=== PATIENT | male | born 1970 | race Caucasian/White ===

== ENCOUNTER 2023-03-14 09:25 | Outpatient (OUT) | payer OTHER, SELFPAY ==
[2023-03-14 10:14] LABS: Basophils Absolute Auto 0.1 10^3/uL (0.0-0.1); Basophils Percent Auto 1.5 % (0.2-2.0); Eosinophils Absolute Auto 0.3 10^3/uL (0.0-0.7); Eosinophils Percent Auto 4.4 % (0.9-7.0); Hematocrit 47.3 % (42.0-54.0); Hemoglobin 15.3 g/dL (14.0-18.0); Immature Granulocytes Abs Auto 0.04 10^3/uL (0.00-0.03); Immature Granulocytes Pct Auto 0.6 % (0.0-0.5); Lymphocytes Absolute Auto 1.8 10^3/uL (1.2-3.8); Lymphocytes Percent Auto 24.1 % (20.5-60.0); Mean Corpuscular HGB Conc 32.3 g/dL (29.9-35.2); Mean Corpuscular Hemoglobin 28.2 pg (25.9-34.0); Mean Corpuscular Volume 87.3 fL (80.0-94.0); Mean Platelet Volume 9.6 fL (9.5-13.5); Monocytes Absolute Auto 0.6 10^3/uL (0.3-0.8); Monocytes Percent Auto 8.3 % (1.7-12.0); Neutrophils Absolute Auto 4.4 10^3/uL (1.4-6.5); Neutrophils Percent Auto 61.1 % (43.0-75.0); Platelet Count 215 10^3/uL (150-450); Red Blood Count 5.42 10^6/uL (4.70-6.10); Red Cell Distribution Width 13.1 % (11.0-15.0); White Blood Count 7.3 10^3/uL (4.0-11.0)
[2023-03-14 10:50] LABS: Alanine Aminotransferase 71 U/L (16-63); Alkaline Phosphatase 69 U/L (46-116); Anion Gap 12.3; Aspartate Amino Transferase 32 U/L (15-37); Bilirubin Total 0.4 mg/dL (0.2-1.0); Calcium 9.2 mg/dL (8.5-10.1); Chloride 103 mmol/L (98-107); Chol HDL Ratio 5.6; Cholesterol 212 mg/dL (<=200); Estimated GFR (African America >60 (>=60); Estimated GFR (Non-African Ame >60 (>=60); Free T3 2.83 pg/mL (2.18-3.98); Globulin 4.1 g/dL; Glucose 103 mg/dL (74-106); HDL Cholesterol 38 mg/dL (40-60); Potassium 4.3 mmol/L (3.5-5.1); Sodium 140 mmol/L (136-145); Thyroid Stimulating Hormone 1.813 uIU/mL (0.358-3.740); Total Protein 8.1 g/dL (6.4-8.2); Triglycerides 122 mg/dL (<=150); Uric Acid 9.2 mg/dL (3.5-7.2); VLDL CHOLESTEROL 24.4 mg/dL
[2023-03-14 10:52] LABS: Prostate Specific Antigen Scrn 1.09 ng/mL (<=4.00)
[2023-03-14 11:19] LABS: Estimated Average Glucose 120 mg/dL; Glycohemoglobin A1C 5.8 % (4.5-6.2)
[2023-03-15 11:09] LABS: Insulin 39.3 uIU/mL (2.6-24.9)
== END 2023-03-14 09:26 | disposition home or self-care (01) ==
LOC: LAB 09:28
PROVIDERS: PCP Family Medicine; Visit Provider Family Medicine
DX: Z00.00 Encounter for general adult medical examination without abnormal findings (principal); Z12.5 Encounter for screening for malignant neoplasm of prostate
CPT/HCPCS: 36415; 80053; 80061; 83036; 83525; 84436; 84443; 84481; 84550; 85025; G0103

== ENCOUNTER 2023-03-17 06:58 | Outpatient (RCR) | payer OTHER, SELFPAY | END 2023-04-01 16:52 | disposition home or self-care (01) | LOC: PT 06:58 | PROVIDERS: PCP Family Medicine; Visit Provider Family Medicine | DX: M54.2 Cervicalgia (principal); M25.512 Pain in left shoulder; M25.561 Pain in right knee; M25.571 Pain in right ankle and joints of right foot; M25.521 Pain in right elbow; R29.3 Abnormal posture | CPT/HCPCS: 97163 ==

== ENCOUNTER 2023-05-23 09:34 | Outpatient (OUT) | payer OTHER, SELFPAY ==
[2023-05-23 09:51] LABS: Basophils Absolute Auto 0.1 10^3/uL (0.0-0.1); Basophils Percent Auto 0.9 % (0.2-2.0); Eosinophils Absolute Auto 0.5 10^3/uL (0.0-0.7); Eosinophils Percent Auto 5.3 % (0.9-7.0); Hematocrit 44.2 % (42.0-54.0); Hemoglobin 14.3 g/dL (14.0-18.0); Immature Granulocytes Abs Auto 0.04 10^3/uL (0.00-0.03); Immature Granulocytes Pct Auto 0.4 % (0.0-0.5); Lymphocytes Absolute Auto 2.2 10^3/uL (1.2-3.8); Lymphocytes Percent Auto 24.3 % (20.5-60.0); Mean Corpuscular HGB Conc 32.4 g/dL (29.9-35.2); Mean Corpuscular Volume 86.7 fL (80.0-94.0); Mean Platelet Volume 9.8 fL (9.5-13.5); Monocytes Absolute Auto 0.9 10^3/uL (0.3-0.8); Neutrophils Absolute Auto 5.4 10^3/uL (1.4-6.5); Neutrophils Percent Auto 59.1 % (43.0-75.0); Platelet Count 209 10^3/uL (150-450); Red Cell Distribution Width 13.5 % (11.0-15.0); White Blood Count 9.1 10^3/uL (4.0-11.0)
--- NOTE | 2023-05-23 09:55 | XR_ITS ---
The [address] [address] Patient Name: ROMERO SCOTT MRN: [id number] date: 1970 Sex: M Assigned Patient Location: LAB Current Patient Location: LAB Accession/Order Number: [id number] Exam Date: 05/23/2023 10:06 Report Date: 05/23/2023 11:53 At the request of: SHARATH IVORY Procedure: XR ankle RT min 3V EXAM: XR ankle RT min 3V HISTORY: Ankle Pain M25.579 COMPARISON: None TECHNIQUE: 3 views of the right ankle were obtained. FINDINGS: Ankle mortise appears grossly intact. No definite acute fracture or dislocation. Small spur at the medial aspect of the medial malleolus of the distal tibia. Small posterior calcaneal spur. [id number] soft tissue swelling laterally. Small ankle joint effusion suggested anteriorly on the lateral view. XR/XR ankle RT min 3V IMPRESSION: Right ankle study demonstrates degenerative change as described. Soft tissue swelling laterally as noted. Small ankle joint effusion suggested as described. Follow up as needed. Electronically authenticated by: EDUARDO GIRALDO Date: 05/23/2023 11:53
[2023-05-23 10:00] LABS: Erythrocyte Sedimentation Rate 23 mm/hr (<=20)
[2023-05-23 10:14] LABS: Uric Acid 7.2 mg/dL (3.5-7.2)
== END 2023-05-23 09:35 | disposition home or self-care (01) ==
LOC: LAB 09:35
PROVIDERS: PCP Family Medicine; Visit Provider Family Medicine
DX: M25.579 Pain in unspecified ankle and joints of unspecified foot (principal); M25.471 Effusion, right ankle
CPT/HCPCS: 36415; 73610; 84550; 85025; 85652

== ENCOUNTER 2023-06-09 09:25 | Outpatient (OUT) | payer OTHER, SELFPAY ==
--- NOTE | 2023-06-09 09:28 | MR_ITS ---
The [address] [address] Patient Name: ROMREO SCOTT MRN: [id number] date: 1970 Sex: M Assigned Patient Location: MRI Current Patient Location: Accession/Order Number: [id number] Exam Date: 06/09/2023 10:00 Report Date: 06/10/2023 08:47 At the request of: SHARATH IVORY Procedure: MR ankle RT wo con EXAM: MR ankle RT wo con REASON FOR EXAM: ankle pain M25.579. TECHNIQUE: Multiplanar, multisequence imaging of the right ankle was performed without contrast COMPARISON: Plain radiograph 05/23/2023. FINDINGS: There is fusiform thickening and intermediate signal involving the Achilles tendon with distal Achilles enthesophytes consistent with tendinosis. There is a small focal low-grade tear involving the lateral insertional fibers (series 11, image 11; series 8, image 12). Reactive edema within the posterior calcaneus. No evidence of complete tear. The plantar fascia is intact. Laterally, the peroneal tendons demonstrate mild thickening and intermediate signal proximally. The peroneus longus tendon at the level the peroneal tubercle extending to the peroneal tunnel appears thin and attenuated, potentially reflecting partial tearing. A complete rupture not identified. The superficial peroneal retinaculum is intact. Thickening and intermediate signal of the anterior talofibular and calcaneofibular ligaments is consistent with prior lateral ligamentous injury. There is also mild thickening and intermediate signal of the anterior syndesmotic ligament potentially reflect a remote high ankle sprain. Small amount of fluid is present within the anterior lateral gutter. Medially, the medial flexor tendons demonstrate normal thickness and signal without tendinosis or tear. The deep deltoid ligament is intact. The spring ligament is intact. Anteriorly, the anterior extensor tendons demonstrate normal thickness and signal without tendinosis or tear. The bone marrow signal is without acute fracture. Small moderate tibiotalar effusion is present. The talar dome is congruent. The subtalar joints intact. The sinus tarsi is mildly edematous. The midfoot is congruent with mild osteoarthritis. The plantar musculature demonstrates normal bulk and signal. Nonspecific subcutaneous edema about the ankle. MR/MR ankle RT wo con IMPRESSION: 1. 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 2. Peroneal tendinosis with suspicion of low to high-grade partial tearing of the peroneus longus tendon extending from the peroneal tubercle to the peroneal tunnel. Complete rupture not identified. 3. Sequela of prior lateral ligamentous injury including prior high ankle sprain. No evidence of acute ligamentous injury. 4. Small to moderate amount of fluid within the anterolateral gutter, can be seen with anterolateral impingement. 5. Mild mid and hindfoot osteoarthritis. Electronically authenticated by: RAI STAFFORD Date: 06/10/2023 08:47
== END 2023-06-09 09:26 | disposition home or self-care (01) ==
LOC: MRI 09:25
PROVIDERS: PCP Family Medicine; Visit Provider Family Medicine
DX: M25.579 Pain in unspecified ankle and joints of unspecified foot (principal); M76.61 Achilles tendinitis, right leg
CPT/HCPCS: 73721

== ENCOUNTER 2023-06-29 14:54 | Outpatient (OUT) | payer OTHER, SELFPAY ==
--- NOTE | 2023-06-29 | XR_ITS ---
The [address] [address] Patient Name: ROMERO SCOTT MRN: [id number] date: 1970 Sex: M Assigned Patient Location: RAD Current Patient Location: RAD Accession/Order Number: [id number] Exam Date: 06/29/2023 15:54 Report Date: 06/29/2023 19:52 At the request of: SETH BARNES Procedure: XR ankle RT min 3V EXAM: XR ankle RT min 3V HISTORY: RIGHT ANKLE PAIN laterally for the past 6 months. COMPARISON: 05/23/2023 TECHNIQUE: 3 views of the right ankle were obtained. FINDINGS: There is no evidence of an acute fracture or dislocation. The mortise is intact. No osteochondral injury is identified. The subtalar joints are intact. Mild soft tissue swelling laterally is noted. XR/XR ankle RT min 3V IMPRESSION: No acute fracture or dislocation. The joint spaces are intact. Soft tissue swelling laterally is noted. The overall appearance is unchanged. Electronically authenticated by: SETH JEFFREY Date: 06/29/2023 19:52
--- OUTSIDE RECORDS SUMMARY | 2023-06-29 15:11 | XMS_ITS | CCD ---
Author Name Unknown Address [address] [place] [address] Organization [facility] Care Team Providers Care Records Specialist Name Role Phone DR SHARATH IVORY Attending Unavailable DR SHARATH IVORY Consulting Unavailable DR SHARATH IVORY Primary Care Unavailable DR SHARATH IVORY Admitting Unavailable Allergies Allergy Classification Reported Allergen(s) Allergy Type Date of Onset Reaction(s) Facility (1 source) Sulfonamides (Antibiotic) Drug allergy (disorder) [facility] Repository Problems Problem Classification Problem Date Documented Da te Episodic/Chronic Other screening for suspected conditions (not mental disorders or infectious disease) (1 source) Encounter for screening for malignant neoplasm of prostate; Translations: [ENC SCREEN MALIG NEOPLASM PROSTATE] Onset: 02-04-2022 Episodic Results Test Name Value Interpretation Reference Range Facil ity INSULINon 02-04-2022 Insulin 9.2 uIU/mL Normal 2.6-24.9 [facility] Comment on above: Performed By: #### I NSULIN #### [facility] [address] [place] [address] Dr. Benjamin Clement CBC AUTO DIFFon 02-03-2022 BASO # 0.1 103/ul Normal 0.0-0.1 [facility] Comment on above: Performed By: #### C BC #### [facility] [address] [address] [address] Benjamin Clement Basophils/100 WBC (Bld) 0.8 % Normal 0.2-2.0 [facility] Comment on above: Performed By: #### C BC #### [facility] [address] [place] [address] Dr. Benjamin Clement EO # 0.2 103/ul Normal 0.0-0.7 [facility] Comment on above: Performed By: #### C BC #### [facility] [address] [place] [address] Dr. Benjamin Clement Eosinophils/100 WBC (Bld) 3.1 % Normal 0.9-7.0 [facility] Comment on above: Performed By: #### C BC #### [facility] [address] [place] [address] Dr. Benjamin Clement Erythrocyte distribution width (RBC) [Ratio] 13.1 % Normal 11.0-15.0 [facility] Comment on above: Performed By: #### C BC #### [facility] [address] [place] [address] Dr. Benjamin Clement Hematocrit (Bld) [Volume fraction] 44.0 % Normal 42.0-54.0 [facility] Comment on above: Performed By: #### C BC #### [facility] [address] [place] [address] Dr. Benjamin Clement Hemoglobin (Bld) [Mass/Vol] 14.6 g/dL Normal 14.0-18.0 [facility] Comment on above: Performed By: #### C BC #### [facility] [address] [place] [address] Dr. Benjamin Clement IG # 0.03 10e3/ul Normal 0.00-0.03 [facility] Comment on above: Performed By: #### C BC #### [facility] [address] [place] [address] Dr. Benjamin Clement IG % 0.5 % Normal 0.0-0.5 [facility] Comment on above: Performed By: #### C BC #### [facility] [address] [place] [address] Dr. Benjamin Clement LYMPH # 1.8 103/ul Normal 1.2-3.8 [facility] Comment on above: Performed By: #### C BC #### [facility] [address] [place] [address] Dr. Benjamin Clement Lymphocytes/100 WBC (Bld) 27.1 % Normal 20.5-60.0 [facility] Comment on above: Performed By: #### C BC #### [facility] [address] [place] [address] Dr. Benjamin Clement MANUAL DIFF REQ NO Normal [facility] Comment on above: Performed By: #### C BC #### [facility] [address] [place] [address] Dr. Benjamin Clement MCH (RBC) [Entitic mass] 28.3 pg Normal 25.9-34.0 [facility] Comment on above: Performed By: #### C BC #### [facility] [address] [place] [address] Dr. Benjamin Clement MCHC (RBC) [Mass/Vol] 33.2 g/dL Normal 29.9-35.2 [facility] Comment on above: Performed By: #### C BC #### [facility] [address] [place] [address] Dr. Benjamin Clement MCV (RBC) [Entitic vol] 85.4 fL Normal 80.0-94.0 [facility] Comment on above: Performed By: #### C BC #### [facility] [address] [place] [address] Dr. Benjamin Clement MONO # 0.6 103/ul Normal 0.3-0.8 [facility] Comment on above: Performed By: #### C BC #### [facility] [address] [place] [address] Dr. Benjamin Clement Monocytes/100 WBC (Bld) 8.6 % Normal 1.7-12.0 [facility] Comment on above: Performed By: #### C BC #### [facility] [address] [place] [address] Dr. Benjamin Clement NEUT # 3.9 103/ul Normal 1.4-6.5 [facility] Comment on above: Performed By: #### C BC #### [facility] [address] [place] [address] Dr. Benjamin Clement Neutrophils/100 WBC (Bld) 59.9 % Normal 43.0-75.0 [facility] Comment on above: Performed By: #### C BC #### [facility] [address] [place] [address] Dr. Benjamin Clement Platelet mean volume (Bld) [Entitic vol] 10.2 fL Normal 9.5-13.5 [facility] Comment on above: Performed By: #### C BC #### [facility] [address] [place] [address] Dr. Benjamin Clement PLT 205 103/ul Normal 150-450 [facility] Comment on above: Performed By: #### C BC #### [facility] [address] [address] [address] Benjamin Clement RBC 5.15 106/ul Normal 4.70-6.10 [facility] Comment on above: Performed By: #### C BC #### [facility] [address] [place] [address] Dr. Benjamin Clement WBC 6.5 103/ul Normal 4.0-11.0 [facility] Comment on above: Performed By: #### C BC #### [facility] [address] [place] [address] Dr. Benjamin Clement GLYCOHEMOGLOBIN A1Con 2021 ADA RECOMMENDATION SEE BELOW Normal [facility] Comment on above: Result Comment: ADA RECOMMENDED LIMIT 4.0 - 6.0 ADA THERAPEUTIC TARGET < 7.0 ACTION SUGGESTED > 7.0 Performed By: #### A 1C #### [facility] [address] [place] [address] Dr. Benjamin Clement Glucose [Mass/Vol] 123 mg/dL Normal [facility] Comment on above: Performed By: #### A 1C #### [facility] [address] [place] [address] Dr. Benjamin Clement HbA1c (Bld) [Mass fraction] 5.9 % Normal 4.5-6.2 [facility] Comment on above: Performed By: #### A 1C #### [facility] [address] [place] [address] Dr. Benjamin Clement LIPID PROFILEon 02-03-2022 CHOL-HDL RATIO NORM SEE BELOW Normal [facility] Comment on above: Result Comment: 3.3 - 4.4 LOW RISK 4.4 - 7.1 AVERAGE RISK 7.1 - 11.0 MODERATE RISK >11.0 HIGH RISK Performed By: #### C MP, LIPID, URIC #### [facility] [address] [address] [address] Benjamin Clement Cholesterol [Mass/Vol] 203 mg/dL Critically high <=200 [facility] Comment on above: Performed By: #### C MP, LIPID, URIC #### [facility] [address] [address] [address] Benjamin Clement Cholesterol in HDL [Mass/Vol] 41 mg/dL Normal 40-60 [facility] Comment on above: Performed By: #### C MP, LIPID, URIC #### [facility] [address] [address] [address] Benjamin Clement Cholesterol in LDL [Mass/Vol] 145.6 mg/dL Normal [facility] Comment on above: Performed By: #### C MP, LIPID, URIC #### [facility] [address] [place] [address] Dr. Benjamin Clement Cholesterol.total/Cho lesterol in HDL [Mass ratio] 5.0 {ratio} Normal [facility] Comment on above: Performed By: #### C MP, LIPID, URIC #### [facility] [address] [address] [address] Benjamin Clement HDL NORMAL > or = 60 mg/dl - LOW CARDIOVASCULAR RISK <40 mg/dl - HIGH CARDIOVASCULAR RISK Normal [facility] Comment on above: Performed By: #### C MP, LIPID, URIC #### [facility] [address] [address] [address] Benjamin Clement LDL CALC NORMAL SEE BELOW Normal [facility] Comment on above: Result Comment: <100 mg/dl OPTIMAL 100 - 129 mg/dl NEAR OR ABOVE OPTIMAL 130 - 159 mg/dl BORDERLINE HIGH 160 - 189 mg/dl HIGH >190 mg/dl VERY HIGH Performed By: #### C MP, LIPID, URIC #### [facility] [address] [address] [address] Benjamin Clement Triglyceride [Mass/Vol] 82 mg/dL Normal <=150 [facility] Comment on above: Performed By: #### C MP, LIPID, URIC #### [facility] [address] [address] [address] Benjamin Clement VLDL CALC 16.4 mg/dL Normal [facility] Comment on above: Performed By: #### C MP, LIPID, URIC #### [facility] [address] [address] [address] Benjamin Clement PROF 14(COMP METB)on 022 Albumin [Mass/Vol] 4.2 g/dL Normal 3.4-5.0 [facility] Comment on above: Performed By: #### C MP, LIPID, URIC #### [facility] [address] [address] [address] Benjamin Clement Albumin/Globulin [Mass ratio] 1.2 {ratio} Normal [facility] Comment on above: Performed By: #### C MP, LIPID, URIC #### [facility] [address] [address] [address] Benjamin Clement ALP [Catalytic activity/Vol] 61 U/L Normal 46-116 [facility] Comment on above: Performed By: #### C MP, LIPID, URIC #### [facility] [address] [address] [address] Benjamin Clement ALT [Catalytic activity/Vol] 49 U/L Normal 16-63 [facility] Comment on above: Performed By: #### C MP, LIPID, URIC #### [facility] [address] [address] [address] Benjamin Clement Anion gap [Moles/Vol] 12.2 mmol/L Normal [facility] Comment on above: Performed By: #### C MP, LIPID, URIC #### [facility] [address] [address] [address] Benjamin Clement AST [Catalytic activity/Vol] 26 U/L Normal 15-37 [facility] Comment on above: Performed By: #### C MP, LIPID, URIC #### [facility] [address] [address] [address] Benjamin Clement Bilirubin [Mass/Vol] 0.5 mg/dL Normal 0.2-1.0 [facility] Comment on above: Performed By: #### C MP, LIPID, URIC #### [facility] [address] [address] [address] Benjamin Clement Calcium [Mass/Vol] 8.9 mg/dL Normal 8.5-10.1 [facility] Comment on above: Performed By: #### C MP, LIPID, URIC #### [facility] [address] [address] [address] Benjamin Clement Chloride [Moles/Vol] 103 mmol/L Normal 98-107 [facility] Comment on above: Performed By: #### C MP, LIPID, URIC #### [facility] [address] [place] [address] Dr. Benjamin Clement CO2 [Moles/Vol] 26.9 mmol/L Normal 21.0-32.0 [facility] Comment on above: Performed By: #### C MP, LIPID, URIC #### [facility] [address] [place] [address] Dr. Benjamin Clement Creatinine [Mass/Vol] 0.94 mg/dL Normal 0.70-1.30 [facility] Comment on above: Performed By: #### C MP, LIPID, URIC #### [facility] [address] [place] [address] Dr. Benjamin Clement EGFR-AF COLOMBIAN >60 Normal >=60 [facility] Comment on above: Performed By: #### C MP, LIPID, URIC #### [facility] [address] [place] [address] Dr. Benjamin Clement EGFR-NON AF COLOMBIAN >60 Normal >=60 [facility] Comment on above: Performed By: #### C MP, LIPID, URIC #### [facility] [address] [address] [address] Benjamin Clement Globulin (S) [Mass/Vol] 3.5 g/dL Normal [facility] Comment on above: Performed By: #### C MP, LIPID, URIC #### [facility] [address] [address] [address] Benjamin Clement Glucose [Mass/Vol] 88 mg/dL Normal 74-106 [facility] Comment on above: Performed By: #### C MP, LIPID, URIC #### [facility] [address] [address] [address] Benjamin Clement Potassium [Moles/Vol] 4.1 mmol/L Normal 3.5-5.1 [facility] Comment on above: Performed By: #### C MP, LIPID, URIC #### [facility] [address] [place] [address] Dr. Benjamin Clement Protein [Mass/Vol] 7.7 g/dL Normal 6.4-8.2 [facility] Comment on above: Performed By: #### C MP, LIPID, URIC #### [facility] [address] [place] [address] Dr. Benjamin Clement Sodium [Moles/Vol] 138 mmol/L Normal 136-145 [facility] Comment on above: Performed By: #### C MP, LIPID, URIC #### [facility] [address] [address] [address] Benjamin Clement Urea nitrogen [Mass/Vol] 17.0 mg/dL Normal 7.0-18.0 [facility] Comment on above: Performed By: #### C MP, LIPID, URIC #### [facility] [address] [place] [address] Dr. Benjamin Clement Urea nitrogen/Creatinine [Mass ratio] 18.1 mg/mg Normal [facility] Comment on above: Performed By: #### C MP, LIPID, URIC #### [facility] [address] [place] [address] Dr. Benjamin Clement URIC ACID SERUMon 02-03-2022 Urate [Mass/Vol] 8.6 mg/dL Critically high 3.5-7.2 [facility] Comment on above: Performed By: #### C MP, LIPID, URIC #### [facility] [address] [place] [address] Dr. Benjamin Clement Encounters Encounter Date Encounter Type Care Provider Facility Start: 02-04-2022 Encounter for genera l adult medical examination without abnormal findings DR SHARATH IVORY [facility] Start: 02-03-2022 End: 02-04-[address] SHARATH IVORY Facility:[facility] Start: 02-03-2022 End: 02-04-2022 Encounter for general adult medical examination without abnormal findings DR SHARATH IVORY Facility:[facility] Procedures Date Procedure Procedure Detail Performing Clinician Start: 02-03-[address] NIKIA IVORY Comment on above: Performed By: #### [facility] #### [facility] [address] [address] [address] Benjamin Clement Payers Date Payer Category Payer Unknown [id number] 1960 Unknown [id number] Summary Purpose Family History No Family History Records Found Advance Directives No Advanced Directives Records Found Additional Source Comments (unrecognized sect ion and content) No Status Records Found INFORMATION SOURCE (unrecogn ized section and content) DATE CREATED AUTHOR 02/10/2022 [facility] FOR RECORDS PERTAINING TO PATIENTS WHO ARE OR HAVE BEEN ENROLLED IN A CHEMICAL DEPENDENCY/SUBSTANCEABUSE PROGRAM, SOME INFORMATION MAY BE OMITTED. This clinical summary was aggregated from multiple sources. Caution should be exercised in using it in the provision of clinical care. This summary normalizes information from multiple sources, and as a consequence, information in this document may materially change the coding, format and clinical context of patient data. In addition, data may be omitted in some cases. CLINICAL DECISIONS SHOULD BE BASED ON THE PRIMARY CLINICAL RECORDS. [facility] [employer] [facility]. provides no warranty or guarantee of the accuracy or completeness of information in this document.
== END 2023-06-29 14:55 | disposition home or self-care (01) ==
LOC: RAD 14:55
PROVIDERS: PCP Family Medicine; Visit Provider Podiatrist Foot & Ankle Surgery
DX: M19.071 Primary osteoarthritis, right ankle and foot (principal)
CPT/HCPCS: 73610

== ENCOUNTER 2024-02-13 09:28 | Outpatient (OUT) | payer OTHER, SELFPAY ==
--- OUTSIDE RECORDS SUMMARY | 2024-02-13 09:44 | XMS_ITS | CCD ---
Author Organization [employer] [facility] Care Team Providers Care [employer] Name Role Phone DR SHARATH IVORY Attending Unavailable DR SHARATH IVORY Consulting Unavailable DR SHARATH IVORY Primary Care Unavailable DR SHARATH IVORY Admitting Unavailable Allergies Allergy Classification Reported Allergen(s) Allergy Type Date of Onset Reaction(s) Facility (1 source) Sulfonamides (Antibiotic) Drug allergy (disorder) [facility] Repository Problems Problem Classification Problem Date Documented Da te Episodic/Chronic Other screening for suspected conditions (not mental disorders or infectious disease) (1 source) Encounter for screening for malignant neoplasm of prostate; Translations: [ENC SCREEN MALIG NEOPLASM PROSTATE] Onset: 02-04-2022 Episodic Results Test Name Value Interpretation Reference Range Facil ity INSULINon 02-04-2022 Insulin 9.2 uIU/mL Normal 2.6-24.9 [facility] Comment on above: Performed By: #### I NSULIN #### [facility] [address] [place] [address] Dr. Benjamin Clement CBC AUTO DIFFon 02-03-2022 BASO # 0.1 103/ul Normal 0.0-0.1 [facility] Comment on above: Performed By: #### C BC #### [facility] [address] [place] [address] Dr. Benjamin Clement Basophils/100 WBC (Bld) 0.8 % Normal 0.2-2.0 [facility] Comment on above: Performed By: #### C BC #### [facility] [address] [place] [address] Dr. Benjamin Clement EO # 0.2 103/ul Normal 0.0-0.7 [facility] Comment on above: Performed By: #### C BC #### [facility] [address] [place] [address] Dr. Benjamin Clement Eosinophils/100 WBC (Bld) 3.1 % Normal 0.9-7.0 [facility] Comment on above: Performed By: #### C BC #### [facility] [address] [place] [address] Dr. Benjamin Clement Erythrocyte distribution width (RBC) [Ratio] 13.1 % Normal 11.0-15.0 [facility] Comment on above: Performed By: #### C BC #### [facility] [address] [place] [address] Dr. Benjamin Clement Hematocrit (Bld) [Volume fraction] 44.0 % Normal 42.0-54.0 [facility] Comment on above: Performed By: #### C BC #### [facility] [address] [place] [address] Dr. Benjamin Clement Hemoglobin (Bld) [Mass/Vol] 14.6 g/dL Normal 14.0-18.0 [facility] Comment on above: Performed By: #### C BC #### [facility] [address] [place] [address] Dr. Benjamin Clement IG # 0.03 10e3/ul Normal 0.00-0.03 [facility] Comment on above: Performed By: #### C BC #### [facility] [address] [place] [address] Dr. Benjamin Cleemnt IG % 0.5 % Normal 0.0-0.5 [facility] Comment on above: Performed By: #### C BC #### [facility] [address] [place] [address] Dr. Benjamin Clement LYMPH # 1.8 103/ul Normal 1.2-3.8 [facility] Comment on above: Performed By: #### C BC #### [facility] [address] [place] [address] Dr. Benjamin Clement Lymphocytes/100 WBC (Bld) 27.1 % Normal 20.5-60.0 [facility] Comment on above: Performed By: #### C BC #### [facility] [address] [place] [address] Dr. Benjamin Clement MANUAL DIFF REQ NO Normal [facility] Comment on above: Performed By: #### C BC #### [facility] [address] [place] [address] Dr. Benjamin Clement MCH (RBC) [Entitic mass] 28.3 pg Normal 25.9-34.0 [facility] Comment on above: Performed By: #### C BC #### [facility] [address] [place] [address] Dr. Benjamin Clement MCHC (RBC) [Mass/Vol] 33.2 g/dL Normal 29.9-35.2 [facility] Comment on above: Performed By: #### C BC #### [facility] [address] [place] [address] Dr. Benjamin Clement MCV (RBC) [Entitic vol] 85.4 fL Normal 80.0-94.0 [facility] Comment on above: Performed By: #### C BC #### [facility] [address] [place] [address] Dr. Benjamin Clement MONO # 0.6 103/ul Normal 0.3-0.8 [facility] Comment on above: Performed By: #### C BC #### [facility] [address] [place] [address] Dr. Benjamin Clement Monocytes/100 WBC (Bld) 8.6 % Normal 1.7-12.0 [facility] Comment on above: Performed By: #### C BC #### [facility] [address] [place] [address] Dr. Benjamin Clement NEUT # 3.9 103/ul Normal 1.4-6.5 [facility] Comment on above: Performed By: #### C BC #### [facility] [address] [place] [address] Dr. Benjamin Clement Neutrophils/100 WBC (Bld) 59.9 % Normal 43.0-75.0 [facility] Comment on above: Performed By: #### C BC #### [facility] [address] [place] [address] Dr. Benjamin Clement Platelet mean volume (Bld) [Entitic vol] 10.2 fL Normal 9.5-13.5 [facility] Comment on above: Performed By: #### C BC #### [facility] [address] [place] [address] Dr. Benjamin Clement PLT 205 103/ul Normal 150-450 [facility] Comment on above: Performed By: #### C BC #### [facility] [address] [place] [address] Dr. Benjamin Clement RBC 5.15 106/ul Normal 4.70-6.10 [facility] Comment on above: Performed By: #### C BC #### [facility] [address] [place] [address] Dr. Benjamin Clement WBC 6.5 103/ul Normal 4.0-11.0 [facility] Comment on above: Performed By: #### C BC #### [facility] [address] [place] [address] Dr. Benjamin Clement GLYCOHEMOGLOBIN A1Con 2021 ADA RECOMMENDATION SEE BELOW Normal [facility] Comment on above: Result Comment: ADA RECOMMENDED LIMIT 4.0 - 6.0 ADA THERAPEUTIC TARGET < 7.0 ACTION SUGGESTED > 7.0 Performed By: #### A 1C #### [facility] [address] [place] [address] Dr. Benjamin Clement Glucose [Mass/Vol] 123 mg/dL Normal [facility] Comment on above: Performed By: #### A 1C #### [facility] [address] [place] [address] Dr. Benjamin Clement HbA1c (Bld) [Mass fraction] 5.9 % Normal 4.5-6.2 [facility] Comment on above: Performed By: #### A 1C #### [facility] [address] [place] [address] Dr. Benjamin Clement LIPID PROFILEon 02-03-2022 CHOL-HDL RATIO NORM SEE BELOW Normal [place] Comment on above: Result Comment: 3.3 - 4.4 LOW RISK 4.4 - 7.1 AVERAGE RISK 7.1 - 11.0 MODERATE RISK >11.0 HIGH RISK Performed By: #### C MP, LIPID, URIC #### [facility] [address] [address] [address] Benjamin Clement Cholesterol [Mass/Vol] 203 mg/dL Critically high <=200 [facility] Comment on above: Performed By: #### C MP, LIPID, URIC #### [facility] [address] [address] [address] Benjamin Clement Cholesterol in HDL [Mass/Vol] 41 mg/dL Normal 40-60 [facility] Comment on above: Performed By: #### C MP, LIPID, URIC #### [facility] [address] [address] [address] Benjamin Clement Cholesterol in LDL [Mass/Vol] 145.6 mg/dL Normal [facility] Comment on above: Performed By: #### C MP, LIPID, URIC #### [facility] [address] [address] [address] Benjamin Clement Cholesterol.total/Cho lesterol in HDL [Mass ratio] 5.0 {ratio} Normal [facility] Comment on above: Performed By: #### C MP, LIPID, URIC #### [facility] [address] [address] [address] Benjamin Clement HDL NORMAL > or = 60 mg/dl - LOW CARDIOVASCULAR RISK <40 mg/dl - HIGH CARDIOVASCULAR RISK Normal [facility] Comment on above: Performed By: #### C MP, LIPID, URIC #### [facility] [address] [address] [address] Benjamin Clement LDL CALC NORMAL SEE BELOW Normal [facility] Comment on above: Result Comment: <100 mg/dl OPTIMAL 100 - 129 mg/dl NEAR OR ABOVE OPTIMAL 130 - 159 mg/dl BORDERLINE HIGH 160 - 189 mg/dl HIGH >190 mg/dl VERY HIGH Performed By: #### C MP, LIPID, URIC #### [facility] [address] [address] [address] Benjamin Clement Triglyceride [Mass/Vol] 82 mg/dL Normal <=150 [facility] Comment on above: Performed By: #### C MP, LIPID, URIC #### [facility] [address] [address] [address] Benjamin Clement VLDL CALC 16.4 mg/dL Normal [facility] Comment on above: Performed By: #### C MP, LIPID, URIC #### [facility] [address] [place] [address] Dr. Benjamin Clmeent PROF 14(COMP METB)on 022 Albumin [Mass/Vol] 4.2 g/dL Normal 3.4-5.0 [facility] Comment on above: Performed By: #### C MP, LIPID, URIC #### [facility] [address] [place] [address] Dr. Benjamin Clement Albumin/Globulin [Mass ratio] 1.2 {ratio} Normal [facility] Comment on above: Performed By: #### C MP, LIPID, URIC #### [facility] [address] [place] [address] Dr. Benjamin Clement ALP [Catalytic activity/Vol] 61 U/L Normal 46-116 [facility] Comment on above: Performed By: #### C MP, LIPID, URIC #### [facility] [address] [place] [address] Dr. Benjamin Clement ALT [Catalytic activity/Vol] 49 U/L Normal 16-63 [facility] Comment on above: Performed By: #### C MP, LIPID, URIC #### [facility] [address] [place] [address] Dr. Benjamin Clement Anion gap [Moles/Vol] 12.2 mmol/L Normal [facility] Comment on above: Performed By: #### C MP, LIPID, URIC #### [facility] [address] [place] [address] Dr. Benjamin Clement AST [Catalytic activity/Vol] 26 U/L Normal 15-37 [facility] Comment on above: Performed By: #### C MP, LIPID, URIC #### [facility] [address] [place] [address] Dr. Benjamin Clement Bilirubin [Mass/Vol] 0.5 mg/dL Normal 0.2-1.0 [facility] Comment on above: Performed By: #### C MP, LIPID, URIC #### [facility] [address] [address] [address] Benjamin Clement Calcium [Mass/Vol] 8.9 mg/dL Normal 8.5-10.1 [facility] Comment on above: Performed By: #### C MP, LIPID, URIC #### [facility] [address] [address] [address] Benjamin Clement Chloride [Moles/Vol] 103 mmol/L Normal 98-107 [facility] Comment on above: Performed By: #### C MP, LIPID, URIC #### [facility] [address] [address] [address] Benjamin Clement CO2 [Moles/Vol] 26.9 mmol/L Normal 21.0-32.0 [facility] Comment on above: Performed By: #### C MP, LIPID, URIC #### [facility] [address] [place] [address] Dr. Benjamin Clement Creatinine [Mass/Vol] 0.94 mg/dL Normal 0.70-1.30 [facility] Comment on above: Performed By: #### C MP, LIPID, URIC #### [facility] [address] [place] [address] Dr. Benjamin Clement EGFR-AF FINNISH >60 Normal >=60 [facility] Comment on above: Performed By: #### C MP, LIPID, URIC #### [facility] [address] [place] [address] Dr. Benjamin Clement EGFR-NON AF FINNISH >60 Normal >=60 [facility] Comment on above: Performed By: #### C MP, LIPID, URIC #### [facility] [address] [place] [address] Dr. Benjamin Clement Globulin (S) [Mass/Vol] 3.5 g/dL Normal [facility] Comment on above: Performed By: #### C MP, LIPID, URIC #### [facility] [address] [place] [address] Dr. Benjamin Clement Glucose [Mass/Vol] 88 mg/dL Normal 74-106 [facility] Comment on above: Performed By: #### C MP, LIPID, URIC #### [facility] [address] [address] [address] Benjamin Clement Potassium [Moles/Vol] 4.1 mmol/L Normal 3.5-5.1 [facility] Comment on above: Performed By: #### C MP, LIPID, URIC #### [facility] [address] [place] [address] Dr. Benjamin Clement Protein [Mass/Vol] 7.7 g/dL Normal 6.4-8.2 [facility] Comment on above: Performed By: #### C MP, LIPID, URIC #### [facility] [address] [address] [address] Benjamin Clement Sodium [Moles/Vol] 138 mmol/L Normal 136-145 [facility] Comment on above: Performed By: #### C MP, LIPID, URIC #### [facility] [address] [address] [address] Benjamin Clement Urea nitrogen [Mass/Vol] 17.0 mg/dL Normal 7.0-18.0 [facility] Comment on above: Performed By: #### C MP, LIPID, URIC #### [facility] [address] [place] [address] Dr. Benjamin Clement Urea nitrogen/Creatinine [Mass ratio] 18.1 mg/mg Normal [facility] Comment on above: Performed By: #### C MP, LIPID, URIC #### [facility] [address] [place] [address] Dr. Benjamin Clement URIC ACID SERUMon 02-03-2022 Urate [Mass/Vol] 8.6 mg/dL Critically high 3.5-7.2 [facility] Comment on above: Performed By: #### C MP, LIPID, URIC #### [facility] [address] [place] [address] Dr. Benjamin Clement Encounters Encounter Date Encounter Type Care Provider Facility Start: 02-04-2022 Encounter for genera l adult medical examination without abnormal findings DR SHARATH IVORY [facility] Start: 02-03-2022 End: 02-04-[address] SHARATH IVORY Facility:[facility] Start: 02-03-2022 End: 02-04-2022 Encounter for general adult medical examination without abnormal findings DR SHARATH IVORY Facility:[facility] Procedures Date Procedure Procedure Detail Performing Clinician Start: 02-03-[address] NIKIA IVORY Comment on above: Performed By: #### P [facility] #### [facility] [address] [address] [address] Benjamin Clement Payers Date Payer Category Payer Unknown [id number] 1960 Unknown [id number] Summary Purpose Family History No Family History Records Found Advance Directives No Advanced Directives Records Found Additional Source Comments (unrecognized sect ion and content) No Status Records Found INFORMATION SOURCE (unrecogn ized section and content) DATE CREATED AUTHOR 02/10/2022 [facility] FOR RECORDS PERTAINING TO PATIENTS WHO ARE [...] BE BASED ON THE PRIMARY CLINICAL RECORDS. [facility]. provides no warranty or guarantee of the accuracy or completeness of information in this document.
[2024-02-13 10:17] LABS: Basophils Absolute Auto 0.1 10^3/uL (0.0-0.1); Basophils Percent Auto 1.3 % (0.2-2.0); Eosinophils Absolute Auto 0.4 10^3/uL (0.0-0.7); Eosinophils Percent Auto 5.9 % (0.9-7.0); Hemoglobin 14.8 g/dL (14.0-18.0); Immature Granulocytes Abs Auto 0.02 10^3/uL (0.00-0.03); Immature Granulocytes Pct Auto 0.3 % (0.0-0.5); Lymphocytes Absolute Auto 1.8 10^3/uL (1.2-3.8); Mean Corpuscular HGB Conc 32.9 g/dL (29.9-35.2); Mean Corpuscular Hemoglobin 28.4 pg (25.9-34.0); Mean Corpuscular Volume 86.4 fL (80.0-94.0); Mean Platelet Volume 10.4 fL (9.5-13.5); Monocytes Absolute Auto 0.6 10^3/uL (0.3-0.8); Monocytes Percent Auto 9.3 % (1.7-12.0); Neutrophils Absolute Auto 3.8 10^3/uL (1.4-6.5); Neutrophils Percent Auto 56.2 % (43.0-75.0); Platelet Count 198 10^3/uL (150-450); Red Blood Count 5.21 10^6/uL (4.70-6.10); Red Cell Distribution Width 13.4 % (11.0-15.0); White Blood Count 6.8 10^3/uL (4.0-11.0)
[2024-02-13 10:29] LABS: Estimated Average Glucose 114 mg/dL; Glycohemoglobin A1C 5.6 % (4.5-6.2)
[2024-02-13 10:47] LABS: Alanine Aminotransferase 52 U/L (16-63); Albumin Globulin Ratio 1.1; Albumin Level 3.8 g/dL (3.4-5.0); Alkaline Phosphatase 61 U/L (46-116); Anion Gap 14.6; Aspartate Amino Transferase 28 U/L (15-37); BUN Creatinine Ratio 12.2; Bilirubin Total 0.7 mg/dL (0.2-1.0); Calcium 9.2 mg/dL (8.5-10.1); Carbon Dioxide 26.5 mmol/L (21.0-32.0); Chloride 104 mmol/L (98-107); Chol HDL Ratio 4.5; Cholesterol 199 mg/dL (<=200); Estimated GFR (African America >60 (>=60); Estimated GFR (Non-African Ame >60 (>=60); Free T3 2.62 pg/mL (2.18-3.98); Globulin 3.4 g/dL; Glucose 94 mg/dL (74-106); HDL Cholesterol 44 mg/dL (40-60); LDL Cholesterol Calculated 136.4 mg/dL; Potassium 4.1 mmol/L (3.5-5.1); Sodium 141 mmol/L (136-145); Thyroid Stimulating Hormone 1.381 uIU/mL (0.358-3.740); Total Protein 7.2 g/dL (6.4-8.2); Triglycerides 93 mg/dL (<=150); Uric Acid 8.3 mg/dL (3.5-7.2); VLDL CHOLESTEROL 18.6 mg/dL
[2024-02-14 10:10] LABS: Insulin 24.2 uIU/mL (2.6-24.9)
== END 2024-02-13 09:29 | disposition home or self-care (01) ==
LOC: LAB 09:29
PROVIDERS: PCP Family Medicine; Visit Provider Family Medicine
DX: Z00.00 Encounter for general adult medical examination without abnormal findings (principal); E03.9 Hypothyroidism, unspecified
CPT/HCPCS: 36415; 80053; 80061; 83036; 83525; 84436; 84443; 84481; 84550; 85025; G0103

== ENCOUNTER 2024-04-16 09:50 | Outpatient (OUT) | payer OTHER, SELFPAY ==
--- NOTE | 2024-04-16 09:57 | US_ITS ---
The [address] [address] Patient Name: ROMERO SCOTT MRN: [id number] date: 1970 Sex: M Assigned Patient Location: US Current Patient Location: US Accession/Order Number: [id number] Exam Date: 04/16/2024 09:58 Report Date: 04/16/2024 15:15 At the request of: SHARATH IVORY Procedure: US extremity nonvascular LT EXAM: US extremity nonvascular LT HISTORY: Axillary Mass Left R22.32 COMPARISON: None. TECHNIQUE: Guzman scale and color Doppler imaging was used to evaluate the area of interest. FINDINGS: No focal abnormality is seen at the area of interest within the left axillary region. No focal mass. No lipoma. No lymphadenopathy. US/US extremity nonvascular LT IMPRESSION: No abnormality noted at the area of interest. Electronically authenticated by: Finn SAPP Date: 04/16/2024 15:15
--- OUTSIDE RECORDS SUMMARY | 2024-04-16 10:09 | XMS_ITS | CCD ---
Author Organization [place] [employer] [facility] Care Team Providers Care Screw Cutter Name Role Phone DR SHARATH IVORY Attending Unavailable DR SHARATH IVORY Consulting Unavailable DR SHARATH IVORY Primary Care Unavailable DR SHARATH IVORY Admitting Unavailable Allergies Allergy Classification Reported Allergen(s) Allergy Type Date of Onset Reaction(s) Facility (1 source) Sulfonamides (Antibiotic) Drug allergy (disorder) [facility] Rep[facility] Problems Problem Classification Problem Date Documented Da te Episodic/Chronic Other screening for suspected conditions (not mental disorders or infectious disease) (1 source) Encounter for screening for malignant neoplasm of prostate; Translations: [ENC SCREEN MALIG NEOPLASM PROSTATE] Onset: 02-04-2022 Episodic Results Test Name Value Interpretation Reference Range Facil ity INSULINon 02-04-2022 Insulin 9.2 uIU/mL Normal 2.6-24.9 [facility] Comment on above: Performed By: #### I NSULIN #### [facility] [address] [place] [address] Dr. Benjamin Clement CBC AUTO DIFFon 02-03-2022 BASO # 0.1 103/ul Normal 0.0-0.1 [facility] Comment on above: Performed By: #### C BC #### [facility] [address] [place] [address] Dr. Benjamin Clement Basophils/100 WBC (Bld) 0.8 % Normal 0.2-2.0 [facility] Comment on above: Performed By: #### C BC #### [facility] [address] [place] [address] Dr. Benjamin Clement EO # 0.2 103/ul Normal 0.0-0.7 [facility] Comment on above: Performed By: #### C BC #### [facility] [address] [place] [address] Dr. Benjamin Clement Eosinophils/100 WBC (Bld) 3.1 % Normal 0.9-7.0 [facility] Comment on above: Performed By: #### C BC #### [facility] [address] [place] [address] Dr. Benjamin Clement Erythrocyte distribution width (RBC) [Ratio] 13.1 % Normal 11.0-15.0 [facility] Comment on above: Performed By: #### C BC #### [facility] [address] [place] [address] Dr. Benjamin Clement Hematocrit (Bld) [Volume fraction] 44.0 % Normal 42.0-54.0 [facility] Comment on above: Performed By: #### C BC #### [facility] [address] [place] [address] Dr. Benjamin Clement Hemoglobin (Bld) [Mass/Vol] 14.6 g/dL Normal 14.0-18.0 [facility] Comment on above: Performed By: #### C BC #### [facility] [address] [place] [address] Dr. Benjamin Clement IG # 0.03 10e3/ul Normal 0.00-0.03 [facility] Comment on above: Performed By: #### C BC #### [facility] [address] [place] [address] Dr. Benjamin Clement IG % 0.5 % Normal 0.0-0.5 [facility] Comment on above: Performed By: #### C BC #### [facility] [address] [place] [address] Dr. Benjamin Clement LYMPH # 1.8 103/ul Normal 1.2-3.8 [facility] Comment on above: Performed By: #### C BC #### [facility] [address] [place] [address] Dr. Benjamin Clement Lymphocytes/100 WBC (Bld) 27.1 % Normal 20.5-60.0 [facility] Comment on above: Performed By: #### C BC #### [facility] [address] [place] [address] Dr. Benjamin Clement MANUAL DIFF REQ NO Normal [facility] Comment on above: Performed By: #### C BC #### [facility] [address] [place] [address] Dr. Benjamin Clement MCH (RBC) [Entitic mass] 28.3 pg Normal 25.9-34.0 [facility] Comment on above: Performed By: #### C BC #### [facility] [address] [place] [address] Dr. Benjamin Clement MCHC (RBC) [Mass/Vol] 33.2 g/dL Normal 29.9-35.2 [facility] Comment on above: Performed By: #### C BC #### [facility] [address] [place] [address] Dr. Benjamin Clement MCV (RBC) [Entitic vol] 85.4 fL Normal 80.0-94.0 [facility] Comment on above: Performed By: #### C BC #### [facility] [address] [place] [address] Dr. Benjamin Clement MONO # 0.6 103/ul Normal 0.3-0.8 [facility] Comment on above: Performed By: #### C BC #### [facility] [address] [place] [address] Dr. Benjamin Clement Monocytes/100 WBC (Bld) 8.6 % Normal 1.7-12.0 [facility] Comment on above: Performed By: #### C BC #### [facility] [address] [place] [address] Dr. Benjamin Clement NEUT # 3.9 103/ul Normal 1.4-6.5 [facility] Comment on above: Performed By: #### C BC #### [facility] [address] [place] [address] Dr. Benjamin Clement Neutrophils/100 WBC (Bld) 59.9 % Normal 43.0-75.0 [facility] Comment on above: Performed By: #### C BC #### [facility] [address] [place] [address] Dr. Benjamin Clement Platelet mean volume (Bld) [Entitic vol] 10.2 fL Normal 9.5-13.5 [facility] Comment on above: Performed By: #### C BC #### [facility] [address] [place] [address] Dr. Benjamin Clement PLT 205 103/ul Normal 150-450 [facility] Comment on above: Performed By: #### C BC #### [facility] [address] [place] [address] Dr. Benjamin Clement RBC 5.15 106/ul Normal 4.70-6.10 [facility] Comment on above: Performed By: #### C BC #### [facility] [address] [place] [address] Dr. Benjamin Clement WBC 6.5 103/ul Normal 4.0-11.0 [facility] Comment on above: Performed By: #### C BC #### [facility] [address] [place] [address] Dr. Benjamin Clement GLYCOHEMOGLOBIN A1Con 2021 ADA RECOMMENDATION SEE BELOW Normal [facility] Comment on above: Result Comment: ADA RECOMMENDED LIMIT 4.0 - 6.0 ADA THERAPEUTIC TARGET < 7.0 ACTION SUGGESTED > 7.0 Performed By: #### A 1C #### [facility] [address] [place] [address] Dr. Benjamin Clement Glucose [Mass/Vol] 123 mg/dL Normal [facility] Comment on above: Performed By: #### A 1C #### [facility] [address] [place] [address] Dr. Benjamin Clement HbA1c (Bld) [Mass fraction] 5.9 % Normal 4.5-6.2 [facility] Comment on above: Performed By: #### A 1C #### [facility] [address] [place] [address] Dr. Benjamin Clement LIPID PROFILEon 02-03-2022 CHOL-HDL RATIO NORM SEE BELOW Normal [facility] Comment on above: Result Comment: 3.3 - 4.4 LOW RISK 4.4 - 7.1 AVERAGE RISK 7.1 - 11.0 MODERATE RISK >11.0 HIGH RISK Performed By: #### C MP, LIPID, URIC #### [facility] [address] [address] [address] Benjamin Clement Cholesterol [Mass/Vol] 203 mg/dL Critically high <=200 [facility] Comment on above: Performed By: #### C MP, LIPID, URIC #### [facility] [address] [address] [address] Benjamin Clement Cholesterol in HDL [Mass/Vol] 41 mg/dL Normal 40-60 [facility] Comment on above: Performed By: #### C MP, LIPID, URIC #### [facility] [address] [address] [address] Benjamin Clement Cholesterol in LDL [Mass/Vol] 145.6 mg/dL Normal [facility] Comment on above: Performed By: #### C MP, LIPID, URIC #### [facility] [address] [address] [address] Benjamin Clement Cholesterol.total/Cho lesterol in HDL [Mass ratio] 5.0 {ratio} Normal [facility] Comment on above: Performed By: #### C MP, LIPID, URIC #### [facility] [address] [address] [address] Benjamin Clement HDL NORMAL > or = 60 mg/dl - LOW CARDIOVASCULAR RISK <40 mg/dl - HIGH CARDIOVASCULAR RISK Normal [facility] Comment on above: Performed By: #### C MP, LIPID, URIC #### [facility] [address] [address] [address] Benjamin Clement LDL CALC NORMAL SEE BELOW Normal [facility] Comment on above: Result Comment: <100 mg/dl OPTIMAL 100 - 129 mg/dl NEAR OR ABOVE OPTIMAL 130 - 159 mg/dl BORDERLINE HIGH 160 - 189 mg/dl HIGH >190 mg/dl VERY HIGH Performed By: #### C MP, LIPID, URIC #### [facility] [address] [address] [address] Benjamin Clement Triglyceride [Mass/Vol] 82 mg/dL Normal <=150 [facility] Comment on above: Performed By: #### C MP, LIPID, URIC #### [facility] [address] [address] [address] Benjamin Clement VLDL CALC 16.4 mg/dL Normal [facility] Comment on above: Performed By: #### C MP, LIPID, URIC #### [facility] [address] [place] [address] Dr. Benjamin Clement PROF 14(COMP METB)on 022 Albumin [Mass/Vol] 4.2 g/dL Normal 3.4-5.0 [facility] Comment on above: Performed By: #### C MP, LIPID, URIC #### [facility] [address] [place] [address] Dr. Benjamin Clement Albumin/Globulin [Mass ratio] 1.2 {ratio} Normal [facility] Comment on above: Performed By: #### C MP, LIPID, URIC #### [facility] [address] [place] [address] Dr. Benjamin Clement ALP [Catalytic activity/Vol] 61 U/L Normal 46-116 [facility] Comment on above: Performed By: #### C MP, LIPID, URIC #### [facility] [address] [place] [address] Dr. Benjamin Clement ALT [Catalytic activity/Vol] 49 U/L Normal 16-63 [facility] Comment on above: Performed By: #### C MP, LIPID, URIC #### [facility] [address] [place] [address] Dr. Benjamin Clement Anion gap [Moles/Vol] 12.2 mmol/L Normal [facility] Comment on above: Performed By: #### C MP, LIPID, URIC #### [facility] [address] [place] [address] Dr. Benjamin Clement AST [Catalytic activity/Vol] 26 U/L Normal 15-37 [facility] Comment on above: Performed By: #### C MP, LIPID, URIC #### [facility] [address] [place] [address] Dr. Benjamin Clement Bilirubin [Mass/Vol] 0.5 mg/dL Normal 0.2-1.0 [facility] Comment on above: Performed By: #### C MP, LIPID, URIC #### [facility] [address] [address] [address] Benjamin Clement Calcium [Mass/Vol] 8.9 mg/dL Normal 8.5-10.1 [facility] Comment on above: Performed By: #### C MP, LIPID, URIC #### [facility] [address] [address] [address] Benjamin Clement Chloride [Moles/Vol] 103 mmol/L Normal 98-107 [facility] Comment on above: Performed By: #### C MP, LIPID, URIC #### [facility] [address] [address] [address] Benjamin Clement CO2 [Moles/Vol] 26.9 mmol/L Normal 21.0-32.0 [facility] Comment on above: Performed By: #### C MP, LIPID, URIC #### [facility] [address] [place] [address] Dr. Benjamin Clement Creatinine [Mass/Vol] 0.94 mg/dL Normal 0.70-1.30 [facility] Comment on above: Performed By: #### C MP, LIPID, URIC #### [facility] [address] [place] [address] Dr. Benjamin Clement EGFR-AF IVORIAN >60 Normal >=60 [facility] Comment on above: Performed By: #### C MP, LIPID, URIC #### [facility] [address] [place] [address] Dr. Benjamin Clement EGFR-NON AF IVORIAN >60 Normal >=60 [facility] Comment on above: Performed By: #### C MP, LIPID, URIC #### [facility] [address] [place] [address] Dr. Benjamin Clement Globulin (S) [Mass/Vol] 3.5 g/dL Normal [facility] Comment on above: Performed By: #### C MP, LIPID, URIC #### [facility] [address] [place] [address] Dr. Benjamin Clement Glucose [Mass/Vol] 88 mg/dL Normal 74-106 [facility] Comment on above: Performed By: #### C MP, LIPID, URIC #### [facility] [address] [address] [address] Benjamin Clement Potassium [Moles/Vol] 4.1 mmol/L Normal 3.5-5.1 [facility] Comment on above: Performed By: #### C MP, LIPID, URIC #### [facility] [address] [place] [address] Dr. Benjamin Clement Protein [Mass/Vol] 7.7 g/dL Normal 6.4-8.2 [facility] Comment on above: Performed By: #### C MP, LIPID, URIC #### [facility] [address] [address] [address] Benjamin Clement Sodium [Moles/Vol] 138 mmol/L Normal 136-145 [facility] Comment on above: Performed By: #### C MP, LIPID, URIC #### [facility] [address] [address] [address] Benjamin Clement Urea nitrogen [Mass/Vol] 17.0 mg/dL Normal 7.0-18.0 [facility] Comment on above: Performed By: #### C MP, LIPID, URIC #### [facility] [address] [place] [address] Dr. Benjamin Celment Urea nitrogen/Creatinine [Mass ratio] 18.1 mg/mg Normal [facility] Comment on above: Performed By: #### C MP, LIPID, URIC #### [facility] [address] [place] [address] Dr. Benjamin Clement URIC ACID SERUMon 02-03-2022 Urate [Mass/Vol] 8.6 mg/dL Critically high 3.5-7.2 [facility] Comment on above: Performed By: #### C MP, LIPID, URIC #### [facility] [address] [place] [address] Dr. Benjamin Clement Encounters Encounter Date Encounter Type Care Provider Facility Start: 02-04-2022 Encounter for genera l adult medical examination without abnormal findings DR SHARATH IVORY [facility] Start: 02-03-2022 End: 02-04-[address] SHARATH IVORY Facility:[facility] Start: 02-03-2022 End: 02-04-2022 Encounter for general adult medical examination without abnormal findings DR SAHRATH IVORY Facility:[facility] Procedures Date Procedure Procedure Detail Performing Clinician Start: 02-03-[address] NIKIA IVORY Comment on above: Performed By: #### P [facility] #### [facility] [address] [address] [address] Benjamin Clement Payers Date Payer Category Payer Unknown [id number] 1960 Unknown [id number] Summary Purpose Family History No Family History Records Found Advance Directives No Advanced Directives Records Found Additional Source Comments (unrecognized sect ion and content) No Status Records Found INFORMATION SOURCE (unrecogn ized section and content) DATE CREATED AUTHOR 02/10/2022 [facility] FOR RECORDS PERTAINING TO PATIENTS WHO [...] BE BASED ON THE PRIMARY CLINICAL RECORDS. [facility]. provides no warranty or guarantee of the accuracy or completeness of information in this document.
== END 2024-04-16 09:51 | disposition home or self-care (01) ==
LOC: US 09:50
PROVIDERS: PCP Family Medicine; Visit Provider Family Medicine
DX: R22.32 Localized swelling, mass and lump, left upper limb (principal)
CPT/HCPCS: 76882

== ENCOUNTER 2024-05-02 07:59 | Outpatient (OUT) | payer OTHER, SELFPAY ==
--- NOTE | 2024-05-02 08:04 | CT_ITS ---
[address] [address] Patient Name: ROMERO SCOTT MRN: [id number] date: 1970 Sex: M Assigned Patient Location: CT Current Patient Location: Accession/Order Number: [id number] Exam Date: 05/02/2024 08:10 Report Date: 05/03/2024 05:59 At the request of: CESILIA ROSA Procedure: CT chest wo con EXAMINATION: CT chest wo con HISTORY: Axillary Mass Left R22.32 COMPARISON: Ultrasound left axilla 04/08/2024 TECHNIQUE: Axial, Coronal, and Sagittal images were created without the administration of IV contrast material. Dose reduction techniques were achieved by using automated exposure control and/or adjustment of mA and/or kV according to patient size and/or use of iterative reconstruction technique. FINDINGS: LUNGS: 7 mm thin opacity adjacent the right major fissure and minor fissure junction. No suspicious nodules or acute infiltrates. PLEURA: No mass, effusion, or pneumothorax. VASCULATURE: No abnormality. KRISTINA: No mass or pathologic adenopathy. MEDIASTINUM: No mass or pathologic adenopathy. CARDIAC: No enlargement, pericardial thickening, or pericardial effusion. Coronary Artery calcifications: AORTA: No aneurysm or dissection. CHEST WALL: No mass or axillary adenopathy BONES: No bone lesion or fracture. LIMITED ABDOMEN: Multiple 5 mm stones within gallbladder. Limited images of the upper abdomen. OTHER: Negative. CT/CT chest wo con IMPRESSION: 1. No mass or lymphadenopathy within the left axilla. No suspicious findings. 2. Nonspecific thin 7 mm pulmonary opacity adjacent the right major and minor fissure. If patient is at increased risk for lung cancer consider follow-up CT chest in 1 year. 3. Cholelithiasis. Electronically authenticated by: TAMARA CHIU Date: 05/03/2024 05:59
--- OUTSIDE RECORDS SUMMARY | 2024-05-02 08:11 | XMS_ITS | CCD ---
Author Organization [email or web address] [facility] Care Team Providers Care Return To Factory Clerk Name Role Phone DR SHARATH IVORY Attending Unavailable DR SHARATH IVORY Consulting Unavailable DR SHARATH IVORY Primary Care Unavailable DR SHARATH IVORY Admitting Unavailable Allergies Allergy Classification Reported Allergen(s) Allergy Type Date of Onset Reaction(s) Facility (1 source) Sulfonamides (Antibiotic) Drug allergy (disorder) [facility] Repository Problems Problem Classification Problem Date Documented Da te Episodic/Chronic Other screening for suspected conditions (not mental disorders or infectious disease) (1 source) Encounter for screening for malignant neoplasm of prostate; Translations: [ENC SCREEN MALIG NEOPLASM PROSTATE] Onset: 02-04-2022 Episodic Results Test Name Value Interpretation Reference Range Facil ity INSULINon 02-04-2022 Insulin 9.2 uIU/mL Normal 2.6-24.9 [facility] Comment on above: Performed By: #### I NSULIN #### [facility] [address] [place] [address] Dr. Benjamin Clement CBC AUTO DIFFon 02-03-2022 BASO # 0.1 103/ul Normal 0.0-0.1 [facility] Comment on above: Performed By: #### C BC #### [facility] [address] [place] [address] Dr. Benjamin Clement Basophils/100 WBC (Bld) 0.8 % Normal 0.2-2.0 [facility] Comment on above: Performed By: #### C BC #### [facility] [address] [place] [address] Dr. Benjamin Clement EO # 0.2 103/ul Normal 0.0-0.7 [facility] Comment on above: Performed By: #### C BC #### [facility] [address] [place] [address] Dr. Benjamin Clement Eosinophils/100 WBC (Bld) 3.1 % Normal 0.9-7.0 [facility] Comment on above: Performed By: #### C BC #### [facility] [address] [place] [address] Dr. Benjamin Clement Erythrocyte distribution width (RBC) [Ratio] 13.1 % Normal 11.0-15.0 [facility] Comment on above: Performed By: #### C BC #### [facility] [address] [place] [address] Dr. Benjamin Clement Hematocrit (Bld) [Volume fraction] 44.0 % Normal 42.0-54.0 [facility] Comment on above: Performed By: #### C BC #### [facility] [address] [place] [address] Dr. Benjamin Clement Hemoglobin (Bld) [Mass/Vol] 14.6 g/dL Normal 14.0-18.0 [facility] Comment on above: Performed By: #### C BC #### [facility] [address] [place] [address] Dr. Benjamin Clement IG # 0.03 10e3/ul Normal 0.00-0.03 [facility] Comment on above: Performed By: #### C BC #### [facility] [address] [place] [address] Dr. Benjamin Clement IG % 0.5 % Normal 0.0-0.5 [facility] Comment on above: Performed By: #### C BC #### [facility] [address] [place] [address] Dr. Benjamin Clement LYMPH # 1.8 103/ul Normal 1.2-3.8 [facility] Comment on above: Performed By: #### C BC #### [facility] [address] [place] [address] Dr. Benjamin Clement Lymphocytes/100 WBC (Bld) 27.1 % Normal 20.5-60.0 [facility] Comment on above: Performed By: #### C BC #### [facility] [address] [place] [address] Dr. Benjamin Clement MANUAL DIFF REQ NO Normal [facility] Comment on above: Performed By: #### C BC #### [facility] [address] [place] [address] Dr. Benjamin Clement MCH (RBC) [Entitic mass] 28.3 pg Normal 25.9-34.0 [facility] Comment on above: Performed By: #### C BC #### [facility] [address] [place] [address] Dr. Benjamin Clement MCHC (RBC) [Mass/Vol] 33.2 g/dL Normal 29.9-35.2 [facility] Comment on above: Performed By: #### C BC #### [facility] [address] [place] [address] Dr. Benjamin Clement MCV (RBC) [Entitic vol] 85.4 fL Normal 80.0-94.0 [facility] Comment on above: Performed By: #### C BC #### [facility] [address] [place] [address] Dr. Benjamin Clement MONO # 0.6 103/ul Normal 0.3-0.8 [facility] Comment on above: Performed By: #### C BC #### [facility] [address] [place] [address] Dr. Benjamin Clement Monocytes/100 WBC (Bld) 8.6 % Normal 1.7-12.0 [facility] Comment on above: Performed By: #### C BC #### [facility] [address] [place] [address] Dr. Benjamin Clement NEUT # 3.9 103/ul Normal 1.4-6.5 [facility] Comment on above: Performed By: #### C BC #### [facility] [address] [place] [address] Dr. Benjamin Clement Neutrophils/100 WBC (Bld) 59.9 % Normal 43.0-75.0 [facility] Comment on above: Performed By: #### C BC #### [facility] [address] [place] [address] Dr. Benjamin Clement Platelet mean volume (Bld) [Entitic vol] 10.2 fL Normal 9.5-13.5 [facility] Comment on above: Performed By: #### C BC #### [facility] [address] [place] [address] Dr. Benjamin Clement PLT 205 103/ul Normal 150-450 [facility] Comment on above: Performed By: #### C BC #### [facility] [address] [place] [address] Dr. Benjamin Clement RBC 5.15 106/ul Normal 4.70-6.10 [facility] Comment on above: Performed By: #### C BC #### [facility] [address] [place] [address] Dr. Benjamin Clement WBC 6.5 103/ul Normal 4.0-11.0 [facility] Comment on above: Performed By: #### C BC #### [facility] [address] [place] [address] Dr. Benjamin Clement GLYCOHEMOGLOBIN A1Con 2021 ADA RECOMMENDATION SEE BELOW Normal [facility] Comment on above: Result Comment: ADA RECOMMENDED LIMIT 4.0 - 6.0 ADA THERAPEUTIC TARGET < 7.0 ACTION SUGGESTED > 7.0 Performed By: #### A 1C #### [facility] [address] [place] [address] Dr. Benjamin Clement Glucose [Mass/Vol] 123 mg/dL Normal [facility] Comment on above: Performed By: #### A 1C #### [facility] [address] [place] [address] Dr. Benjamin Clement HbA1c (Bld) [Mass fraction] 5.9 % Normal 4.5-6.2 [facility] Comment on above: Performed By: #### A 1C #### [facility] [address] [place] [address] Dr. Benjamin Clement LIPID PROFILEon 02-03-2022 CHOL-HDL RATIO NORM SEE BELOW Normal [facility] Comment on above: Result Comment: 3.3 - 4.4 LOW RISK 4.4 - 7.1 AVERAGE RISK 7.1 - 11.0 MODERATE RISK >11.0 HIGH RISK Performed By: #### C MP, LIPID, URIC #### [facility] [address] [address] [address] Benjamin Clement Cholesterol [Mass/Vol] 203 mg/dL Critically high <=200 [facility] Comment on above: Performed By: #### C MP, LIPID, URIC #### [facility] [address] [address] [address] Benjamin Clement Cholesterol in HDL [Mass/Vol] 41 mg/dL Normal 40-60 [facility] Comment on above: Performed By: #### C MP, LIPID, URIC #### [facility] [address] [address] [address] Benjamin Clement Cholesterol in LDL [Mass/Vol] 145.6 mg/dL Normal [facility] Comment on above: Performed By: #### C MP, LIPID, URIC #### [facility] [address] [address] [address] Benjamin Clement Cholesterol.total/Cho lesterol in HDL [Mass ratio] 5.0 {ratio} Normal [facility] Comment on above: Performed By: #### C MP, LIPID, URIC #### [facility] [address] [address] [address] Benjamin Clement HDL NORMAL > or = 60 mg/dl - LOW CARDIOVASCULAR RISK <40 mg/dl - HIGH CARDIOVASCULAR RISK Normal [facility] Comment on above: Performed By: #### C MP, LIPID, URIC #### [facility] [address] [address] [address] Benjamin Clement LDL CALC NORMAL SEE BELOW Normal [facility] Comment on above: Result Comment: <100 mg/dl OPTIMAL 100 - 129 mg/dl NEAR OR ABOVE OPTIMAL 130 - 159 mg/dl BORDERLINE HIGH 160 - 189 mg/dl HIGH >190 mg/dl VERY HIGH Performed By: #### C MP, LIPID, URIC #### [facility] [address] [address] [address] Benjamin Clement Triglyceride [Mass/Vol] 82 mg/dL Normal <=150 [facility] Comment on above: Performed By: #### C MP, LIPID, URIC #### [facility] [address] [address] [address] Benjamin Clement VLDL CALC 16.4 mg/dL Normal [facility] Comment on above: Performed By: #### C MP, LIPID, URIC #### [facility] [address] [place] [address] Dr. Benjamin Clement PROF 14(COMP METB)on 022 Albumin [Mass/Vol] 4.2 g/dL Normal 3.4-5.0 [facility] Comment on above: Performed By: #### C MP, LIPID, URIC #### [facility] [address] [place] [address] Dr. Benjamin Clement Albumin/Globulin [Mass ratio] 1.2 {ratio} Normal [facility] Comment on above: Performed By: #### C MP, LIPID, URIC #### [facility] [address] [place] [address] Dr. Benjamin Clement ALP [Catalytic activity/Vol] 61 U/L Normal 46-116 [facility] Comment on above: Performed By: #### C MP, LIPID, URIC #### [facility] [address] [place] [address] Dr. Benjamin Clement ALT [Catalytic activity/Vol] 49 U/L Normal 16-63 [facility] Comment on above: Performed By: #### C MP, LIPID, URIC #### [facility] [address] [place] [address] Dr. Benjamin Clement Anion gap [Moles/Vol] 12.2 mmol/L Normal [facility] Comment on above: Performed By: #### C MP, LIPID, URIC #### [facility] [address] [place] [address] Dr. Benjamin Clement AST [Catalytic activity/Vol] 26 U/L Normal 15-37 [facility] Comment on above: Performed By: #### C MP, LIPID, URIC #### [facility] [address] [place] [address] Dr. Benjamin Clement Bilirubin [Mass/Vol] 0.5 mg/dL Normal 0.2-1.0 [facility] Comment on above: Performed By: #### C MP, LIPID, URIC #### [facility] [address] [address] [address] Benjamin Clement Calcium [Mass/Vol] 8.9 mg/dL Normal 8.5-10.1 [facility] Comment on above: Performed By: #### C MP, LIPID, URIC #### [facility] [address] [address] [address] Benjamin Clement Chloride [Moles/Vol] 103 mmol/L Normal 98-107 [facility] Comment on above: Performed By: #### C MP, LIPID, URIC #### [facility] [address] [address] [address] Benjamin Clement CO2 [Moles/Vol] 26.9 mmol/L Normal 21.0-32.0 [facility] Comment on above: Performed By: #### C MP, LIPID, URIC #### [facility] [address] [place] [address] Dr. Benjamin Clement Creatinine [Mass/Vol] 0.94 mg/dL Normal 0.70-1.30 [facility] Comment on above: Performed By: #### C MP, LIPID, URIC #### [facility] [address] [place] [address] Dr. Benjamin Clement EGFR-AF PUERTO RICAN >60 Normal >=60 [facility] Comment on above: Performed By: #### C MP, LIPID, URIC #### [facility] [address] [place] [address] Dr. Benjamin Clement EGFR-NON AF PUERTO RICAN >60 Normal >=60 [facility] Comment on above: Performed By: #### C MP, LIPID, URIC #### [facility] [address] [place] [address] Dr. Benjamin Clement Globulin (S) [Mass/Vol] 3.5 g/dL Normal [facility] Comment on above: Performed By: #### C MP, LIPID, URIC #### [facility] [address] [place] [address] Dr. Benjamin Clement Glucose [Mass/Vol] 88 mg/dL Normal 74-106 [facility] Comment on above: Performed By: #### C MP, LIPID, URIC #### [facility] [address] [address] [address] Benjamin Clement Potassium [Moles/Vol] 4.1 mmol/L Normal 3.5-5.1 [facility] Comment on above: Performed By: #### C MP, LIPID, URIC #### [facility] [address] [place] [address] Dr. Benjamin Clement Protein [Mass/Vol] 7.7 g/dL Normal 6.4-8.2 [facility] Comment on above: Performed By: #### C MP, LIPID, URIC #### [facility] [address] [address] [address] Benjamin Clement Sodium [Moles/Vol] 138 mmol/L Normal 136-145 [facility] Comment on above: Performed By: #### C MP, LIPID, URIC #### [facility] [address] [address] [address] Benjamin Clement Urea nitrogen [Mass/Vol] 17.0 mg/dL Normal 7.0-18.0 [facility] Comment on above: Performed By: #### C MP, LIPID, URIC #### [facility] [address] [place] [address] Dr. Benjamin Clement Urea nitrogen/Creatinine [Mass ratio] 18.1 mg/mg Normal [facility] Comment on above: Performed By: #### C MP, LIPID, URIC #### [facility] [address] [place] [address] Dr. Benjamin Clement URIC ACID SERUMon 02-03-2022 Urate [Mass/Vol] 8.6 mg/dL Critically high 3.5-7.2 [facility] Comment on above: Performed By: #### C MP, LIPID, URIC #### [facility] [address] [place] [address] Dr. Benjamin Clement Encounters Encounter Date Encounter Type Care Provider Facility Start: 02-04-2022 Encounter for genera l adult medical examination without abnormal findings DR SHARATH IVORY [facility] Start: 02-03-2022 End: 02-04-[address] SHARATH IVORY Facility:[facility] Start: 02-03-2022 End: 02-04-2022 Encounter for general adult medical examination without abnormal findings DR SHARATH IVORY Facility:[facility] Procedures Date Procedure Procedure Detail Performing Clinician Start: 02-03-[address] NIKIA IVORY Comment on above: Performed By: #### P [facility] #### [facility] [address] [address] [address] Benjamin Clement Payers Date Payer Category Payer Unknown [id number] 1960 Unknown [id number] Summary Purpose Family History No Family History Records Found Advance Directives No Advanced Directives Records Found Additional Source Comments (unrecognized sect ion and content) No Status Records Found INFORMATION SOURCE (unrecogn ized section and content) DATE CREATED AUTHOR 02/10/2022 [facility] FOR RECORDS PERTAINING TO PATIENTS WHO [...] BE BASED ON THE PRIMARY CLINICAL RECORDS. [facility] [employer] [facility]. provides no warranty or guarantee of the accuracy or completeness of information in this document.
== END 2024-05-02 08:00 | disposition home or self-care (01) ==
LOC: CT 07:59
PROVIDERS: PCP Family Medicine; Visit Provider Nurse Practitioner Family
DX: R22.32 Localized swelling, mass and lump, left upper limb (principal)
CPT/HCPCS: 71250

== ENCOUNTER 2024-11-22 07:49 | Outpatient (OUT) | payer OTHER, SELFPAY ==
--- OUTSIDE RECORDS SUMMARY | 2024-04-16 18:06 | XMS_ITS ---
Author Organization [facility] in [place] Address [address] [place] [address] Care Team Providers [employer] Person Name Role Phone Eron Mujica Primary Care Provider [phone] Chana Garcia Unavailable [phone] REASON FOR VISIT us left Encounters Encounter Location Date Provider Diagnosis [address] [place] [address] 04/16/2024 Chana Bui Axillary mass, left R22.32 Assessments Encounter Date Diagnosis (ICD Code) Assessment Notes Treatment Notes Treatment Clinical Notes Section Notes 04/16/2024 Axillary mass, left (ICD-10 - R22.32) Plan Of Treatment Pending Test Test Name Order Date CT CHEST WO CON 04/16/2024 Progress Notes * Molina SCOTT EDOB:1970 (54 yo M)Acc No.[id number]:04/16/2024 Patient: Viky ROMANMolina MATOS :1970 A ge:54 Y S ex:Male Address:[facility] [place] [address] Subjective: * Chief Complaints: * U s left * Medical History: * Surgical History: * Hospitalization/Major Diagno stic Procedure: * Medications: Objective: * Vitals: * Physical Examination: Assessment: * Assessment: 1. A xillary mass, left - R22.32 (Primary) Plan: * Treatment: * Procedure Codes: * true * Date: Generated for Printi ng/Faxing/eTransmitting on: 0 11/22/2024 07:53 AM EDT
--- OUTSIDE RECORDS SUMMARY | 2024-05-06 10:25 | XMS_ITS ---
Author Organization [facility] [place] Address [address] [place] [address] Care Team Providers Care Transportation Job Titles Name Role Phone Eron Mujica Primary Care Provider REASON FOR VISIT Results Encounters Encounter Location Date Provider Diagnosis [facility] [address] [facility] [place] [address] 05/06/2024 Eron Mujica Plan Of Treatment No Information Progress Notes * Molina SCOTT EDOB:1970 (54 yo M)Acc No.[id number]:05/06/2024 Patient: Viky MAURERMolina :1970 A ge:54 Y S ex:Male [address] [place] [address] * true * Date: Generated for [place]/Dre/eTransmitting on: 0 11/22/2024 07:53 AM EDT
--- OUTSIDE RECORDS SUMMARY | 2024-10-30 06:00 | XMS_ITS ---
Author Organization [facility] in [place] Address [address] [place] [address] Care Team Providers Care Personal Care Attendant Name Role Phone Eron Mujica Primary Care Provider Allergies Allergen (clinical drug ingredient) Drug/Non Drug Allergy documented on EMR Reaction Allergy Type Onset Date Status sulfamethoxazole / trimethoprim Bactrim rash Drug Allergy Active REASON FOR VISIT Tuesday right lower leg and ankle flared up- getting better- but has been on going- saw Dr Mary regarding it- now wants to investigate if circulation issue Medications Medication SIG (Take, Route, Fr equency, Duration) Notes Start Date End Date Status Allopurinol 100 MG 1 tablet Orally Once a day for 30 days 02/14/2024 Active Sarahi Allergy 180 MG 1 tablet Swallow whole with water; do not take with fruit juices. Orally Once a day Active Lisinopril 10 MG 1 tablet Orally Once a day for 30 days 02/13/2024 Active Meloxicam 15 MG 1 tablet Orally Once a day for 30 days Active Probiotic - as directed Orally Active Social History Tobacco Use: Social History Observation Description Date Details (start date - stop date) Never Smoker NA - NA Tobacco Use/Smoking Question Answer Notes Patient is a nonsmoker AUDIT-C (Standard) Question Answer Notes Did you have a drink contain ing alcohol in the past year? Yes How often did you have a dri nk containing alcohol in the past year? Never (0 point) How many drinks did you have on a typical day when you were drinking in the past year? 1 or 2 drinks (0 point) How often did you have six o r more drinks on one occasion in the past year? Less than monthly (1 point) Points 1 Interpretation Negative Problems Problem Type SNOMED Code ICD Code Onset Dates Problem Status W/U Status Risk Notes Problem Pain in limb (58608819) Leg pain, anterior, right (M79.604) Active confirmed Vital Signs Blood pressure systolic 132 mm Hg 10/31/19 25 Blood pressure diastolic 84 mm Hg 025 Height 70 in 10/30/2024 Weight 233.0 lbs 10/30/2024 BMI 33.43 kg/m2 10/30/2024 Procedures Procedure Date Ordered Date Performed Result Body Sit e MEAGHAN Segmental Pressure Study of Lower Extremity 10/30/2024 N/A Encounters Encounter Location Date Provider Diagnosis [facility] [address] [place] [address] 10/30/2024 Eron Homarjorie Leg pain, anterior, right M79.604 Assessments Encounter Date Diagnosis (ICD Code) Assessment Notes Treatment Notes Treatment Clinical Notes Section Notes 10/30/2024 Leg pain, anterior, right (ICD-10 - M79.604) Plan Of Treatment Medication Medication Name Sig Start Date Stop Date Notes Meloxicam 15 MG 1 tablet Orally Once a day for 30 days Pending Test Test Name Order Date VC VENOUS REFLUX CHIOMA LMT 10/30/2024 MEAGHAN Segmental Pressure Study of Lower Ex tremity 10/30/2024 Progress Notes * Molina SCOTT EDOB:1970 (54 yo M)Acc No.[id number]:10/30/2024 Progress Note Patient: Molina TAMEZ Provider: Dawna Mujica ([facility])MD :1970 A ge:54 Y S ex:Male Date:10/30/2024 Address:[facility] [place], [id number] Check In:09:56 AM ESTCheck O ut:10:53 AM EST Subjective: * Chief Complaints: * S unday right lower leg and ankle flared up- getting better- but has been on going- saw Dr Mary regarding it- now wants to investigate if circulation issue * HPI: D epression Screening: PHQ-2 (2015 Edition) L ittle interest or pleasure in doing things??Not at all F eeling down, depressed, or hopeless? N ot at all T otal Score 0 R leg and ankle - has seen Dr Mary for the ankle - did some more activity - much worse at the end of the day had soem edema then some pain with ambulation - some achilles pain. 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 M other: alive. B rother(s): alive. S on(s): alive. D groverer(s): alive. 2 brother(s) - healthy. 1 son(s) , 1 daughter(s) - healthy. . * Social History: T obacco Use: T obacco Use/Smoking P atient is a n onsmoker D rug/Alcohol: A NOEL-C (Standard) D id you have a drink containing alcohol in the past year? Y es H ow often did you have a drink containing alcohol in the past year? N ever (0 point) H ow many drinks did you have on a typical day when you were drinking in the past year? 1 or 2 drinks (0 point) H ow often did you have six or more drinks on one occasion in the past year? L ess than monthly (1 point) P oints 1 I nterpretation N egative * Medications: T akingAllegra Allergy(Fexofenadine HCl) 180 MG Tablet 1 tablet Swallow whole with water; do not take with fruit juices. Orally Once a day Allopurinol 100 MG Tablet 1 tablet Orally Once a day Lisinopril 10 MG Tablet 1 tablet Orally Once a day Meloxicam 15 MG Tablet 1 tablet Orally Once a day Probiotic - Tablet Delayed Release as directed Orally Medication List reviewed and reconciled with the patientTaking Sarahi Allergy(Fexofenadine HCl) 180 MG Tablet 1 tablet Swallow whole with water; do not take with fruit juices. Orally Once a day Taking Allopurinol 100 MG Tablet 1 tablet Orally Once a day Taking Lisinopril 10 MG Tablet 1 tablet Orally Once a day Taking Meloxicam 15 MG Tablet 1 tablet Orally Once a day Taking Probiotic - Tablet Delayed Release as directed Orally Medication List reviewed and reconciled with the patient * Allergies: B actrim: ueyn[Allergies Verified] Objective: * Vitals: W t:233.0lbs, Ht: 70 in, BP:132/84mm Hg, BMI:33.43Index, Ht-cm: 177.8 cm, Wt-k.69 kg. * Physical Examination: S ome edema in legs pitting - neg homans - dimins DP pulses. Assessment: * Assessment: 1. L eg pain, anterior, right - M79.604 (Primary) Plan: * Treatment: * Procedure Codes: * Preventive Medicine: Screenings/Counseling: B VT ACTION PLAN Above Normal BMI Follow-up D ietary management education, guidance, and counseling * * Sign off status: Completed Visit Status: C HK (Check Out) true * Provider: Dawna Mujica ([facility])MD Date: 0 10/30/2024 Generated for Anithai padmini/Dre/eTransmitting on: 0 11/22/2024 07:53 AM EDT History and Physical Notes * HPI (History of Present Illness) Category Sub-Category Detail Notes Category Not es Depression Screening PHQ-2 (2015 Edition) Little interest or pleasure in doing things?: Not at all R leg and ankle - has seen Dr Mary for the ankle - did some more activity - much worse at the end of the day had soem edema then some pain with ambulation - some achilles pain Feeling down, depressed, or hopeless?: N ot at all Total Score: 0 Physical Examination Category Sub-Category Detail Notes Section Note s Some edema in l egs pitting - neg homans - dimins DP pulses
--- OUTSIDE RECORDS SUMMARY | 2024-11-22 07:53 | XMS_ITS | Clinical Summary ---
Author Organization [facility] Address [address] [place] [address] Care Team Providers Care Care Assistant Name Role Phone Unavailable Primary Care Provider Unavailabl e Social History Tobacco Use Types Packs/Day Years Used Date Smoking Tobacco: Never Assessed Sex and Gender Information Value Date Recorded Sex Assigned at Not on file Legal Sex Male 6:44 PM EDT Gender Identity Not on file Sexual Orientation Not on file Last Filed Vital Signs Vital Sign Reading Time Taken Comments Blood Pressure 137/85 07/24/2019 12:00 PM EST Pulse - - Temperature - - Respiratory Rate - - Oxygen Saturation - - Inhaled Oxygen Concentration - - Weight - - Height - - Body Mass Index - - Plan of Treatment Not on file Insurance [employer]
--- OUTSIDE RECORDS SUMMARY | 2024-11-22 07:53 | XMS_ITS | Patient Health Record ---
Author Organization [facility] in [place] Address [address] [place] [address] Care Team Providers Care Stereo Plotter Operator Name Role Phone Guanako Eron Primary Care Provider Chana Bui [phone] Allergies Allergen (clinical drug ingredient) Drug/Non Drug Allergy documented on EMR Reaction Allergy Type Onset Date Status sulfamethoxazole / trimethoprim Bactrim rash Drug Allergy Active Results Component Value Reference Range Notes CBC AUTO DIFF Reviewed date:02/13/2024 06:43:21 PM Interpretation: Performing Lab: Notes/Report: [facility] , White Blood Count 6.8 4.0-11.0 10 3/uL Red Blood Count 5.21 4.70-6.10 10 6/uL Hemoglobin 14.8 14.0-18.0 g/dL Hematocrit 45.0 42.0-54.0 % Mean Corpuscular Volume 86.4 80.0-94.0 fL Mean Corpuscular Hemoglobin 28.4 25.9-34.0 pg Mean Corpuscular HGB Conc 32.9 29.9-35.2 g/dL Red Cell Distribution Width 13.4 11.0-15.0 % Platelet Count 198 150-450 10 3/uL Mean Platelet Volume 10.4 9.5-13.5 fL Neutrophils Percent Auto 56.2 43.0-75.0 % Lymphocytes Percent Auto 27.0 20.5-60.0 % Monocytes Percent Auto 9.3 1.7-12.0 % Eosinophils Percent Auto 5.9 0.9-7.0 % Basophils Percent Auto 1.3 0.2-2.0 % Immature Granulocytes Pct Auto 0.3 0.0-0.5 % Neutrophils Absolute Auto 3.8 1.4-6.5 10 3/uL Lymphocytes Absolute Auto 1.8 1.2-3.8 10 3/uL Monocytes Absolute Auto 0.6 0.3-0.8 10 3/uL Eosinophils Absolute Auto 0.4 0.0-0.7 10 3/uL Basophils Absolute Auto 0.1 0.0-0.1 10 3/uL Immature Granulocytes Abs Auto 0.02 0.00-0.03 10 3/uL Performing Lab: see note ML - [facility] FREE T3 Reviewed date:02/13/2024 06:43:21 PM Interpretation: Performing Lab: Notes/Report: [facility] , Free T3 2.62 2.18-3.98 pg/mL Performing Lab: see note ML - [facility] LB LIPID PROFILE Reviewed date:02/13/2024 06:43:21 PM Interpretation: Performing Lab: Notes/Report: [facility] , Triglycerides 93 <=150 mg/dL Cholesterol 199 <=200 mg/dL HDL Cholesterol 44 40-60 mg/dL <40 mg/dl - HIGH CARDIOVASCULAR RISK > or =60 mg/dl - LOW CARDIOVASCULAR RISK LDL Cholesterol Calculated 136.4 100-129 mg/dl NEAR OR ABOVE OPTIMAL >190 mg/dl VERY HIGH <100 mg/dl OPTIMAL 130-159 mg/dl BORDERLINE HIGH 160-189 mg/dl HIGH VLDL CHOLESTEROL 18.6 Chol HDL Ratio 4.5 4.4 - 7.1 AVERAGE RISK 3.3 - 4.4 LOW RISK 7.1 - 11.0 MODERATE RISK >11.0 HIGH RISK Performing Lab: see note ML - [facility] PROF 14(COMP METB) Reviewed date:02/13/2024 06:43:21 PM Interpretation: Performing Lab: Notes/Report: [facility] , Sodium 141 136-145 mmol/L Potassium 4.1 3.5-5.1 mmol/L Chloride 104 98-107 mmol/L Carbon Dioxide 26.5 21.0-32.0 mmol/L Anion Gap 14.6 Glucose 94 74-106 mg/dL Blood Urea Nitrogen 12.0 7.0-18.0 mg/dL Creatinine 0.98 0.70-1.30 mg/dL Estimated GFR ( Sheree >60 >=60 Estimated GFR (Non- Doris >60 >=60 BUN Creatinine Ratio 12.2 Calcium 9.2 8.5-10.1 mg/dL Bilirubin Total 0.7 0.2-1.0 mg/dL Aspartate Amino Transferase 28 15-37 U/L Alanine Aminotransferase 52 16-63 U/L Alkaline Phosphatase 61 46-116 U/L Total Protein 7.2 6.4-8.2 g/dL Albumin Level 3.8 3.4-5.0 g/dL Globulin 3.4 Albumin Globulin Ratio 1.1 Performing Lab: see note ML - [facility] LB T4 Reviewed date:02/13/2024 06:43:21 PM Interpretation: Performing Lab: Notes/Report: [facility] , T4 Thyroxine 6.90 4.50-12.10 ug/dL Performing Lab: see note ML - [facility] LB TSH Reviewed date:02/13/2024 06:43:21 PM Interpretation: Performing Lab: Notes/Report: [facility] , Thyroid Stimulating Hormone 1.381 0.358-3.740 uIU/mL Performing Lab: see note ML - [facility] LB URIC ACID SERUM Reviewed date:02/13/2024 06:43:21 PM Interpretation: Performing Lab: Notes/Report: [facility] , Uric Acid 8.3 3.5-7.2 mg/dL Performing Lab: see note ML - [facility] LB CT chest wo con Reviewed date:05/06/2024 02:27:21 PM Interpretation: Performing Lab: Notes/Report: Source Facility: [place] [address] CT Scan Report Signed Patient: ROMERO SCOTT MR#: [id number] : 1970 Acct:[id number] Age/Sex: 54 / M ADM Date: 05/02/24 Loc: CT Attending Dr: CHANA BUI Ordering Physician: CHANA BUI Date of Service: 05/02/24 Procedure(s): CT chest wo con Accession Number(s): [id number] cc: Sharath Ivory M.D. [place] [address] Patient Name: ROMERO SCOTT MRN: [id number] date: 1970 Sex: M Assigned Patient Location: CT Current Patient Location: Accession/Order Number: [id number] Exam Date: 05/02/2024 08:10 Report Date: 05/03/2024 05:59 At the request of: CHANA BUI Procedure: CT chest wo con EXAMINATION: CT chest wo con HISTORY: Axillary Mass Left R22.32 COMPARISON: Ultrasound left axilla 04/08/2024 TECHNIQUE: Axial, Coronal, and Sagittal images were created without the administration of IV contrast material. Dose reduction techniques were achieved by using automated exposure control and/or adjustment of mA and/or kV according to patient size and/or use of iterative reconstruction technique. FINDINGS: LUNGS: 7 mm thin opacity adjacent the right major fissure and minor fissure junction. No suspicious nodules or acute infiltrates. PLEURA: No mass, effusion, or pneumothorax. VASCULATURE: No abnormality. KRISTINA: No mass or pathologic adenopathy. MEDIASTINUM: No mass or pathologic adenopathy. CARDIAC: No enlargement, pericardial thickening, or pericardial effusion. Coronary Artery calcifications: AORTA: No aneurysm or dissection. CHEST WALL: No mass or axillary adenopathy BONES: No bone lesion or fracture. LIMITED ABDOMEN: Multiple 5 mm stones within gallbladder. Limited images of the upper abdomen. OTHER: Negative. CT/CT chest wo con IMPRESSION: 1. No mass or lymphadenopathy within the left axilla. No suspicious findings. 2. Nonspecific thin 7 mm pulmonary opacity adjacent the right major and minor fissure. If patient is at increased risk for lung cancer consider follow-up CT chest in 1 year. 3. Cholelithiasis. Electronically authenticated by: BORIS YUSUF Date: 05/03/2024 05:59 Dictated By: Boris Yusuf M.D. Signed By: 05/03/24 0601 DD/ 0559 TD/TT: [employer]: The [address] [address] [address] Scan Report Signed Patient: ROMERO SCOTT MR#: [id number] : 1970 Acct:[id number] Age/Sex: 54 / M ADM Date: 05/02/24 Loc: CT Attending Dr: CHANA BUI Ordering Physician: CHANA BUI Date of Service: 05/02/24 Procedure(s): CT [facility] [facility] wo con Accession Number(s): [id number] cc: Sharath Ivory M.D. [place] [address] Patient Name: ROMERO SCOTT MRN: [facility]:[id number] date: 1970 Sex: M Assigned Patient Location: CT Current Patient Location: Accession/Order Numb er: [id number] Exam Date: 08:10 Report Date: 05/03/2024 05:59 At the request of: CHANA BUI Procedure: CT chest wo con EXAMINATION: CT ches t wo con HISTORY: Axillary Ma ss Left R22.32 COMPARISON: Ultrasou nd left axilla 04/08/2024 TECHNIQUE: Axial, Coronal, and Sagittal images were created without the administration of IV contrast material. Dose reduction techniques were achieved by using automated exposure control and/or adjustment of mA and/or kV according to patient size and/ or use of iterative reconstruction technique. FINDINGS: LUNGS: 7 mm thin opacity adjacent the right major fissure and minor fissure junction. No suspici ous nodules or acute infiltrates. PLEURA: No mass, effusion, or pneumothorax. VASCULATURE: No abnormality. KRISTINA: No mass or pathologic adenopathy. MEDIASTINUM: No mass or pathologic adenopathy. CARDIAC: No enlargement, pericardial thickening, or pericardial effusion. Coronary Artery calcifications: AORTA: No aneurysm o r dissection. CHEST WALL: No mass or axillary adenopathy BONES: No bone lesio n or fracture. LIMITED ABDOMEN: Multiple 5 mm stones within gallbladder. Limited images of the upper abdomen. OTHER: Negative. CT/CT chest wo con IMPRESSION: 1. No mass or lymphadenopathy within the left axilla. No suspicious findings. 2. Nonspecific thin 7 mm pulmonary opacity adjacent the right major and minor fissure. If patient is at increased risk for lung cancer consider follow-up CT chest in 1 year. 3. Cholelithiasis. Electronically authenticated by: BORIS YUSUF Date: 05/03/2024 05:59 Dictated By: Boris Yusuf M.D. Signed By: 05/03/24 0601 DD/ 0559 TD/TT: [employer]: US extremity nonvascular LT Reviewed date:04/16/2024 10:07:44 PM Interpretation: Performing Lab: Notes/Report: Source Facility: [place] [address] [place] [address] Ultrasound Report Signed Patient: ROMERO SCOTT MR#: [id number] : 1970 Acct:[id number] Age/Sex: 54 / M ADM Date: 04/16/24 Loc: US Attending Dr: Sharath Ivory M.D. Ordering Physician: Sharath Ivory M.D. Date of Service: 04/16/24 Procedure(s): US extremity nonvascular LT Accession Number(s): [id number] cc: Sharath Ivory M.D. The [place] [address] Patient Name: ROMERO SCOTT MRN: [id number] date: 1970 Sex: M Assigned Patient Location: Current Patient Location: Accession/Order Number: [id number] Exam Date: 04/16/2024 09:58 Report Date: 04/16/2024 15:15 At the request of: SHARATH IVORY Procedure: US extremity nonvascular LT EXAM: US extremity nonvascular LT HISTORY: Axillary Mass Left R22.32 COMPARISON: None. TECHNIQUE: Guzman scale and color Doppler imaging was used to evaluate the area of interest. FINDINGS: No focal abnormality is seen at the area of interest within the left axillary region. No focal mass. No lipoma. No lymphadenopathy. US/US extremity nonvascular LT IMPRESSION: No abnormality noted at the area of interest. Electronically authenticated by: Finn GRIDER Date: 04/16/2024 15:15 Dictated By: Finn Grider M.D. Signed By: 04/16/24 1518 DD/ 1515 TD/TT: [employer]: The [address] [address] Ultrasound Report Signed Patient: ROMERO SCOTT MR#: [id number] : 1970 Acct:[id number] Age/Sex: 54 / M ADM Date: 04/16/24 Loc: US Attending Dr: Sherman Ivory M.D. Ordering Physician: Sharath Ivory M.D. Date of Service: 04/16/24 Procedure(s): US extremity nonvascular LT Accession Number(s): [id number] cc: Sharath Ivory M.D. [address] [address] Patient Name: ROMERO SCOTT MRN: [id number] date: 1970 Sex: M Assigned Patient Location: US Current Patient Location: US Accession/Order Numb er: [id number] Exam Date: 09:58 Report Date: 04/16/2024 15:15 At the request of: SHARATH IVORY Procedure: US extrem ity nonvascular LT EXAM: US extremity nonvascular LT HISTORY: Axillary Ma ss Left R22.32 COMPARISON: None. TECHNIQUE: Guzman scal e and color Doppler imaging was used to evaluate the area of interest. FINDINGS: No focal abnormality is seen at the area of interest within the left axillary region. No focal mass. No lipoma. No lymphadenopathy. US/US extremity nonvascular LT IMPRESSION: No abnormality noted at the area of interest. Electronically authenticated by: Finn GRIDER Date: 04/16/2024 15:15 Dictated By: Finn Grider M.D. Signed By: 04/16/24 1518 DD/ 1515 TD/TT: [employer] Teacher: PSA SCREENING Reviewed date:02/13/2024 06:43:21 PM Interpretation: Performing Lab: Notes/Report: [facility] , Prostate Specific Antigen Scrn 0.90 <=4.00 ng/mL Performing Lab: see note ML - [facility] LB INSULIN Reviewed date:02/14/2024 04:14:43 PM Interpretation: Performing Lab: Notes/Report: [facility] , Insulin 24.2 2.6-24.9 uIU/mL Performed at: - [facility] [address] [id number] Weave Defect Charting Clerk: Colten Herbert PhD, Phone: [phone] Performing Lab: see note - [facility] LB GLYCOHEMOGLOBIN A1C Reviewed date:02/13/2024 06:43:21 PM Interpretation: Performing Lab: Notes/Report: [facility] , Glycohemoglobin A1C 5.6 4.5-6.2 % > 7.0 ADA RECOMMENDED LIMIT 4.0 - 6.0 ADA THERAPEUTIC TARGET < 7.0 ACTION SUGGESTED Estimated Average Glucose 114 Performing Lab: see note ML - [facility] Reason For Referral No Information Medications Medication SIG (Take, Route, Fr equency, [...] Active Probiotic - as directed Orally Active Immunizations Vaccine Route Administration Date Status Comme nts Flu, Fluad (00464) 65 yrs and older, single-dose syringe IM Intramuscular 04/12/2024 Administered Flu, Flucelvax (6069-9731) (19125) 6 mos and older, multi-dose vial IM Intramuscular 03/14/2023 Administered Social History Tobacco Use: Social History Observation Description Date Details (start date - stop date) Never Smoker NA - NA Tobacco Use/Smoking Question Answer Notes Patient is a nonsmoker Alcohol Screen (Audit-C) Question Answer Notes Did you have a drink containing alcohol in the p ast year? 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) Active confirmed Problem 6094545853266339 Primary osteoarthriti s, right ankle and foot (M19.071) Active confirmed Problem 174821689269289 Contracture, right ankle (M24.571) Active confirmed Problem 042211931 Other specified disorders of synovium and tendon, other site (M67.88) Active confirmed Problem 11802266006151328 Strain of right Achilles tendon, initial encounter (S86.011A) Active confirmed Problem Gout (08060040) Gout (M10.9) Active confirmed Problem Ankle pain (545645419) Ankle pain (M25.579) Active confirmed Problem Well adult (574948435) Well adult (Z00.00) Active confirmed Problem Seasonal allergic rhinitis (778364582) Seasonal allergic rhinitis (J30.2) Active confirmed Problem Mass of left axillar y region (finding) (611332655964737087) Axillary mass, left (R22.32) Active confirmed Problem Pain in limb (86472379) Leg pain, anterior, right (M79.604) Active confirmed Vital Signs Blood pressure diastolic 84 mm Hg 10/30/2024 Height 70 in 10/30/2024 Blood pressure systolic 132 mm Hg 10/30/2024 Weight 233.0 lbs 10/30/2024 BMI 33.43 kg/m2 10/30/2024 Procedures Procedure Date Ordered Date Performed Result Body Sit e MEAGHAN Segmental Pressure Study of Lower Extremity 10/30/2024 N/A Encounters Encounter Location Date Provider Diagnosis [facility] [address] [place] [address] 02/13/2024 Eron Ivory [facility] [address] [place] [address] 02/23/2024 Eron Ivory Well adult Z00.00 [facility] [address] [place] [address] 04/16/2024 Chana Ramya Axillary mass, left R22.32 [facility] [address] [place] [address] 05/06/2024 Eron Hoy [facility] [address] [place] [address] 04/12/2024 Eorn Hoy Axillary mass, left R22.32 and Encounter for immunization Z23 [facility] [address] [place] [address] 02/13/2024 Eron Hoy Well adult Z00.00 [facility] [address] [place] [address] 10/30/2024 Eron Hoy Leg pain, anterior, right M79.604 Assessments Encounter Date Diagnosis (ICD Code) Assessment Notes Treatment Notes Treatment Clinical Notes Section Notes 02/13/2024 Well adult (ICD-10 - Z00.00) 04/12/2024 Axillary mass, left (ICD-10 - R22.32) needs u/s - likely ct if that is neg of the chest 10/30/2024 Leg pain, anterior, right (ICD-10 - M79.604) 02/23/2024 Well adult (ICD-10 - Z00.00) 04/16/2024 Axillary mass, left (ICD-10 - R22.32) 04/12/2024 Encounter for immunization (ICD-10 - Z23) Plan Of Treatment Pending Test Test Name Order Date CMP (COMPLETE METABOLIC PANEL) 3 CMP (COMPLETE METABOLIC PANEL) 4 HEMOGLOBIN A1C (GLYCO) 03/14/2023 HEMOGLOBIN A1C (GLYCO) 02/13/2024 INSULIN, TOTAL 02/13/2024 INSULIN, TOTAL 03/14/2023 LIPID PANEL (CHOL/TRIG/HDL/LDL) 03/14/20 23 LIPID PANEL (CHOL/TRIG/HDL/LDL) 02/13/20 24 CBC WITH DIFF 02/13/2024 CBC WITH DIFF 03/14/2023 PSA, PROSTATE-SPECIFIC ANTIGEN 3 URIC ACID 03/14/2023 URIC ACID 02/13/2024 MRI Ankle RT w/o contrast (H[facility] Foot) PSA, TOTAL 02/13/2024 SED RATE WESTERGREN 05/23/2023 CT CHEST WO CON 04/16/2024 VC VENOUS REFLUX CHIOMA LMT 10/30/2024 XR ANKLE RT MIN 3 VIEWS 05/23/2023 THYROID PANEL (T4/TSH/FREE T3) 3 THYROID PANEL (T4/TSH/FREE T3) 4 XR ANKLE RT 2V 05/23/2023 MEAGHAN Segmental Pressure Study of Lower Ex tremity 10/30/2024 US AXILLA LT 04/12/2024 Insurance Providers Payer Name Payer Address Payer Phone Subscriber Number Group Number Insured Name Patient Relationship to Insured Coverage Start Date Coverage End Date MMO [employer] [address] [place] [address] [id number] Romero Scott Self - patient is the insured Medications Administered Medication Instructions Date of Administration Dosage Notes Dexamethasone, 4mg/mL 05/23/2023 3 mL 12 Ketorolac Tromethamine 05/23/2023 60 mg 60 Medical (General) History Medical History History ICD Code Gout M10.9 Seasonal allergic rhinitis J30.2 Surgical History Surgery Date(Month/Year) Colonoscopy Hospitalization History Reason Date(Month/Year) see above
--- OUTSIDE RECORDS SUMMARY | 2024-11-22 07:57 | XMS_ITS | CCD ---
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 Name Role Phone DR SHARATH IVORY Attending Unavailable DR SHARATH IVORY Consulting Unavailable DR SHARATH IVORY Primary Care Unavailable DR SHARATH IVORY Admitting Unavailable Allergies Allergy Classification Reported Allergen(s) Allergy Type Date of Onset Reaction(s) Facility (1 source) Sulfonamides (Antibiotic) Drug allergy (disorder) [facility] Repository Problems Problem Classification Problem Date Documented Da te Episodic/Chronic Other screening for suspected conditions (not mental disorders or infectious disease) (1 source) Encounter for screening for malignant neoplasm of prostate; Translations: [ENC SCREEN MALIG NEOPLASM PROSTATE] Onset: 02-04-2022 Episodic Results Test Name Value Interpretation Reference Range Facil ity INSULINon 02-04-2022 Insulin 9.2 uIU/mL Normal 2.6-24.9 [facility] Comment on above: Performed By: #### I NSULIN #### [facility] Laboratory [address] [place] [address] Dr. Benjamin Clement CBC AUTO DIFFon 02-03-2022 BASO # 0.1 103/ul Normal 0.0-0.1 [facility] Comment on above: Performed By: #### C BC #### [facility] Laboratory [address] [place] [address] Dr. Benjamin Clement Basophils/100 WBC (Bld) 0.8 % Normal 0.2-2.0 [facility] Comment on above: Performed By: #### C BC #### [facility] Laboratory [address] [place] [address] Dr. Benjamin Clement EO # 0.2 103/ul Normal 0.0-0.7 [facility] Comment on above: Performed By: #### C BC #### [facility] Laboratory [address] [place] [address] Dr. Benjamin Clement Eosinophils/100 WBC (Bld) 3.1 % Normal 0.9-7.0 [facility] Comment on above: Performed By: #### C BC #### [facility] Laboratory [address] [place] [address] Dr. Benjamin Clement Erythrocyte distribution width (RBC) [Ratio] 13.1 % Normal 11.0-15.0 [facility] Comment on above: Performed By: #### C BC #### [facility] Laboratory [address] [place] [address] Dr. Benjamin Clement Hematocrit (Bld) [Volume fraction] 44.0 % Normal 42.0-54.0 [facility] Comment on above: Performed By: #### C BC #### [facility] Laboratory [address] [place] [address] Dr. Benjamin Clement Hemoglobin (Bld) [Mass/Vol] 14.6 g/dL Normal 14.0-18.0 [facility] Comment on above: Performed By: #### C BC #### [facility] Laboratory [address] [place] [address] Dr. Benjamin Clement IG # 0.03 10e3/ul Normal 0.00-0.03 [facility] Comment on above: Performed By: #### C BC #### [facility] Laboratory [address] [place] [address] Dr. Benjamin Clement IG % 0.5 % Normal 0.0-0.5 [facility] Comment on above: Performed By: #### C BC #### [facility] Laboratory [address] [place] [address] Dr. Benjamin Clement LYMPH # 1.8 103/ul Normal 1.2-3.8 [facility] Comment on above: Performed By: #### C BC #### [facility] Laboratory [address] [place] [address] Dr. Benjamin Clement Lymphocytes/100 WBC (Bld) 27.1 % Normal 20.5-60.0 [facility] Comment on above: Performed By: #### C BC #### [facility] Laboratory [address] [place] [address] Dr. Benjamin Clement MANUAL DIFF REQ NO Normal [facility] Comment on above: Performed By: #### C BC #### [facility] Laboratory [address] [place] [address] Dr. Benjamin Clement MCH (RBC) [Entitic mass] 28.3 pg Normal 25.9-34.0 [facility] Comment on above: Performed By: #### C BC #### [facility] Laboratory [address] [place] [address] Dr. Benjamin Clement MCHC (RBC) [Mass/Vol] 33.2 g/dL Normal 29.9-35.2 [facility] Comment on above: Performed By: #### C BC #### [facility] Laboratory [address] [place] [address] Dr. Benjamin Clement MCV (RBC) [Entitic vol] 85.4 fL Normal 80.0-94.0 [facility] Comment on above: Performed By: #### C BC #### [facility] Laboratory [address] [place] [address] Dr. Benjamin Clement MONO # 0.6 103/ul Normal 0.3-0.8 [facility] Comment on above: Performed By: #### C BC #### [facility] Laboratory [address] [place] [address] Dr. Benjamin Clement Monocytes/100 WBC (Bld) 8.6 % Normal 1.7-12.0 [facility] Comment on above: Performed By: #### C BC #### [facility] Laboratory [address] [place] [address] Dr. Benjamin Clement NEUT # 3.9 103/ul Normal 1.4-6.5 [facility] Comment on above: Performed By: #### C BC #### [facility] Laboratory [address] [place] [address] Dr. Benjamin Clement Neutrophils/100 WBC (Bld) 59.9 % Normal 43.0-75.0 [facility] Comment on above: Performed By: #### C BC #### [facility] Laboratory [address] [place] [address] Dr. Benjamin Clement Platelet mean volume (Bld) [Entitic vol] 10.2 fL Normal 9.5-13.5 [facility] Comment on above: Performed By: #### C BC #### [facility] [address] [place] [address] Dr. Benjamin Clement PLT 205 103/ul Normal 150-450 [facility] Comment on above: Performed By: #### C BC #### [facility] [address] [place] [address] Dr. Benjamin Clement RBC 5.15 106/ul Normal 4.70-6.10 [facility] Comment on above: Performed By: #### C BC #### [facility] [address] [place] [address] Dr. Benjamin Clement WBC 6.5 103/ul Normal 4.0-11.0 [facility] Comment on above: Performed By: #### C BC #### [facility] Laboratory [address] [place] [address] Dr. Benjamin Clement GLYCOHEMOGLOBIN A1Con 2021 ADA RECOMMENDATION SEE BELOW Normal [facility] Comment on above: Result Comment: ADA RECOMMENDED LIMIT 4.0 - 6.0 ADA THERAPEUTIC TARGET < 7.0 ACTION SUGGESTED > 7.0 Performed By: #### A 1C #### [facility] Laboratory [address] [place] [address] Dr. Benjamin Clement Glucose [Mass/Vol] 123 mg/dL Normal [facility] Comment on above: Performed By: #### A 1C #### [facility] Laboratory [address] [place] [address] Dr. Benjamin Clement HbA1c (Bld) [Mass fraction] 5.9 % Normal 4.5-6.2 [facility] Comment on above: Performed By: #### A 1C #### [facility] Laboratory [address] [place] [address] Dr. Benjamin Clement LIPID PROFILEon 02-03-2022 CHOL-HDL RATIO NORM SEE BELOW Normal [facility] Comment on above: Result Comment: 3.3 - 4.4 LOW RISK 4.4 - 7.1 AVERAGE RISK 7.1 - 11.0 MODERATE RISK >11.0 HIGH RISK Performed By: #### C MP, LIPID, URIC #### [facility] Laboratory [address] [address] [address] Benjamin Clement Cholesterol [Mass/Vol] 203 mg/dL Critically high <=200 [facility] Comment on above: Performed By: #### C MP, LIPID, URIC #### [facility] [address] [address] [address] Benjamin Clement Cholesterol in HDL [Mass/Vol] 41 mg/dL Normal 40-60 [facility] Comment on above: Performed By: #### C MP, LIPID, URIC #### [facility] [address] [address] [address] Benjamin Clement Cholesterol in LDL [Mass/Vol] 145.6 mg/dL Normal [facility] Comment on above: Performed By: #### C MP, LIPID, URIC #### [facility] [address] [address] [address] Benjamin Clement Cholesterol.total/Cho lesterol in HDL [Mass ratio] 5.0 {ratio} Normal [facility] Comment on above: Performed By: #### C MP, LIPID, URIC #### [facility] [address] [address] [address] Benjamin Clement HDL NORMAL > or = 60 mg/dl - LOW CARDIOVASCULAR RISK <40 mg/dl - HIGH CARDIOVASCULAR RISK Normal [facility] Comment on above: Performed By: #### C MP, LIPID, URIC #### [facility] [address] [address] [address] Benjamin Clement LDL CALC NORMAL SEE BELOW Normal [facility] Comment on above: Result Comment: <100 mg/dl OPTIMAL 100 - 129 mg/dl NEAR OR ABOVE OPTIMAL 130 - 159 mg/dl BORDERLINE HIGH 160 - 189 mg/dl HIGH >190 mg/dl VERY HIGH Performed By: #### C MP, LIPID, URIC #### [facility] [address] [address] [address] Benjamin Clement Triglyceride [Mass/Vol] 82 mg/dL Normal <=150 [facility] Comment on above: Performed By: #### C MP, LIPID, URIC #### [facility] [address] [address] [address] Benjamin Clement VLDL CALC 16.4 mg/dL Normal [facility] Comment on above: Performed By: #### C MP, LIPID, URIC #### [facility] Laboratory [address] [place] [address] Dr. Benjamin Clement PROF 14(COMP METB)on 022 Albumin [Mass/Vol] 4.2 g/dL Normal 3.4-5.0 [facility] Comment on above: Performed By: #### C MP, LIPID, URIC #### [facility] [address] [place] [address] Dr. Benjamin Clement Albumin/Globulin [Mass ratio] 1.2 {ratio} Normal [facility] Comment on above: Performed By: #### C MP, LIPID, URIC #### [facility] [address] [place] [address] Dr. Benjamin Clement ALP [Catalytic activity/Vol] 61 U/L Normal 46-116 [facility] Comment on above: Performed By: #### C MP, LIPID, URIC #### [facility] [address] [place] [address] Dr. Benjamin Clement ALT [Catalytic activity/Vol] 49 U/L Normal 16-63 [facility] Comment on above: Performed By: #### C MP, LIPID, URIC #### [facility] Laboratory [address] [place] [address] Dr. Benjamin Clement Anion gap [Moles/Vol] 12.2 mmol/L Normal [facility] Comment on above: Performed By: #### C MP, LIPID, URIC #### [facility] Laboratory [address] [place] [address] Dr. Benjamin Clement AST [Catalytic activity/Vol] 26 U/L Normal 15-37 [facility] Comment on above: Performed By: #### C MP, LIPID, URIC #### [facility] [address] [place] [address] Dr. Benjamin Clement Bilirubin [Mass/Vol] 0.5 mg/dL Normal 0.2-1.0 [facility] Comment on above: Performed By: #### C MP, LIPID, URIC #### [facility] [address] [address] [address] Benjamin Clement Calcium [Mass/Vol] 8.9 mg/dL Normal 8.5-10.1 [facility] Comment on above: Performed By: #### C MP, LIPID, URIC #### [facility] [address] [address] [address] Benjamin Clement Chloride [Moles/Vol] 103 mmol/L Normal 98-107 [facility] Comment on above: Performed By: #### C MP, LIPID, URIC #### [facility] [address] [address] [address] Benjamin Clement CO2 [Moles/Vol] 26.9 mmol/L Normal 21.0-32.0 [facility] Comment on above: Performed By: #### C MP, LIPID, URIC #### [facility] [address] [place] [address] Dr. Benjamin Clement Creatinine [Mass/Vol] 0.94 mg/dL Normal 0.70-1.30 [facility] Comment on above: Performed By: #### C MP, LIPID, URIC #### [facility] Laboratory [address] [place] [address] Dr. Benjamin Clement EGFR-AF YEMENI >60 Normal >=60 [facility] Comment on above: Performed By: #### C MP, LIPID, URIC #### [facility] [address] [place] [address] Dr. Benjamin Clement EGFR-NON AF YEMENI >60 Normal >=60 [facility] Comment on above: Performed By: #### C MP, LIPID, URIC #### [facility] Laboratory [address] [place] [address] Dr. Benjamin Clement Globulin (S) [Mass/Vol] 3.5 g/dL Normal [facility] Comment on above: Performed By: #### C MP, LIPID, URIC #### [facility] Laboratory [address] [place] [address] Dr. Benjamin Clement Glucose [Mass/Vol] 88 mg/dL Normal 74-106 [facility] Comment on above: Performed By: #### C MP, LIPID, URIC #### [facility] [address] [address] [address] Benjamin Clement Potassium [Moles/Vol] 4.1 mmol/L Normal 3.5-5.1 [facility] Comment on above: Performed By: #### C MP, LIPID, URIC #### [facility] Laboratory [address] [place] [address] Dr. Benjamin Clement Protein [Mass/Vol] 7.7 g/dL Normal 6.4-8.2 [facility] Comment on above: Performed By: #### C MP, LIPID, URIC #### [facility] [address] [address] [address] Benjamin Clement Sodium [Moles/Vol] 138 mmol/L Normal 136-145 [facility] Comment on above: Performed By: #### C MP, LIPID, URIC #### [facility] [address] [address] [address] Benjamin Clement Urea nitrogen [Mass/Vol] 17.0 mg/dL Normal 7.0-18.0 [facility] Comment on above: Performed By: #### C MP, LIPID, URIC #### [facility] [address] [place] [address] Dr. Benjamin Clement Urea nitrogen/Creatinine [Mass ratio] 18.1 mg/mg Normal [facility] Comment on above: Performed By: #### C MP, LIPID, URIC #### [facility] Laboratory [address] [place] [address] Dr. Benjamin Clement URIC ACID SERUMon 02-03-2022 Urate [Mass/Vol] 8.6 mg/dL Critically high 3.5-7.2 [facility] Comment on above: Performed By: #### C MP, LIPID, URIC #### [facility] [address] [place] [address] Dr. Benjamin Clement Encounters Encounter Date Encounter Type Care Provider Facility Start: 02-04-2022 Encounter for genera l adult medical examination without abnormal findings DR SHARATH IVORY [facility] Start: 02-03-2022 End: 02-04-[address] SHARATH IVORY Facility:[facility] Start: 02-03-2022 End: 02-04-2022 Encounter for general adult medical examination without abnormal findings DR SHARATH IVORY Facility:[facility] Procedures Date Procedure Procedure Detail Performing Clinician Start: 02-03-[address] NIKIA IVORY Comment on above: Performed By: #### P [facility] #### [facility] [address] [address] [address] Benjamin Clement Payers Date Payer Category Payer Unknown [id number] 1960 Unknown [id number] Summary Purpose Family History No Family History Records Found Advance Directives No Advanced Directives Records Found Additional Source Comments (unrecognized sect ion and content) No Status Records Found INFORMATION SOURCE (unrecogn ized section and content) DATE CREATED AUTHOR 02/10/2022 [facility] FOR RECORDS PERTAINING TO PATIENTS WHO ARE [...] ON THE PRIMARY CLINICAL RECORDS. [facility] provides no warranty or guarantee of the accuracy or completeness of information in this document.
--- NOTE | 2024-11-22 09:00 | CA_ITS ---
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 Interpretive Statements Summary of the findings: Right leg: MEAGHAN= 1.26; TBI= 0.79. Doppler waveforms demonstrate biphasic flow at the posterior tibial and dorsalis pedis arteries. Left leg: MEAGHAN= 1.29; TBI= 0.57. Doppler waveforms demonstrate multiphasic flow at the posterior tibial and dorsalis pedis arteries. Segmental pressures: Segmental pressures are normal bilaterally. Pulse volume recordings: PVRs at the high thigh, below knee, and ankle levels show normal waveforms. Conclusion: Right and left ankle-brachial indices are suggestive of normal overall arterial flow at rest. Toe-brachial indices are suggestive of left sided PAD. Segmental pressures show no segmental disease. Pulse volume recordings indicate good overall resting arterial flow. Overall grossly normal resting physiologic examination. Electronically Signed On 11-22-2024 20:26:43 EDT by CONNER HSU M.D.
== END 2024-11-22 07:50 | disposition home or self-care (01) ==
LOC: US 07:51
PROVIDERS: PCP Family Medicine; Visit Provider Family Medicine
DX: M79.604 Pain in right leg (principal); I73.9 Peripheral vascular disease, unspecified
CPT/HCPCS: 93923; 93970

== ENCOUNTER 2025-04-02 08:51 | Outpatient (OUT) | payer OTHER, SELFPAY ==
--- OUTSIDE RECORDS SUMMARY | 2025-04-02 09:02 | XMS_ITS | CCD ---
Author Organization [facility] Care Team Providers Care Junior Financial Analyst Name Role Phone DR SHARATH MUJICA Attending Unavailable CACHORRO, DR EARLY Consulting Unavailable DR SHARATH MUJICA Primary Care Unavailable DR SHARATH MUJICA Admitting Unavailable Sharath Mujica MD Primary Care Provider [phone] JASON CORTEZ Attending Unavailable JASON CORTEZ F Referring Unavailable SHARATH MUJICA Primary Care Unavailable JASON CORTEZ Attending Unavailable SHARATH MUJICA Referring Unavailable SHARATH MUJICA Primary Care Unavailable JASON CORTEZ Attending Unavailable SHARATH MUJICA Referring Unavailable SHARATH MUJICA Primary Care Unavailable Sharath Mujica MD Primary Care Provider [phone] Unavailable Primary Care Provider Unavailabl e RASHAD QUINTERO Attending Unavailable ROMERO SALES Referring Unavailable RASHAD QUINTERO Attending Unavailable RASHAD QUINTERO Attending Unavailable Allergies Allergy Classification Reported Allergen(s) Allergy Type Date of Onset Reaction(s) Facility (1 source) Sulfonamides (Antibiotic) Drug allergy (disorder) [facility] (10 sources) Sulfonamides (Antibiotic); Translations: [SULFA (SULFONAMIDE ANTIBIOTICS)] Propensity to adverse reactions to drug Rash, Flushing, Hives [facility] Medications Current Medications Medication Drug Class(es) Dates Sig (Normalized) Sig (Original) acyclovir 400 mg oral tablet (6 sources) Herpesvirus Nucleoside Analog DNA Polymerase Inhibitor, Herpes Simplex Virus Nucleoside Analog DNA Polymerase Inhibitor, Herpes Zoster Virus Nucleoside Analog DNA Polymerase Inhibitor Start: 03-22-2025 take 1 tablet by mouth five times daily acyclovir (Zovirax) 400 MG tablet Indications: Keratitis, herpetic Take 1 tablet (400 mg) by mouth 5 (five) times a day 60 tablet 1 03/22/2025 Active allopurinol 100 mg oral tablet (8 sources) Xanthine Oxidase Inhibitor Start: 01-22-2025 take 1 tablet by mouth in the morning allopurinoL (ZYLOPRIM) 100 mg tablet Take 1 tablet (100 mg total) by mouth in the morning. 01/22/2025 Active Start: 11-26-2024 End: 12-26-2024 take 1 tablet by mouth in the morning, then take 1 tablet by mouth once daily allopurinoL (ZYLOPRIM) 100 mg tablet Take 1 tablet (100 mg total) by mouth in the morning. TAKE 1 TABLET BY MOUTH EVERY DAY FOR 30 DAYS. 11/26/2024 12/26/2024 Active erythromycin 0.005 mg/mg ophthalmic ointment (3 sources) Macrolide, Macrolide Antimicrobial Start: 03-23-2025 erythromycin (Romycin) 5 MG/GM ophthalmic ointment 03/23/2025 Active fexofenadine hydrochloride 180 mg oral tablet (6 sources) Histamine-1 Receptor Antagonist fexofenadine (Sarahi Allergy) 180 MG tablet 1 (one) time each day at the same time Active indomethacin 50 mg oral capsule (6 sources) Nonsteroidal Anti-inflammatory Drug indomethacin (Indocin) 50 MG capsule every 12 (twelve) hours Active lisinopril 10 mg oral tablet (8 sources) Angiotensin Converting Enzyme Inhibitor Start: 12-02-2024 End: 01-01-2025 take 1 tablet by mouth in the morning, then take 1 tablet by mouth once daily lisinopriL (PRINIVIL,ZESTRIL) 10 mg tablet Take 1 tablet (10 mg total) by mouth in the morning. TAKE 1 TABLET BY MOUTH EVERY DAY FOR 30 DAYS. 12/02/2024 01/01/2025 Active meloxicam 15 mg oral tablet (8 sources) Nonsteroidal Anti-inflammatory Drug Start: 01-23-2025 take 1 tablet by mouth every twenty-four hours as needed meloxicam (Mobic) 15 MG tablet Take 15 mg by mouth Daily as needed 01/23/2025 Active Start: 11-25-2024 End: 12-25-2024 take 1 tablet by mouth in the morning, then take 1 tablet by mouth once daily meloxicam (MOBIC) 15 mg tablet Take 1 tablet (15 mg total) by mouth in the morning. TAKE 1 TABLET BY MOUTH EVERY DAY FOR 30 DAYS. 11/25/2024 12/25/2024 Active moxifloxacin 5 mg/ml ophthalmic solution (6 sources) Quinolone Antimicrobial Start: 03-22-2025 take 1 drop(s) into the eye(s) every two hours, then take 1 drop(s) into the eye(s) four times daily moxifloxacin (Vigamox) 0.5 % ophthalmic solution Indications: Corneal ulcer of left eye Administer 1 drop into the left eye every 2 (two) hours 1 drop four times a day to the right eye starting 3 days prior to surgery 3 mL 3 03/22/2025 Active Probiotic tablet delayed-release (6 sources) Probiotic tablet delayed-release as directed Orally Active Problems Problem Classification Problem Date Documented Da te Episodic/Chronic Inflammation; infection of eye (except that caused by tuberculosis or sexually transmitteddisease) (9 sources) Herpes simplex keratitis; 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] Onset: 03-22-2025 03-22-2025 Episodic Other connective tissue disease (4 sources) Pain in right lower limb; Translations: [Pain in right leg] Onset: 12-20-2024 12-20-2024 Episodic Other connective tissue disease (2 sources) Pain in right leg; Translations: [Pain in right leg] Onset: 12-20-2024 Episodic Other eye disorders (9 sources) Ulcer of cornea of left eye; Translations: [Unspecified corneal ulcer, left eye] Onset: 03-22-2025 03-22-2025 Episodic Other nervous system disorders (1 source) Other chronic pain; Translations: [Other chronic pain] Onset: 01-24-2025 Chronic Other non-traumatic joint disorders (2 sources) Chronic ankle pain; Translations: [Pain in right ankle and joints of right foot] Onset: 01-24-2025 01-24-2025 Episodic Other non-traumatic joint disorders (1 source) Pain in right ankle and joints of right foot; Translations: [Pain in right ankle and joints of right foot] Onset: 01-24-2025 Episodic Other screening for suspected conditions (not mental disorders or infectious disease) (1 source) Encounter for screening for malignant neoplasm of prostate; Translations: [ENC SCREEN MALIG NEOPLASM PROSTATE] Onset: 02-04-2022 Episodic Unclassified (1 source) New Patient Onset: 12-20-2024 Varicose veins of lower extremity (7 sources) Varicose veins of lower limb co-occurrent with edema; Translations: [Varicose veins of right lower extremity with other complications] Onset: 12-20-2024 12-20-2024 Episodic Results Test Name Value Interpretation Reference Range Facil ity INSULINon 02-04-2022 Insulin 9.2 uIU/mL Normal 2.6-24.9 [facility] Comment on above: Performed By: #### I NSULIN #### [facility] [address] [address] [address] Benjamin Clement CBC AUTO DIFFon 02-03-2022 BASO # 0.1 103/ul Normal 0.0-0.1 [facility] Comment on above: Performed By: #### C BC #### [facility] [address] [address] [address] Benjamin Clement Basophils/100 WBC (Bld) 0.8 % Normal 0.2-2.0 [facility] Comment on above: Performed By: #### C BC #### [facility] [address] [address] [address] Benjamin Clement EO # 0.2 103/ul Normal 0.0-0.7 [facility] Comment on above: Performed By: #### C BC #### [facility] [address] [address] [address] Benjamin Clement Eosinophils/100 WBC (Bld) 3.1 % Normal 0.9-7.0 [facility] Comment on above: Performed By: #### C BC #### [facility] [address] [address] [address] Benjamin Clement Erythrocyte distribution width (RBC) [Ratio] 13.1 % Normal 11.0-15.0 [facility] Comment on above: Performed By: #### C BC #### [facility] [address] [place] [address] Dr. Benjamin Clement Hematocrit (Bld) [Volume fraction] 44.0 % Normal 42.0-54.0 [facility] Comment on above: Performed By: #### C BC #### [facility] [address] [place] [address] Dr. Benjamin Clement Hemoglobin (Bld) [Mass/Vol] 14.6 g/dL Normal 14.0-18.0 [facility] Comment on above: Performed By: #### C BC #### [facility] [address] [place] [address] Dr. Benjamin Clement IG # 0.03 10e3/ul Normal 0.00-0.03 [facility] Comment on above: Performed By: #### C BC #### [facility] [address] [place] [address] Dr. Benjamin Clement IG % 0.5 % Normal 0.0-0.5 [facility] Comment on above: Performed By: #### C BC #### [facility] [address] [place] [address] Dr. Benjamin Clement LYMPH # 1.8 103/ul Normal 1.2-3.8 [facility] Comment on above: Performed By: #### C BC #### [facility] [address] [place] [address] Dr. Benjamin Clement Lymphocytes/100 WBC (Bld) 27.1 % Normal 20.5-60.0 [facility] Comment on above: Performed By: #### C BC #### [facility] [address] [place] [address] Dr. Benjamin Clement MANUAL DIFF REQ NO Normal [facility] Comment on above: Performed By: #### C BC #### [facility] [address] [place] [address] Dr. Benjamin Clement MCH (RBC) [Entitic mass] 28.3 pg Normal 25.9-34.0 [facility] Comment on above: Performed By: #### C BC #### [facility] [address] [place] [address] Dr. Benjamin Clement MCHC (RBC) [Mass/Vol] 33.2 g/dL Normal 29.9-35.2 [facility] Comment on above: Performed By: #### C BC #### [facility] [address] [place] [address] Dr. Benjamin Clement MCV (RBC) [Entitic vol] 85.4 fL Normal 80.0-94.0 [facility] Comment on above: Performed By: #### C BC #### [facility] [address] [place] [address] Dr. Benjamin Clement MONO # 0.6 103/ul Normal 0.3-0.8 [facility] Comment on above: Performed By: #### C BC #### [facility] [address] [place] [address] Dr. Benjamin Clement Monocytes/100 WBC (Bld) 8.6 % Normal 1.7-12.0 [facility] Comment on above: Performed By: #### C BC #### [facility] [address] [place] [address] Dr. Benjamin Clement NEUT # 3.9 103/ul Normal 1.4-6.5 [facility] Comment on above: Performed By: #### C BC #### [facility] [address] [place] [address] Dr. Benjamin Clement Neutrophils/100 WBC (Bld) 59.9 % Normal 43.0-75.0 [facility] Comment on above: Performed By: #### C BC #### [facility] [address] [place] [address] Dr. Benjamin Clement Platelet mean volume (Bld) [Entitic vol] 10.2 fL Normal 9.5-13.5 [facility] Comment on above: Performed By: #### C BC #### [facility] [address] [place] [address] Dr. Benjamin Clement PLT 205 103/ul Normal 150-450 [facility] Comment on above: Performed By: #### C BC #### [facility] [address] [place] [address] Dr. Benjamin Clement RBC 5.15 106/ul Normal 4.70-6.10 [facility] Comment on above: Performed By: #### C BC #### [facility] [address] [place] [address] Dr. Benjamin Clement WBC 6.5 103/ul Normal 4.0-11.0 [facility] Comment on above: Performed By: #### C BC #### [facility] [address] [address] [address] Benjamin Clement GLYCOHEMOGLOBIN A1Con 2021 ADA RECOMMENDATION SEE BELOW Normal [facility] Comment on above: Result Comment: ADA RECOMMENDED LIMIT 4.0 - 6.0 ADA THERAPEUTIC TARGET < 7.0 ACTION SUGGESTED > 7.0 Performed By: #### A 1C #### [facility] [address] [address] [address] Benjamin Clement Glucose [Mass/Vol] 123 mg/dL Normal [facility] Comment on above: Performed By: #### A 1C #### [facility] [address] [address] [address] Benjamin Clement HbA1c (Bld) [Mass fraction] 5.9 % Normal 4.5-6.2 [facility] Comment on above: Performed By: #### A 1C #### [facility] [address] [address] [address] Benjamin Clement LIPID PROFILEon 02-03-2022 CHOL-HDL RATIO NORM SEE BELOW Normal [facility] Comment on above: Result Comment: 3.3 - 4.4 LOW RISK 4.4 - 7.1 AVERAGE RISK 7.1 - 11.0 MODERATE RISK >11.0 HIGH RISK Performed By: #### C MP, LIPID, URIC #### [facility] [address] [address] [address] Benjamin Clement Cholesterol [Mass/Vol] 203 mg/dL Critically high <=200 [facility] Comment on above: Performed By: #### C MP, LIPID, URIC #### [facility] [address] [address] [address] Benjamin Clement Cholesterol in HDL [Mass/Vol] 41 mg/dL Normal 40-60 [facility] Comment on above: Performed By: #### C MP, LIPID, URIC #### [facility] [address] [address] [address] Benjamin Clement Cholesterol in LDL [Mass/Vol] 145.6 mg/dL Normal [facility] Comment on above: Performed By: #### C MP, LIPID, URIC #### [facility] [address] [address] [address] Benjamin Clement Cholesterol.total/Cho lesterol in HDL [Mass ratio] 5.0 {ratio} Normal [facility] Comment on above: Performed By: #### C MP, LIPID, URIC #### [facility] [address] [address] [address] Benjamin Clement HDL NORMAL > or = 60 mg/dl - LOW CARDIOVASCULAR RISK <40 mg/dl - HIGH CARDIOVASCULAR RISK Normal [facility] Comment on above: Performed By: #### C MP, LIPID, URIC #### [facility] [address] [address] [address] Benjamin Clement LDL CALC NORMAL SEE BELOW Normal [facility] Comment on above: Result Comment: <100 mg/dl OPTIMAL 100 - 129 mg/dl NEAR OR ABOVE OPTIMAL 130 - 159 mg/dl BORDERLINE HIGH 160 - 189 mg/dl HIGH >190 mg/dl VERY HIGH Performed By: #### C MP, LIPID, URIC #### [facility] [address] [address] [address] Benjamin Clement Triglyceride [Mass/Vol] 82 mg/dL Normal <=150 [facility] Comment on above: Performed By: #### C MP, LIPID, URIC #### [facility] [address] [address] [address] Benjamin Clement VLDL CALC 16.4 mg/dL Normal [facility] Comment on above: Performed By: #### C MP, LIPID, URIC #### [facility] [address] [address] [address] Benjamin Clement PROF 14(COMP METB)on 022 Albumin [Mass/Vol] 4.2 g/dL Normal 3.4-5.0 [facility] Comment on above: Performed By: #### C MP, LIPID, URIC #### [facility] [address] [address] [address] Benjamin Clement Albumin/Globulin [Mass ratio] 1.2 {ratio} Normal [facility] Comment on above: Performed By: #### C MP, LIPID, URIC #### [facility] [address] [address] [address] Benjamin Clement ALP [Catalytic activity/Vol] 61 U/L Normal 46-116 [facility] Comment on above: Performed By: #### C MP, LIPID, URIC #### [facility] [address] [address] [address] Benjamin Clement ALT [Catalytic activity/Vol] 49 U/L Normal 16-63 [facility] Comment on above: Performed By: #### C MP, LIPID, URIC #### [facility] [address] [address] [address] Benjamin Clement Anion gap [Moles/Vol] 12.2 mmol/L Normal [facility] Comment on above: Performed By: #### C MP, LIPID, URIC #### [facility] [address] [address] [address] Benjamin Clement AST [Catalytic activity/Vol] 26 U/L Normal 15-37 [facility] Comment on above: Performed By: #### C MP, LIPID, URIC #### [facility] [address] [address] [address] Benjamin Clement Bilirubin [Mass/Vol] 0.5 mg/dL Normal 0.2-1.0 [facility] Comment on above: Performed By: #### C MP, LIPID, URIC #### [facility] [address] [address] [address] Benjamin Clement Calcium [Mass/Vol] 8.9 mg/dL Normal 8.5-10.1 [facility] Comment on above: Performed By: #### C MP, LIPID, URIC #### [facility] [address] [address] [address] Benjamin Clement Chloride [Moles/Vol] 103 mmol/L Normal 98-107 [facility] Comment on above: Performed By: #### C MP, LIPID, URIC #### [facility] [address] [address] [address] Benjamin Clement CO2 [Moles/Vol] 26.9 mmol/L Normal 21.0-32.0 [facility] Comment on above: Performed By: #### C MP, LIPID, URIC #### [facility] [address] [address] [address] Benjamin Clement Creatinine [Mass/Vol] 0.94 mg/dL Normal 0.70-1.30 [facility] Comment on above: Performed By: #### C MP, LIPID, URIC #### [facility] [address] [address] [address] Benjamin Clement EGFR-AF BRAZILIAN >60 Normal >=60 [facility] Comment on above: Performed By: #### C MP, LIPID, URIC #### [facility] [address] [address] [address] Benjamin Clement EGFR-NON AF BRAZILIAN >60 Normal >=60 [facility] Comment on above: Performed By: #### C MP, LIPID, URIC #### [facility] [address] [address] [address] Benjamin Clement Globulin (S) [Mass/Vol] 3.5 g/dL Normal [facility] Comment on above: Performed By: #### C MP, LIPID, URIC #### [facility] [address] [address] [address] Benjamin Clement Glucose [Mass/Vol] 88 mg/dL Normal 74-106 [facility] Comment on above: Performed By: #### C MP, LIPID, URIC #### [facility] [address] [address] [address] Benjamin Clement Potassium [Moles/Vol] 4.1 mmol/L Normal 3.5-5.1 [facility] Comment on above: Performed By: #### C MP, LIPID, URIC #### [facility] [address] [address] [address] Benjamin Clement Protein [Mass/Vol] 7.7 g/dL Normal 6.4-8.2 [facility] Comment on above: Performed By: #### C MP, LIPID, URIC #### [facility] [address] [address] [address] Benjamin Clement Sodium [Moles/Vol] 138 mmol/L Normal 136-145 [facility] Comment on above: Performed By: #### C MP, LIPID, URIC #### [facility] [address] [address] [address] Benjamin Clement Urea nitrogen [Mass/Vol] 17.0 mg/dL Normal 7.0-18.0 [facility] Comment on above: Performed By: #### C MP, LIPID, URIC #### [facility] [address] [address] [address] Benjamin Clement Urea nitrogen/Creatinine [Mass ratio] 18.1 mg/mg Normal [facility] Comment on above: Performed By: #### C MP, LIPID, URIC #### [facility] [address] [place] [address] Dr. Benjamin Clement URIC ACID SERUMon 02-03-2022 Urate [Mass/Vol] 8.6 mg/dL Critically high 3.5-7.2 [facility] Comment on above: Performed By: #### C MP, LIPID, URIC #### [facility] [address] [place] [address] Dr. Benjamin Clement Vital Signs Date Time Vital Sign Value Performing Clinician Faci lity 01-24-2025 09:290400 Body height 177.8 cm Jason Cortez MD Work Phone: [facility] 01-24-2025 09:29-0400 Body mass index (BMI) [Ratio] 32 kg/m2 Jason Cortez MD Work Phone: [facility] 01-24-2025 09:290400 Body weight 101.15 kg Jason Cortez MD Work Phone: [facility] 01-24-2025 09:290400 Diastolic blood pressure 82 mm[Hg] Jason Cortez MD Work Phone: [facility] 01-24-2025 09:290400 Heart rate 61 /min Jason Cortez MD Work Phone: [facility] 01-24-2025 09:29-0400 Systolic blood pressure 148 mm[Hg] Jason Cortez MD Work Phone: [facility] 12-20-2024 10:37-0400 Body height 177.8 cm Jason Cortez MD Work Phone: [facility] 12-20-2024 10:37-0400 Body mass index (BMI) [Ratio] 32.28 kg/m2 Jason Cortez MD Work Phone: [facility] 12-20-2024 10:37-0400 Body weight 102.06 kg Jason Cortez MD Work Phone: [facility] 12-20-2024 10:37-0400 Diastolic blood pressure 90 mm[Hg] Jason Cortez MD Work Phone: [facility] 12-20-2024 10:37-0400 Heart rate 62 /min Jason Cortez MD Work Phone: [facility] 12-20-2024 10:37-0400 Systolic blood pressure 147 mm[Hg] Jason Cortez MD Work Phone: [facility] Encounters Encounter Date Encounter Type Care Provider Facility Start: 03-27-2025 End: 03-27-2025 Bamboo flowsheet Rashad D Zahler DO Work Phone: [facility] Start: 03-27-2025 End: 03-27-2025 Bamboo flowsheet Rsahad D Zahler DO Work Phone: [facility] Start: 03-27-2025 End: 03-27-2025 ambulatory RASHAD D ZAHLER Not Available Start: 03-25-2025 End: 03-25-2025 Bamboo flowsheet Rashad D Zahler DO Work Phone: [facility] Start: 03-25-2025 End: 03-25-2025 Bamboo flowsheet Rashad D Zahler DO Work Phone: [facility] Start: 03-25-2025 End: 03-25-2025 ambulatory RASHAD D ZAHLER Not Available Start: 03-22-2025 End: 03-22-2025 Bamboo flowsheet Rashad Dawna Romi DO Work Phone: [facility] Start: 03-22-2025 End: 03-22-2025 Bamboo flowsheet Rashad Dawna Romi DO Work Phone: [facility] Start: 03-22-2025 End: 03-22-2025 Refill Erma Lacey COT [facility] Start: 03-22-2025 End: 03-22-2025 Office outpatient new 45 minutes Rashad Dawna Quintero DO Work Phone: [facility] Comment on above: Corneal ulcer of lef t eye (Primary Dx); Keratitis, herpetic Start: 01-24-2025 End: 01-24-2025 Office outpatient visit 15 minutes Jason Cortez MD Work Phone: [facility] Comment on above: Varicose veins of ri t lower extremity with edema (Primary Dx); Chronic pain of right ankle Start: 01-24-2025 End: 01-24-2025 ambulatory [facility] Start: 12-28-2024 End: 12-28-2024 ambulatory [facility] Start: 12-20-2024 End: 12-20-2024 Office outpatient new 45 minutes Jason Cortez MD Work Phone: [facility] Comment on above: Varicose veins of ri t lower extremity with edema (Primary Dx); Leg pain, anterior, right Start: 12-20-2024 End: 12-20-2024 ambulatory [facility] Start: 02-04-2022 Encounter for genera l adult medical examination without abnormal findings DR SHARATH MUJICA [facility] Start: 02-03-2022 End: 02-04-[address] SHARATH MUJICA Facility:[facility] Start: 02-03-2022 End: 02-04-2022 Encounter for general adult medical examination without abnormal findings DR SHARATH MUJICA Facility:[facility] Procedures Date Procedure Procedure Detail Performing Clinician Start: 03-27-2025 End: 03-27-2025 Oph medical xm&eval intermediate estab pt Corneal ulcer of left eye Rashad Quintero DO Work Phone: Comment on above: Corneal ulcer of lef t eye (Primary Dx); Keratitis, herpetic Start: 03-25-2025 End: 03-25-2025 Ophth medical xm&eval intermediate estab pt Corneal ulcer of left eye Rashad Quintero DO Work Phone: Comment on above: Corneal ulcer of lef t eye (Primary Dx); Keratitis, herpetic Start: 02-03-[address] NIKIA MUJICA Comment on above: Performed By: #### [facility] #### [facility] [address] [place] [address] Dr. Benjamin Clement Plan of Treatment Date Care Activity Detail Author Start: 01-24-2026 Adult BMI Screening Adult BMI Screen ing [facility] Start: 12-20-2025 Adult BMI Screening Adult BMI Screen ing [facility] Start: 03-27-2025 End: 03-27-2025 Patient encounter procedure 03/27/2025 8:30 AM EDT Office Visit [facility] [address] [place] [address] Rashad Quintero DO [address] [place] [address] Arrived [facility] Comment on above: Arrived Start: 03-25-2025 End: 03-25-2025 Patient encounter procedure [facility] Comment on above: Arrived Start: 02-18-2025 Influenza vaccination P [facility] Start: 01-03-2025 End: 01-03-2025 Patient encounter procedure 01/03/2025 11:20 AM EDT Office Visit [facility] [address] [place] [address] Jason Cortez MD [address], [address] [place] [address] [facility] [place] Start: 12-28-2024 End: 12-28-2024 Patient encounter procedure 12/28/2024 2:15 PM EDT Appointment [facility] [address] [place] [id number] Jason Cortez MD [address], [address] [address] [facility] Start: 12-20-2024 End: 12-20-2025 US.doppler Lower extremity vein - bilateral Vas venous duplex insufficiency lwr bi Vascular Ultrasound Routine Leg pain, anterior, right Varicose veins of right lower extremity with edema Expected: 12/20/2024, Expires: 12/20/2025 [facility] Work Phone: Comment on above: Expected: 12/20/2024 , Expires: 12/20/2025 Start: 02-19-2024 COVID-19 Vaccine ( season) COVID-19 Vaccine ( season) [facility] Start: 2019 Administration of varicella zoster vaccine Zoster (Shingles) Vaccine (1 of 2) [facility] Start: 01-05-1988 DTaP,Tdap and Td Vaccines (1 - Tdap) DTaP,Tdap and Td Vaccines (1 - Tdap) [facility] Start: 1987 Adult BMI Follow Up Plan Adult BMI Follow Up Plan [facility] Start: 1981 Depression Screening Depression Scre ening [facility] Start: 1981 Tobacco Screening Tobacco Screening [facility] Start: 1969 Screening for malign ant neoplasm of colon [facility] Immunizations Immunization Date Immunization Notes Care Provider [facility] 04-12-2024 influenza virus vaccine, unspecified formulation Rashad Quintero DO Work Phone: [facility] 04-26-2022 influenza virus vaccine, unspecified formulation Jason Cortez MD Work Phone: [facility] Payers Date Payer Category Payer Commercial Managed C are - PPO [employer] [id number] 2023 Private [facility] [employer] [id number] 1969 Unknown [id number] 1969 Unknown [id number] [id number] 1969 Unknown [id number] [id number] 1969 Unknown [id number] [id number] 1969 Unknown [id number] [id number] 1969 Unknown [id number] [id number] 1969 Unknown [id number] [id number] 1959 Unknown [id number] Social History Date Type Detail Facility Tobacco smoking stat [facility] Tobacco smoking consumption unknown [facility] Start: 11-29-2018 End: 03-22-2025 History of Social function [facility] Start: 11-29-2018 End: 03-22-2025 Childcare [facility] Childcare Unknown [facility] Start: 1970 Sex assigned at Not on file P [facility] Start: 01-23-2015 Sex Male (finding) [facility] Start: 03-22-2025 Tobacco smoking stat [facility] Never smoked tobacco [facility] Start: 03-22-2025 Tobacco use and exposure Smokeless tobacco non-user [facility] Clinical Notes 12-20-2024 to 03-27-2025 Rashad Quintero DO - 03/27/2025 8:30 AM EDVeronica Quintero DO - 03/25/2025 1:00 PM EDVeronica Quintero DO - 03/22/2025 11:55 AM Mercedes Cortez MD - 01/24/2025 9:20 AM EDT Note Date & Type Note Facility 03-27-2025 History of Presen t illness Narrative Images from the original note were not included. Assessment/Plan Diagnoses and all orders for this visit: Corneal ulcer of left eye Keratitis, herpetic - Looks better. More corneal edema however epi healed. Will decrease Moxifloxacin QID. Cont Acyclovir 5xs/day and jacques at bedtime and cont Pred Acetate left eye (OS) QID. Add Zirgan left eye (OS) 5xs/day (sample given). - Still symptomatic however exam mildly better. documented in this encounter [facility] 03-25-2025 History of Presen t illness Narrative Images from the original note were not included. Assessment/Plan Diagnoses and all orders for this visit: Corneal ulcer of left eye Keratitis, herpetic - Looks better. More corneal edema however epi healed. Will decrease Moxifloxacin QID. Cont Acyclovir 5xs/day and jacques at bedtime and add Pred Acetate left eye (OS) QID. documented in this encounter [facility] 03-22-2025 History of Presen t illness Narrative Images from the original note were not included. Assessment/Plan Diagnoses and all orders for this visit: Corneal ulcer of left eye Keratitis, herpetic - Romero has a epi defect just off the visual axis without intense infiltrate and the appearance of dendritic tendrils. He is a contact lens (CL) wearer so will Rx Moxifloxacin left eye (OS) q2hrs today then q3hrs over the weekend. Will also Rx Acyclovir 400mg 5xs/day. - I have informed him that with the institution of the above regimen that he should gradually improve in comfort. If at any point he has an increase in pain, light sensitivity or decrease in vision he should call me through [facility] owner operator. - NO contact lens (CL) usage at this time. documented in this encounter [facility] 01-24-2025 Evaluation + Plan note Associated Problem(s): Chronic pain of right ankle Gout treatment and podiatry management [facility] 01-24-2025 Miscellaneous Notes Associate d Problem(s): Chronic pain of right ankle Gout treatment and podiatry management Associated Problem(s): Varicose veins of right lower extremity with edema Compression therapy and leg elevation documented in this encounter [facility] 01-24-2025 Evaluation + Plan note Associated Problem(s): Varicose veins of right lower extremity with edema Compression therapy and leg elevation [facility] 01-24-2025 History of Presen t illness Narrative Images from the original note were not included. To: SHARATH MUJICA MD HPI: Romero Parikh is a 55 y.o. male with pain. Was seen for concern of varicose veins and pain. He has swelling there. Venous duplex ultrasound does not show significant reflux. He was diagnosed with gout and he is getting treatment for that. 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 He feels much better. He does not have significant swelling today. Review of Systems: Review of Systems Constitutional: Negative. HENT: Negative. Respiratory: Negative. Cardiovascular: Negative. Gastrointestinal: Negative. Endocrine: Negative. Genitourinary: Negative. Musculoskeletal: Negative. Skin: Negative. Neurological: Negative. Hematological: Negative. Medications: Current Outpatient Medications on File Prior to Visit Medication Sig Dispense Refill allopurinoL (ZYLOPRIM) 100 mg tablet Take 1 tablet (100 mg total) by mouth in the morning. meloxicam (MOBIC) 15 mg tablet Take 1 tablet (15 mg total) by mouth daily as needed. PRN lisinopriL (PRINIVIL,ZESTRIL) 10 mg tablet Take 1 tablet (10 mg total) by mouth in the morning. No current facility-administered medications on file prior to visit. Past Medical History: No past medical history on file. Past Surgical History: No past surgical history on file. Social and Family History: Social History Socioeconomic History Marital status: Spouse name: Not on file Number of children: Not on file Years of education: Not on file Highest education level: Not on file Occupational History Not on file Tobacco Use Smoking status: Not on file Smokeless tobacco: Not on file Substance and Sexual Activity Alcohol use: Not on file Drug use: Not on file Sexual activity: Not on file Other Topics Concern Not on file Social History Narrative Not on file Social Drivers of Health Financial Resource Strain: Not on file Food Insecurity: Not on file Transportation Needs: Not on file Physical Activity: Not on file Stress: Not on file Social Connections: Not on file Interpersonal Safety: Not on file Housing Instability: Not on file No family history on file. Recent Labs: Recent and relative labs were reviewed and interpreted and contributed to the assessment and plan below. Vitals: BP 148/82 (BP Site: Right Arm, BP Postition: Sitting, BP CUFF SIZE: M (9-13 inches)) Pulse 61 Ht 177.8 cm (5' 10 ) Wt 101.2 kg (223 lb) BMI 32.00 kg/m Body mass index is 32 kg/m . Physical Exam: Physical Exam Constitutional: Appearance: Normal appearance. HENT: Head: Normocephalic and atraumatic. Mouth/Throat: Mouth: Mucous membranes are moist. Eyes: Extraocular Movements: Extraocular movements intact. Pupils: Pupils are equal, round, and reactive to light. Cardiovascular: Rate and Rhythm: Normal rate and regular rhythm. Pulmonary: Effort: Pulmonary effort is normal. Breath sounds: Normal breath sounds. Abdominal: General: Abdomen is flat. Bowel sounds are normal. Palpations: Abdomen is soft. Musculoskeletal: General: Normal range of motion. Cervical back: Normal range of motion. Skin: General: Skin is warm and dry. Neurological: General: No focal deficit present. Mental Status: He is alert and oriented to person, place, and time. Mental status is at baseline. Psychiatric: Mood and Affect: Mood normal. Behavior: Behavior normal. Thought Content: Thought content normal. Judgment: Judgment normal. 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 While intending to generate a timely document that accurately reflects the content of the visit, no guarantee can be provided that every grammatical or spelling mistake has been or will be identified or corrected. Thank you for your understanding. documented in this encounter [facility] 12-20-2024 Evaluation + Plan note Associated Problem(s): Leg pain, anterior, right Recommend evaluation by foot and ankle orthopedic surgeon [facility] 12-20-2024 Evaluation + Plan note Associated Problem(s): Varicose veins of right lower extremity with edema He has some varicose veins. He has no venous ulcer DVT or skin changes. The pain is not consistent with varicose veins however get venous reflux ultrasound. Recommended compression stockings leg elevation exercise [facility] 12-20-2024 Miscellaneous Notes Associate d Problem(s): Leg pain, anterior, right Recommend evaluation by foot and ankle orthopedic surgeon Associated Problem(s): Varicose veins of right lower extremity with edema He has some varicose veins. He has no venous ulcer DVT or skin changes. The pain is not consistent with varicose veins however get venous reflux ultrasound. Recommended compression stockings leg elevation exercise documented in this encounter [facility] 12-20-2024 History of Presen t illness Narrative Images from the original note were not included. To: SHARATH MUJICA MD HPI: Romero Parikh is a 54 y.o. male with right ankle pain. He was on varicose veins. Does not remember specific trauma. The pain location and distribution seems to be musculoskeletal. He was sent to us because he has a associated mild edema and varicose veins.. Review of Systems: Review of Systems Constitutional: Negative. HENT: Negative. Respiratory: Negative. Cardiovascular: Negative. Gastrointestinal: Negative. Endocrine: Negative. Genitourinary: Negative. Musculoskeletal: Negative. Skin: Negative. Neurological: Negative. Hematological: Negative. Medications: Current Outpatient Medications on File Prior to Visit Medication Sig Dispense Refill allopurinoL (ZYLOPRIM) 100 mg tablet Take 1 tablet (100 mg total) by mouth in the morning. TAKE 1 TABLET BY MOUTH EVERY DAY FOR 30 DAYS. lisinopriL (PRINIVIL,ZESTRIL) 10 mg tablet Take 1 tablet (10 mg total) by mouth in the morning. TAKE 1 TABLET BY MOUTH EVERY DAY FOR 30 DAYS. meloxicam (MOBIC) 15 mg tablet Take 1 tablet (15 mg total) by mouth in the morning. TAKE 1 TABLET BY MOUTH EVERY DAY FOR 30 DAYS. No current facility-administered medications on file prior to visit. Past Medical History: No past medical history on file. Past Surgical History: No past surgical history on file. Social and Family History: Social History Socioeconomic History Marital status: Unknown Spouse name: Not on file Number of children: Not on file Years of education: Not on file Highest education level: Not on file Occupational History Not on file Tobacco Use Smoking status: Not on file Smokeless tobacco: Not on file Substance and Sexual Activity Alcohol use: Not on file Drug use: Not on file Sexual activity: Not on file Other Topics Concern Not on file Social History Narrative Not on file Social Drivers of Health Financial Resource Strain: Not on file Food Insecurity: Not on file Transportation Needs: Not on file Physical Activity: Not on file Stress: Not on file Social Connections: Not on file Interpersonal Safety: Not on file Housing Instability: Not on file No family history on file. Recent Labs: Recent and relative labs were reviewed and interpreted and contributed to the assessment and plan below. Vitals: BP 147/90 (BP Site: Right Arm, BP Postition: Sitting, BP CUFF SIZE: M (9-13 inches)) Pulse 62 Ht 177.8 cm (5' 10 ) Wt 102.1 kg (225 lb) BMI 32.28 kg/m Body mass index is 32.28 kg/m . Physical Exam: Physical Exam Constitutional: Appearance: Normal appearance. HENT: Head: Normocephalic and atraumatic. Mouth/Throat: Mouth: Mucous membranes are moist. Eyes: Extraocular Movements: Extraocular movements intact. Pupils: Pupils are equal, round, and reactive to light. Cardiovascular: Rate and Rhythm: Normal rate and regular rhythm. Pulmonary: Effort: Pulmonary effort is normal. Breath sounds: Normal breath sounds. Abdominal: General: Abdomen is flat. Bowel sounds are normal. Palpations: Abdomen is soft. Musculoskeletal: General: Normal range of motion. Cervical back: Normal range of motion. Skin: General: Skin is warm and dry. Neurological: General: No focal deficit present. Mental Status: He is alert and oriented to person, place, and time. Mental status is at baseline. Psychiatric: Mood and Affect: Mood normal. Behavior: Behavior normal. Thought Content: Thought content normal. Judgment: Judgment normal. Recent testing: Assessment and Plan: Problem List Varicose veins of right lower extremity with edema - Primary Current Assessment & Plan He has some varicose veins. He has no venous ulcer DVT or skin changes. The pain is not consistent with varicose veins however get venous reflux ultrasound. Recommended compression stockings leg elevation exercise Relevant Orders Vas venous duplex insufficiency lwr bi Leg pain, anterior, right Current Assessment & Plan Recommend evaluation by foot and ankle orthopedic surgeon Relevant Orders Vas venous duplex insufficiency lwr bi Romero was seen today for new patient. Diagnoses and all orders for this visit: Varicose veins of right lower extremity with edema - Vas venous duplex insufficiency lwr bi; Future [facility], [facility] [place], [place] - Vas venous duplex insufficiency lwr bi; Future Jason Cortez MD, MORTEZA, RPVI, FSVS, FACS [facility] This note was created with the assistance of a speech recognition program. While intending to generate a timely document that accurately reflects the content of the visit, no guarantee can be provided that every grammatical or spelling mistake has been or will be identified or corrected. Thank you for your understanding. documented in this encounter [facility] Evaluation note Diagnosis Varicose veins of right lower extremity with edema- Primary Leg pain, anterior, right documented in this encounter [facility] Diagnosis Varicose veins of right lower extremity with edema- Primary Leg pain, anterior, right Varicose veins of right lower extremity with edema- Primary Chronic pain of right ankle documented [facility] Diagnosis Corneal ulcer of left eye- Primary Keratitis, herpetic Herpes simplex disciform keratitis [facility] Diagnosis Corneal ulcer of left eye- Primary Keratitis, herpetic Herpes simplex disciform keratitis documented in this encounter [facility] HealthcareInstructionsNot on filedocumented in this encounterProMedior Health SystemInstructionsNot on filedocumented in this encounterPro[facility] Summary Purpose Family History No Family History Records FoundNo Family History Records FoundNo Family History Records FoundNo Family History Records Found Advance Directives No Advanced Directives Records FoundNo Advanced Directives Records FoundNo Advanced Directives Records FoundNo Advanced Directives Records Found Additional Source Comments (unrecognized sect ion and content) No Status Records FoundNo Status Records FoundNo Status Records FoundNo Status Records Found INFORMATION SOURCE (unrecogn ized section and content) DATE CREATED AUTHOR 02/10/2022 [facility] DATE CREATED AUTHOR AUTHOR'S ORGANIZ ATION 01/02/2025 [facility] DATE CREATED AUTHOR AUTHOR'S ORGANIZ ATION 01/26/2025 [facility] DATE CREATED AUTHOR AUTHOR'S ORGANIZ ATION 03/29/2025 [facility] Reason for Visit (unrecogniz ed section and content) Reason Comments New Patient Leg pain, anterior, rightFlares up to point can hardly walk Flare ups every 2 to 3 months Specialty Diagnoses / Procedures [facility] To Contact Vascular Surgery Diagnoses Leg pain, anterior, right Sharath Mujica MD [address] [place] [address] Phone: tel:[phone] fax: [facility] [place] [address] [place] [address] Phone: tel:[phone] fax: Referral ID Status Reason Start Date Expiration Date Visits Requested Visits Authorized [id number] Pending Review Specialty Services Required 11/28/2024 11/28/2025 1 1 Reason Onset Date Comments Med Refill 03/22/2025 Reason Comments Corneal Ulcer Reason Comments Follow-up Care Teams (unrecognized sec tion and content) Junior Financial Analyst Relationship Specialty Start Date End Date Sharath Mujica MD [address] [place] [facility] [address] PCP - General Family Medicine 11/29/24 Junior Financial Analyst Relationship Specialty Start Date End Date Sharath Mujica MD [address] [place] [facility] [address] PCP - General Family Medicine 11/29/24 Junior Financial Analyst Relationship Specialty Start Date End Date Sharath Mujica MD [address] [facility] [place] [address] PCP - General Family Medicine 03/22/25 Junior Financial Analyst Relationship Specialty Start Date End Date Sharath Mujica MD [address] [facility] [place] [address] PCP - General Family Medicine 03/22/25 Junior Financial Analyst Relationship Specialty Start Date End Date Sharath Mujica MD [address] [facility] [place] [address] PCP - General Family Medicine 03/22/25 Junior Financial Analyst Relationship Specialty Start Date End Date Sharath Mujica MD [address] [facility] [place] [address] PCP - General Family Medicine 03/22/25 Junior Financial Analyst Relationship Specialty Start Date End Date Sharath Mujica MD [address] [facility] [place] [address] PCP - General Family Medicine 03/22/25 FOR RECORDS PERTAINING TO PATIENTS WHO ARE [...] BE BASED ON THE PRIMARY CLINICAL RECORDS. [facility]. provides no warranty or guarantee of the accuracy or completeness of information in this document.
[2025-04-02 10:00] LABS: Alanine Aminotransferase 41 U/L (16-63); Albumin Globulin Ratio 1.1; Albumin Level 4.0 g/dL (3.4-5.0); Alkaline Phosphatase 71 U/L (46-116); Anion Gap 12.5; Aspartate Amino Transferase 22 U/L (15-37); Blood Urea Nitrogen 16.0 mg/dL (7.0-18.0); Calcium 9.2 mg/dL (8.5-10.1); Carbon Dioxide 24.3 mmol/L (21.0-32.0); Chloride 105 mmol/L (98-107); Cholesterol 190 mg/dL (<=200); Estimated GFR (African America >60 (>=60 mL/min/1.73m^2); Estimated GFR (Non-African Ame >60 (>=60 mL/min/1.73m^2); Free T3 3.04 pg/mL (2.18-3.98); Globulin 3.8 g/dL; Glucose 102 mg/dL (74-106); HDL Cholesterol 41 mg/dL (40-60); Potassium 3.8 mmol/L (3.5-5.1); Sodium 138 mmol/L (136-145); Thyroid Stimulating Hormone 1.066 uIU/mL (0.358-3.740); Total Protein 7.8 g/dL (6.4-8.2); Triglycerides 66 mg/dL (<=150); Uric Acid 7.2 mg/dL (3.5-7.2); VLDL CHOLESTEROL 13.2 mg/dL
[2025-04-02 10:08] LABS: Hematocrit 42.8 % (42.0-54.0); Hemoglobin 14.6 g/dL (14.0-18.0); Immature Granulocytes Abs Auto 0.02 10^3/uL (0.00-0.03); Immature Granulocytes Pct Auto 0.3 % (0.0-0.5); Lymphocytes Absolute Auto 1.8 10^3/uL (1.2-3.8); Mean Corpuscular HGB Conc 34.1 g/dL (29.9-35.2); Mean Corpuscular Hemoglobin 29.1 pg (25.9-34.0); Mean Corpuscular Volume 85.4 fL (80.0-94.0); Platelet Count 190 10^3/uL (150-450); Red Blood Count 5.01 10^6/uL (4.70-6.10); White Blood Count 7.7 10^3/uL (4.0-11.0)
== END 2025-04-02 08:52 | disposition home or self-care (01) ==
LOC: LAB 08:54
PROVIDERS: PCP Family Medicine; Visit Provider Family Medicine
DX: Z00.00 Encounter for general adult medical examination without abnormal findings (principal); Z12.5 Encounter for screening for malignant neoplasm of prostate
CPT/HCPCS: 36415; 80053; 80061; 83036; 83525; 84436; 84443; 84481; 84550; 85025; G0103; G0328

== ENCOUNTER 2025-04-15 17:30 | Outpatient (REF) | payer OTHER, SELFPAY ==
--- OUTSIDE RECORDS SUMMARY | 2025-04-02 04:00 | XMS_ITS ---
Author Organization [facility] in [place] Address [address] [place] [address] Care Team Providers Care Pizzamaker Name Role Phone Eron Mujica Primary Care Provider [phone] Allergies Allergen (clinical drug ingredient) Drug/Non Drug Allergy documented on EMR Reaction Allergy Type Onset Date Status sulfamethoxazole / trimethoprim Bactrim rash Drug Allergy Active REASON FOR VISIT ANNUAL Medications Medication SIG (Take, Route, Frequency, Duration) Notes Start Date End Date Status Probiotic - as directed Orally ActiveLisinopril 20 MG1 tablet Orally Once a day; Duration: 90 daysActive Erythromycin 5 MG/GMOphthalmic; Duration: 7 DaysActiveMoxifloxacin HCl 0.5 % PLACE 1 DROP INTO THE LEFT EYE EVERY 2 HOURS Ophthalmic; Duration: 14 DaysActive Meloxicam 15 MG1 tablet Orally Once a day; Duration: 30 daysPRNActiveAcyclovir 400 MGOral; Duration: 12 DaysActiveAllopurinol 100 MG1 tablet Orally Once a day; Duration: 30 daysActiveAllegra Allergy 180 MG1 tablet Swallow whole with water; do not take with fruit juices. Orally Once a dayActive Immunizations Vaccine Route Administration Date Status Comme nts Flu, Flucelvax (62741) 6 mos and older, single-dose syringe (9010-5209) IM Intramuscular 04/02/2025 Administered Social History Tobacco Use: Social History Observation Description Date Details (start date - stop date) Never Smoker NA - NA Tobacco Use/Smoking Question Answer Notes Patient is a nonsmoker AUDIT-C (Standard) Question Answer Notes Did you have a drink containing alcohol in the p ast year? Yes How often did you have a drink containing alcohol in the past year?Monthly or less (1 point)How many drinks did you have on a typical day when you were drinking in the past year?1 or 2 drinks (0 point)How often did you have six or more drinks on one occasion in the past year?Never (0 point)Points1 InterpretationNegative Vital Signs Weight 225.8 lbs 04/02/2025 Height 70 in 04/02/2025 Blood pressure systolic 142 mm Hg 04/02/20 25 Blood pressure diastolic 98 mm Hg 025 BMI 32.4 kg/m2 04/02/2025 Encounters Encounter Location Date Provider Diagnosis [facility] [address] [place] [address] 04/02/2025 Eron Mujica Well adult Z00.00 an d Encounter for immunization Z23 Assessments Encounter Date Diagnosis (ICD Code) Assessment Notes Treatment Notes Treatment Clinical Notes Section Notes 04/02/2025 Well adult (ICD-10 - Z00.00) 04/02/2025Encounter for immunization (ICD-10 - Z23) Plan Of Treatment Medication Medication Name Sig Start Date Stop Date Notes Lisinopril 20 MG 1 tablet Orally Once a day; Dur ation: 90 days Pending Test Test Name Order Date HEMOGLOBIN A1C (GLYCO) 04/02/2025 INSULIN, TOTAL 04/02/2025 LIPID PANEL (CHOL/TRIG/HDL/LDL) 04/02/20 25 URIC ACID 04/02/2025 STOOL OCCULT BLOOD 04/02/2025 THYROID PANEL (T4/TSH/FREE T3) PSA, SCREENING 04/02/2025 CMP (COMP MET ALBERTS) w/eGFR CKD-EPI 2024 CBC WITH DIFF 04/02/2025 Progress Notes * Molina SCOTT EDOB:1970 (55 yo M)Acc No.[id number]:04/02/2025 Progress Note Patient: Molina TAMEZ :?Mauro Mujica ([facility]), MDDOB:1970???Age: 55 Y???Sex:MaleDate:04/02/2025Phone:[phone]:[facility]-[id number] In:08:01 AM Tika Out:08:35 AM EST Subjective: * Chief Complaints: * A NNUAL * HPI: ???General:? Gout flare up a month ago Left eye ulcer - getting drops HTN - stable at home. * ROS: ???EENT:?hearing changes?denies.?visual changes?denies. non-healing mouth sores?denies.?swollen glands or neck lumps?denies.?hoarseness?denies.?sore throat?denies.?difficulty swallowing?denies.?nose bleeds?denies.?nasal congestion?denies.?ear ache?denies.?ear discharge denies.?ringing in ears?denies.?light sensitivity?denies.?eye pain?denies.?blurring?denies.?eye irritation?denies.?double vision?denies. vision loss?denies.?General/Constitutional:?Sweats:?Denies.?Fatigue?denies.?Sleep proble ms?denies.?Anorexia?denies.?Malaise?denies.?Weight loss?denies. Fatigue or Weakness?denies.?Fever or Chills?denies.?Cardiovascular:?Shortness of Breath w/lying flat?denies.?Lightheadedne ss/dizziness?denies.?Chest tightness/ heavy pressure?denies.?Swelling of legs, a nkles, or feet?denies.?Waking up with shortness of breath?denies.?Chest pain&#16 0;denies.?Palpitations?denies.?Weight gain?denies.?Respiratory:?Chronic or frequent cough?denies.?Coughing up blood&#1 60;denies.?Difficulty breathing?denies.?Productive cough?denies.?Snoring&#1 60;denies.?Shortness of breath that awakens from sleep (PND)?denies.?Chest pain? denies.?Sputum production?denies.?Wheezing?denies.?Musculoskeletal:?Joint pain?denies.?Joint Fluid?denies.?Backpain?denies.?Knee pain?denies.?Neck pain?denies.?Joint Stiffness?denies.?Muscle cramps?denies.?Weakness of muscles?denies.?Arthritis?denies.?Muscle aches?denies.?Pain in shoulder(s)?denies.?Swollen joints?denies.? * Active Problem List M10.9 Gout Modified On:03/09/2023U Status:qubisappxQ65.2Seasonal allergic rhinitis Modified On:03/09/2023 Status:cxpelxlmxA33.00Well adult Modified On:03/14/2023 Status:ejlpljfiaP53.579Ankle pain Modified On:05/23/2023 Status:cngdtbmvfD37.011AStrain of right Achilles tendon, initial encounter Modified On:06/14/2023 Status:gvtyvwdghH97.88Other specified disorders of synovium and tendon, other site Modified On:06/14/2023 Status:vnnfmeuubN18.071Primary osteoarthritis, right ankle and foot Modified On:06/30/2023 Status:dzmrlxsuqB9Y.0710Idiopathic chronic gout, right ankle and foot, without tophus (tophi) Modified On:06/30/2023U Status:zmuatgwbcQ50.571Contracture, right ankle Modified On:06/30/2023U Status:cmouyqdrjV54.32Axillary mass, left Modified On:04/12/2024U Status:yrtexktjuE00.604Leg pain, anterior, right Modified On:10/30/2024U Status:confirmed * Medical History: * Surgical History: C olonoscopy * Hospitalization/Major Diagno stic Procedure: s ee above * Family History: F ather: alive, hyperlipidemia, skin cancer, diagnosed with Cancer. M other: alive. B rother(s): alive. S on(s): alive. D aughter(s): alive. 2 brother(s) - healthy. 1 son(s) , 1 daughter(s) - healthy. . * Social History: ???Tobacco Use:?Tobacco Use/Smoking?Patient is a?nonsmoker ???Drug/Alcohol:?AUDIT-C (Standard)?Did you have a drink containing alcohol in the past year??Yes ?How often did you have a drink containing alcohol in the past year?? Monthly or less (1 point) ?How many drinks did you have on a typical daywhen you were drinking in the past year??1 or 2 drinks (0 point) ?How often did you have six or more drinks on one occasion in the past year??Never (0 point) ?Points?1 ?Interpretation?Negative * Medications: T akingAcyclovir 400 MG Tablet Oral Sarahi Allergy(Fexofenadine HCl) 180 MG Tablet 1 tablet Swallow whole with water; do not take with fruit juices. Orally Once a day Allopurinol 100 MG Tablet 1 tablet Orally Once a day Erythromycin 5 MG/GM Ointment Ophthalmic Lisinopril 10 MG Tablet 1 tablet Orally Once a day Meloxicam 15 MG Tablet 1 tablet Orally Once a day , Notes to Pharmacist: PRNMoxifloxacin HCl 0.5 % Solution PLACE 1 DROP INTO THE LEFT EYE EVERY 2 HOURS Ophthalmic Probiotic - Tablet Delayed Release as directed Orally Medication List reviewed and reconciled with the patientTaking Acyclovir 400 MG Tablet Oral Taking Sarahi Allergy(Fexofenadine HCl) 180 MG Tablet 1 tablet Swallow whole with water; do not take with fruit juices. Orally Once a day Taking Allopurinol 100 MG Tablet 1 tablet Orally Once a day Taking Erythromycin 5 MG/GM Ointment Ophthalmic Taking Lisinopril 10 MG Tablet 1 tablet Orally Once a day Taking Meloxicam 15 MG Tablet 1 tablet Orally Once a day , Notes to Pharmacist: PRNTaking Moxifloxacin HCl 0.5 % Solution PLACE 1 DROP INTO THE LEFT EYE EVERY 2 HOURS Ophthalmic Taking Probiotic - Tablet Delayed Release as directed Orally Medication List reviewed and reconciled with the patient * Allergies: B actrim: uyen[Allergies Verified] Objective: * Vitals: W t:225.8lbs, Ht: 70 in, BP:142/98mm Hg, BMI:32.4Index, Ht-cm: 177.8 cm, Wt-k.42 kg. * Examination: ???Physical Exam: ?GENERAL:?well developed, well nourished, in no acute distress.?HEAD:?normocephalic/atraumatic.?EYES:?pupils equal, round and reactive to light, conjunctivae and sclerae normal.?EARS:?no deformity or lesion of external ear, canals and TM appear normal bilaterally, TM's intact, not inflamed with normal light reflex, hearing grossly normal to conversational speech.?NOSE:?no deformity, discharge, inflammation, or lesions. ?MOUTH:?mucous membranes moist, normal oropharynx and posterior pharynx without lesions or exudates, tongue normal, dentition normal.?NECK:?neck supple, no masses or palpable cervical nodes, trachea midline, thyroid without nodules, masses, tenderness, or enlargement.?CHEST:?no chest wall deformity, no chest wall tenderness. ?LUNGS:?normal respiratory effort and clear to auscultation, no wheezes, rales, or rhonchi, good air exchange.?CARDIO:?regular rate and rhythm, normal S1 and S2, nor murmur, rub, or gallop.?PULSES:?normal capillary refill.?ABDOMEN:?soft, non-distended, non-tender, no masses.?MUSCULOSKELETAL:?no deformity or scoliosis noted, normal range of motion, joints normal, no erythema, edema, effusion, or ecchymosis.?EXTREMITY:?no clubbing, cyanosis, edema, or deformity withnormal ROM in both upper and lower bilateral extremities.?NEUROLOGIC:?grossly normal.?SKIN:?no rashes, ulcerations, or suspicious lesions.?LYMPH NODES:?no cervical adenopathy, nodes normal.?MENTAL STATUS:?alert and oriented x3, normal mood and affect.?Prostate: ?Prostate Symmetry?Symmetrical Lobes.?Prostate Tenderness?Left lobe no tenderness, Right Lobe notenderness.?Prostate Consistency?Right lobe normal consistency, Left lobe normal consistency.?Prostate Size?20 grams.?Prostate Nodule?No prostate Nodule.? Assessment: * Assessment: 1.?Well adult - Z00.00 (Primary)???2.?Encounter for immunization - Z23 ?? Plan: * Treatment: Refill Lisinopril Tablet, 20 MG, 1 tablet, Orally, Once a day, 90 days, 90 Tablet, Refills 3.?LAB: HEMOGLOBIN A1C (GLYCO) ?LAB: INSULIN, TOTAL ?LAB: LIPID PANEL (CHOL/TRIG/HDL/LDL) ?LAB: URIC ACID ?LAB: STOOL OCCULT BLOOD ?LAB: THYROID PANEL (T4/TSH/FREE T3) ?LAB: PSA, SCREENING ?LAB: CMP (COMP MET ALBERTS) w/eGFR CKD-EPI ?LAB: CBC WITH DIFF * Immunizations: Flu, Flucelvax (99980) 6 mos and older, single-dose syringe (3643-5799) : 0.5 mL (Route: Intramuscular) given by ELIZABETH Perez on Left Deltoid (Encounter for immunization) * Procedure Codes: 9 0661 FLU VACCINE-INTRMUSC [id number] IMMUNIZATION ADMIN. 1 [id number] DIAST BP > OR = 90 MM [id number] SYST BP > OR = 140 MM HG * Preventive Medicine: ??Screenings/Counseling:?BMI ACTION PLAN?Above Normal BMI Follow-up?Dietary management education, guidance, and counseling * * Sign off status: CompletedVisit Status:?CHK (Check Out) true * Provider: Dawna Mujica ([facility])MD Date: Generated for Printing/Faxing/eTransmitting on:?04/16/2025 08:11 AM EDT History and Physical Notes * HPI (History of Present Illness) CategorySub-CategoryDetailNotesCategory NotesGeneral Gout flare up a month ago Left eye ulcer - getting drops HTN - stable at home Examination CategorySub-CategoryDetailNotesCategory NotesProstateProstate Symmetry Symmetrical LobesProstate TendernessLeft lobe no tenderness, Right Lobe no tendernessProstate ConsistencyRight lobe normal consistency, Left lobe normal consistencyProstate Size20 gramsProstate NoduleNo prostate NodulePhysical Exam GENERAL:well developed, well nourished, in no acute distressHEAD: normocephalic/atraumaticEYES:pupils equal, round and reactive to light, conjunctivae and sclerae normalEARS:no deformity or lesion of external ear, canals and TM appear normal bilaterally, TM's intact, not inflamed with normal light reflex, hearing grossly normal to conversational speechNOSE:no deformity, discharge, inflammation, or lesionsMOUTH:mucous membranes moist, normal oropharynx and posterior pharynx without lesions or exudates, tonguenormal, dentition normalNECK:neck supple, no masses or palpable cervical nodes, trachea midline, thyroid without nodules, masses, tenderness, or enlargementCHEST:no chest wall deformity, no chest wall tendernessLUNGS:normal respiratory effort and clear to auscultation, no wheezes, rales, or rhonchi, good air exchange CARDIO:regular rate and rhythm, normal S1 and S2, nor murmur, rub, or gallop PULSES:normal capillary refillABDOMEN:soft, non-distended, non-tender, no masses RECTAL:MUSCULOSKELETAL:no deformity or scoliosis noted, normal range of motion, joints normal, no erythema, edema, effusion, or ecchymosisEXTREMITY:no clubbing, cyanosis, edema, or deformity with normal ROM in both upper and lower bilateral extremitiesNEUROLOGIC:grossly normalSKIN:no rashes, ulcerations, or suspicious lesionsLYMPH NODES:no cervical adenopathy, nodes normalMENTAL STATUS:alert and oriented x3, normal mood and affect
--- OUTSIDE RECORDS SUMMARY | 2025-04-02 12:19 | XMS_ITS ---
Author Organization [facility] Address [address] [place] [address] Care Team Providers Care Specimen Collector Name Role Phone Eron Mujica Primary Care Provider REASON FOR VISIT occult stool Problems Problem Type SNOMED Code ICD Code Onset Dates Problem Status W/U Status Risk Notes Problem Irritable bowel syndrome (51673448) Irrit able bowel disease (K58.9) Activeconfirmed Encounters Encounter Location Date Provider Diagnosis [facility] [address] [place] [address] 04/02/2025 Eron Mujica Irritable bowel disease K58.9 Assessments Encounter Date Diagnosis (ICD Code) Assessment Notes Treatment Notes Treatment Clinical Notes Section Notes 04/02/2025 Irritable bowel disease (ICD-10 - K58.9) Plan Of Treatment Pending Test Test Name Order Date FECAL OCCULT BLOOD 04/02/2025 Progress Notes * Molina SCOTT EDOB:1970 (55 yo M)Acc No.[id number]:04/02/2025 Patient:?Molina SCOTT :1970???Age:55 Y???Sex:MalePhone:[phone] Address:[facility] [place] [address] Subjective: * Chief Complaints: * O ccult stool * Medical History: * Surgical History: * Hospitalization/Major Diagno stic Procedure: * Medications: Objective: * Vitals: * Physical Examination: ??? Assessment: * Assessment: 1.?Irritable bowel disease - K58.9 (Primary)??? Plan: * Treatment: ?LAB: FECAL OCCULT BLOOD * Procedure Codes: * true * Date:?Generated for Printing/Faxing/eTransmitting on:?04/16/2025 08:10 AM EDT
--- OUTSIDE RECORDS SUMMARY | 2025-04-16 08:10 | XMS_ITS | Patient Health Record ---
Author Organization [facility] in [place] Address [address] [place] [address] Care Team Providers Care Security System Technician Name Role Phone Eron Mujica Primary Care Provider Chana Rosa [phone] Allergies Allergen (clinical drug ingredient) Drug/Non Drug Allergy documented on EMR Reaction Allergy Type Onset Date Status sulfamethoxazole / trimethoprim Bactrim rash Drug Allergy Active Results Component Value Reference Range Notes US extremity nonvascular LT Reviewed date:04/16/2024 10:07:44 PM Interpretation: Performing Lab: Notes/Report: Source Facility: [place] [address] Ultrasound Report Signed Patient: ROMERO PARIKH MR#: [id number] : 1970 Acct:[id number] Age/Sex: 54 / M ADM Date: 04/16/24 Loc: US Attending Dr: Sharath Mujica M.D. Ordering Physician: Sharath Mujica M.D. Date of Service: 04/16/24 Procedure(s): US extremity nonvascular LT Accession Number(s): [id number] cc: Sharath Mujica M.D. [place] [id number] Patient Name: ROMERO PARIKH MRN: [id number] date: 1970 Sex: M Assigned Patient Location: US Current Patient Location: US Accession/Order Number: [id number] Exam Date: 04/16/2024 09:58 Report Date: 04/16/2024 15:15 At the request of: SHARATH MUJICA Procedure: US extremity nonvascular LT EXAM: US [...] area of interest. Electronically authenticated by: Finn SAPP Date: 04/16/2024 15:15 Dictated By: Finn Sapp M.D. Signed By: 04/16/248 DD/ TD/TT: Geophysics Scientist: CT chest wo con Reviewed date:05/06/2024 02:27:21 PM Interpretation: Performing Lab: Notes/Report: Source Facility: [place] [address] CT Scan Report Signed Patient: ROMERO PARIKH MR#: [id number] : 1970 Acct:[id number] Age/Sex: 54 / M ADM Date: 05/02/24 Loc: CT Attending Dr: CHANA ROSA Ordering Physician: CHANA ROSA Date of Service: 05/02/24 Procedure(s): CT chest wo con Accession Number(s): [id number] cc: Sharath Mujica M.D. [place] [address] Patient Name: ROMERO PARIKH MRN: [id number] date: 1970 Sex: M Assigned Patient Location: CT Current Patient Location: Accession/Order Number: [id number] Exam Date: 05/02/2024 08:10 Report Date: 05/03/2024 05:59 At the request of: CHANA ROSA Procedure: CT chest wo con EXAMINATION: CT [...] Signed By: 05/03/24 0601 DD/ 0559 TD/TT: Geophysics Scientist: CBC AUTO DIFF Reviewed date:04/02/2025 02:20:21 PM Interpretation: Performing Lab: Notes/Report: [facility] , White Blood Count 7.7 4.0-11.0 10 3/uL Red Blood Count5.014.70-6.10 10 6/hOZcxeyavcyw15.614.0-18.0 g/kLAylsmrhysl90.8 42.0-54.0 %Mean Corpuscular Zbpktr61.480.0-94.0 fLMean Corpuscular Hemoglobin 29.125.9-34.0 pgMean Corpuscular HGB Conc34.129.9-35.2 g/dLRed Cell Distribution Width13.211.0-15.0 %Platelet Oxptq960273-295 10 3/uLMean Platelet Riiubj18.49.5- 13.5 fLNeutrophils Percent Auto60.643.0-75.0 %Lymphocytes Percent Auto23.920.5- 60.0 %Monocytes Percent Auto10.21.7-12.0 %Eosinophils Percent Auto4.00.9-7.0 % Basophils Percent Auto1.00.2-2.0 %Immature Granulocytes Pct Auto0.30.0-0.5 % Neutrophils Absolute Auto4.71.4-6.5 10 3/uLLymphocytes Absolute Auto1.81.2-3.8 10 3/uLMonocytes Absolute Auto0.80.3-0.8 10 3/uLEosinophils Absolute Auto0.30.0- 0.7 10 3/uLBasophils Absolute Auto0.10.0-0.1 10 3/uLImmature Granulocytes Abs Auto0.020.00-0.03 10 3/uLPerforming Lab:see note - [facility] FREE T3 Reviewed date:04/02/2025 02:20:21 PM Interpretation: Performing Lab: Notes/Report: [facility] ,Free T33.042.18-3.98 pg/mLPerforming Lab:[facility] GLYCOHEMOGLOBIN A1C Reviewed date:04/02/2025 02:20:21 PM Interpretation: Performing Lab: Notes/Report: [facility] ,Glycohemoglobin A1C6.24.5-6.2 % ADA RECOMMENDED LIMIT 4.0 - 6.0 ADA THERAPEUTIC TARGET < 7.0 ACTION SUGGESTED > 7.0 Estimated Average Qeidlgc624Nscgnbqyhi Lab:see note - [facility] INSULIN Reviewed date:04/03/2025 07:50:43 PM Interpretation: Performing Lab: Notes/Report: [facility] ,Fyqdksn66.32.6-24.9 uIU/mL Performed at: [facility] Lab[address] [id number] Tax Intern: Colten Herbert PhD, Phone: [phone] Performing Lab:see [facility]NEW [facility] LBLIPID PROFILE Reviewed date:04/02/2025 02:20:21 PM Interpretation: Performing Lab: Notes/Report: [facility] ,Zvxbkgiayjtem91<=150 mg/oCCbjxdyzssnd447<=200 mg/dLHDL Wyysrfrghfo3136-43 mg/dL > or =60 mg/dl - LOW CARDIOVASCULAR RISK <40 mg/dl - HIGH CARDIOVASCULAR RISK LDL Cholesterol Xdoweoukji722.8 <100 mg/dl OPTIMAL 100-129 mg/dl NEAR OR ABOVE OPTIMAL 130-159 mg/dl BORDERLINE HIGH 160-189 mg/dl HIGH >190 mg/dl VERY HIGH VLDL LYBYYZCCUAU87.2Chol HDL Ratio4.6 3.3 - 4.4 LOW RISK 4.4 - 7.1 AVERAGE RISK 7.1 - 11.0 MODERATE RISK >11.0 HIGH RISK Performing Lab:see noteML - [facility] LBPROF 14(COMP METB) Reviewed date:04/02/2025 02:20:21 PM Interpretation: Performing Lab: Notes/Report: [facility] ,Zyulgr904172-021 mmol/LPotassium3.83.5-5.1 mmol/YCczzhrkc54186-725 mmol/LCarbon Ykyubgw92.321.0-32.0 mmol/LAnion Gap12.4Foevydp57668-034 mg/dLBlood Urea Bhkcgimm92.07.0-18.0 mg/dLCreatinine1.020.70-1.30 mg/dLEstimated GFR ( Sheree>60>=60 mL/min/1.73m 2Estimated GFR (Non- Doris>60>=60 mL/min/1.73m 2BUN Creatinine Ratio15.1Oxeexdr3.28.5-10.1 mg/dLBilirubin Total0.80.2-1.0 mg/dL Aspartate Amino Elnwyvizedl1072-18 U/LAlanine Cjhbhhxodaepnqnd7135-19 U/L Alkaline Kpftmmbtceb6342-637 U/LTotal Protein7.86.4-8.2 g/dLAlbumin Level4.03.4- 5.0 g/dLGlobulin3.8Albumin Globulin Ratio1.1Performing Lab:see noteML - [facility] LBPSA SCREENING Reviewed date:04/02/2025 02:20:21 PM Interpretation: Performing Lab: Notes/Report: [facility] ,Prostate Specific Antigen Scrn0.85<=4.00 ng/mLPerforming Lab:see noteML - [facility] LBT4 Reviewed date:04/02/2025 02:20:21 PM Interpretation: Performing Lab: Notes/Report: [facility] ,T4 Thyroxine8.004.50-12.10 ug/dLPerforming Lab:see [facility] LBTSH Reviewed date:04/02/2025 02:20:21 PM Interpretation: Performing Lab: Notes/Report: [facility] ,Thyroid Stimulating Hormone1.0660.358-3.740 uIU/mLPerforming Lab:see [facility] hospital - [facility] LBURIC ACID SERUM Reviewed date:04/02/2025 02:20:21 PM Interpretation: Performing Lab: Notes/Report: [facility] ,Uric Acid7.23.5-7.2 mg/dLPerforming Lab:see [facility] LB Occult Blood* Reviewed date:04/02/2025 04:20:26 PM Interpretation: Performing Lab: Notes/Report: [facility] ,Occult BloodPositivePerforming Lab:see [facility] LBCA segmental UE or LE CHIOMA Reviewed date:11/24/2024 05:47:05 PM Interpretation: Performing Lab: Notes/Report: Source Facility: [place] [address] Cardiology Report Signed Patient: ROMERO PARIKH MR#: [id number] : 1970 Acct:[id number] Age/Sex: 54 / M ADM Date: 11/22/24 Loc: US Attending Dr: Sharath Mujica M.D. Ordering Physician: Sharath Mujica M.D. Date of Service: 11/22/24 Procedure(s): CA segmental UE or LE CHIOMA Accession Number(s): [id number] cc: Sharath Mujica M.D. 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 Interpretive Statements Summary of the findings: Right leg: MEAGHAN= 1.26; TBI= 0.79. Doppler waveforms demonstrate biphasic flow at the posterior tibial and dorsalis pedis arteries. Left leg: MEAGHAN= 1.29; TBI= 0.57. Doppler waveforms demonstrate multiphasic flow at the posterior tibial and dorsalis pedis arteries. Segmental pressures: Segmental pressures are normal bilaterally. Pulse volume recordings: PVRs at the high thigh, below knee, and ankle levels show normal waveforms. Conclusion: Right and left ankle-brachial indices are suggestive of normal overall arterial flow at rest. Toe-brachial indices are suggestive of left sided PAD. Segmental pressures show no segmental disease. Pulse volume recordings indicate good overall resting arterial flow. Overall grossly normal resting physiologic examination. Electronically Signed On 11-22-2024 20:26:43 EDT by CONNER HSU M.D. Dictated By: CONNER HSU Signed By: 11/22/24202511/22/242025 DD/ 6 TD/TT: Geophysics Scientist: Reason For Referral Diagnosis 1 Leg pain, anterior, right (M79.604) Referral Organization [facility] Medicine Referring Provider First Name Eron Referring Provider Last Name Guanako Referring Provider Speciality Family Med annmarie Referred Provider Jason Cortez Referred Provider Specialty Vascular Roby juan jose Referral Priority Routine Medications Medication SIG (Take, Route, Frequency, Duration) Notes Start Date End Date Status Probiotic - as directed Orally ActiveAcyclovir 400 MGOral; Duration: 12 DaysActiveAllopurinol 100 MG1 tablet Orally Once a day; Duration: 30 daysActiveAllegra Allergy 180 MG1 tablet Swallow whole with water; do not take with fruit juices. Orally Once a dayActive Lisinopril 20 MG1 tablet Orally Once a day; Duration: 90 daysActiveErythromycin 5 MG/GMOphthalmic; Duration: 7 DaysActiveMoxifloxacin HCl 0.5 %PLACE 1 DROP INTO THE LEFT EYE EVERY 2 HOURS Ophthalmic; Duration: 14 DaysActiveMeloxicam 15 MG1 tablet Orally Once a day; Duration: 30 daysPRNActive Immunizations Vaccine Route Administration Date Status Comme nts Flu, Fluad (81214) 65 yrs and older, single-dose syringe () IM Intramuscular 04/12/2024 Administered Flu, Flucelvax () (71051) 6 mos and older, multi-dose vialIM Jufuiydjcqjuq00/25/2023dministeredFlu, Flucelvax (56376) 6 mos and older, single-dose syringe (3776-3109)IM Sazumwdeccygm01/14/2025dministered Social History Tobacco Use: Social History Observation Description Date Details (start date - stop date) Never Smoker NA - NA Tobacco Use/Smoking Question Answer Notes Patient is a nonsmoker Alcohol Screen (Audit-C) Question Answer Notes Did you have a drink containing alcohol in the p ast year? No Dgkuhx4YbiqpfnvholjulJatajxluVRDVF-I (Standard) Question Answer Notes Did you have [...] in the past year?Never (0 point)Points1 InterpretationNegative Problems Problem Type SNOMED Code ICD Code Onset Dates Problem Status W/U Status Risk Notes Problem Chronic gouty arthritis (8640782 5) Idiopathic chronic gout, right ankle and foot, without tophus (tophi) (M1A.0710) ActiveconfirmedProblemLocalized, primary osteoarthritis of the ankle and/or foot (417982311)Primary osteoarthritis, right ankle and foot (M19.071)Activeconfirmed ProblemContracture of joint of right ankle (disorder) (851344662068030) Contracture, right ankle (M24.571)ActiveconfirmedProblemOther specified disorders of synovium and tendon, other site (M67.88)ActiveconfirmedProblem Strain of right Achilles tendon (77237844626440965)Strain of right Achilles tendon, initial encounter (S86.011A)ActiveconfirmedProblemGout (82201333)Gout (M10.9)ActiveconfirmedProblemAnkle pain (158425076)Ankle pain (M25.579)Active confirmedProblemWell adult (135986115)Well adult (Z00.00)ActiveconfirmedProblem Seasonal allergic rhinitis (551614474)Seasonal allergic rhinitis (J30.2)Active confirmedProblemMass of left axillary region (finding) (603483886479455524) Axillary mass, left (R22.32)ActiveconfirmedProblemIrritable bowel syndrome (40785118)Irritable bowel disease (K58.9)ActiveconfirmedProblemPain in limb (78127454)Leg pain, anterior, right (M79.604)Activeconfirmed Vital Signs Blood pressure diastolic 98 mm Hg 04/02/2025 Aznfji99 in04/02/2025lood pressure qunqzgdr123 mm Hg04/02/20255471Xuabzt416.8 lbs 04/02/2025BMI32.4 kg/m204/02/2025 Procedures Procedure Date Ordered Date Performed Result Body Sit e MEAGHAN Segmental Pressure Study of Lower Extremity 10/30/2024 N/A Encounters Encounter Location Date Provider Diagnosis [address] [address] 10/30/2024 Eron Mujica Leg pain, anterior, right M79.604 [place] [address] [place] [address] 04/02/2025 Eron Montejoy Well adult Z00.00 an d Encounter for immunization Z23 [place] [address] [place] [address] 04/02/2025 Eron Hoy [facility] [place] [address] 04/02/2025Doug HoyIrritable bowel disease K58.9[facility] [address] [place] [address]/4Pamela CramerAxillary mass, left R22.32[facility] [place] [address]/4Doug [facility] [place] [address]/10/2024Doug [facility] [place] [address]Doug HoyLeg pain, anterior, right M79.604[facility] [place] [address]Doug Hoy Assessments Encounter Date Diagnosis (ICD Code) Assessment Notes Treatment Notes Treatment Clinical Notes Section Notes 10/30/2024 Leg pain, anterior, right (ICD-1 0 - M79.604) 04/02/2025Well adult (ICD-10 - Z00.00)04/16/2024xillary mass, left (ICD-10 - R22.32)11/24/2024Leg pain, anterior, right (ICD-10 - M79.604)04/02/2025Irritable bowel disease (ICD-10 - K58.9)04/02/2025Encounter for immunization (ICD-10 - Z23) Plan Of Treatment Pending Test Test Name Order Date CMP (COMPLETE METABOLIC PANEL) 3 CMP (COMPLETE METABOLIC PANEL) 4 HEMOGLOBIN A1C (GLYCO) 03/14/2023 HEMOGLOBIN A1C (GLYCO) 02/13/2024 HEMOGLOBIN A1C (GLYCO) 04/02/2025 INSULIN, TOTAL 04/02/2025 INSULIN, TOTAL 02/13/2024 INSULIN, TOTAL 03/14/2023 LIPID PANEL (CHOL/TRIG/HDL/LDL) 03/14/20 23 LIPID PANEL (CHOL/TRIG/HDL/LDL) 02/13/20 24 LIPID PANEL (CHOL/TRIG/HDL/LDL) 04/02/20 25 CBC WITH DIFF 02/13/2024 CBC WITH DIFF 03/14/2023 PSA, PROSTATE-SPECIFIC ANTIGEN 3 URIC ACID 03/14/2023 URIC ACID 02/13/2024 URIC ACID 04/02/2025 MRI Ankle RT w/o contrast ([facility]) FECAL OCCULT BLOOD 04/02/2025 PSA, TOTAL 02/13/2024 STOOL OCCULT BLOOD 04/02/2025 SED RATE WESTERGREN 05/23/2023 CT CHEST WO CON 04/16/2024 VC VENOUS REFLUX CHIOMA LMT 10/30/2024 XR ANKLE RT MIN 3 VIEWS 05/23/2023 THYROID PANEL (T4/TSH/FREE T3) 09/25/202 3 THYROID PANEL (T4/TSH/FREE T3) 4 THYROID PANEL (T4/TSH/FREE T3) 5 XR ANKLE RT 2V 05/23/2023 PSA, SCREENING 04/02/2025 MEAGHAN Segmental Pressure Study of Lower Ex tremity 10/30/2024 US AXILLA LT 04/12/2024 CMP (COMP MET ALBERTS) w/eGFR CKD-EPI 2024 CBC WITH DIFF 04/02/2025 Insurance Providers Payer Name Payer Address Payer Phone Subscriber Number Group Number Insured Name Patient Relationship to Insured Coverage Start Date Coverage End Date MMO [employer] [address] [place] [address] [id number] Romero Parikh Self - patient is the insured Medications Administered Medication Instructions Date of Administration Dosage Notes Dexamethasone, 4mg/mL tG74Yzqbsloot Gkoxvnysfnvw05/04/621245 mg60 Medical (General) History Medical History History ICD Code Gout M10.9 Seasonal allergic rhinitis J30.2 Surgical History Surgery Date(Month/Year) Colonoscopy Hospitalization History Reason Date(Month/Year) see above
--- OUTSIDE RECORDS SUMMARY | 2025-04-16 08:11 | XMS_ITS | Clinical Summary ---
Author Organization [employer] tem Address [id number] [address] [place] [address] Care Team Providers Care Crawler Tractor Operator Name Role Phone Mauro Mujica MD Primary Care Provider [phone] Allergies Active AllergyReactionsCriticalityNoted DateCommentsSulfa (Sulfonamide Antibiotics)Rash,CctwuozcCdi46/03/2025 Medications MedicationSigDispense QuantityRefillsLast FilledStart DateEnd DateStatus allopurinoL (ZYLOPRIM) 100 mg tablet Take 1 tablet (100 mg total) by mouth in the morning.5Active meloxicam (MOBIC) 15 mg tablet Take 1 tablet (15 mg total) by mouth daily as needed. PRN5Active lisinopriL (PRINIVIL,ZESTRIL) 10 mg tablet Take 1 tablet (10 mg total) by mouth in the morning.Active Active Problems ProblemNoted DateDiagnosed DateChronic pain of right ankle01/24/2025 Assessment & Plan (01/24/2025 9:56 AM EDT): Gout treatment and podiatry management Varicose veins of right lower extremity with edema12/20/2024 Assessment & Plan (01/24/2025 9:55 AM EDT): Compression therapy and leg elevation Assessment & Plan (12/20/2024 5:11 PM EDT): He has some varicose veins. He has no venous ulcer DVT or skin changes. The pain is not consistent with varicose veins however get venous reflux ultrasound. 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 (Primary Dx); Chronic pain of right ankle01/22/2025Travelfrom Last 3 Months Social History Tobacco UseTypesPacks/DayYears UsedDateSmoking Tobacco: Never AssessedChildcare AnswerDate WyhhndauOsulfnxlaTkvaiwc05/12/2019EmploymentAnswerDate Recorded OjlgbdchfzHbqnfqj85/12/2019Sex and Gender InformationValueDate RecordedSex Assigned at BirthNot on fileLegal KuwAipi6901/23/2015 11:46 AM EDTGender Identity Not on fileSexual OrientationNot on file Last Filed Vital Signs Vital SignReadingTime TakenCommentsBlood Wbcdbjvk912/8201/24/2025 9:29 AM EDT Dntgi067001/24/2025 9:29 AM EDTTemperature--Respiratory Rate--Oxygen Saturation-- Inhaled Oxygen Concentration--Tuvigg554.2 kg (223 lb)01/24/2025 9:29 AM EDT Yziekf834.8 cm (5' 10 )01/24/2025 9:29 AM EDTBody Mass Jtskk233901/24/2025 9:29 AM EDT Plan of Treatment Health MaintenanceDue DateLast DoneCommentsDepression Mslbexnhu75/18/1981Tobacco Hylcdmzow33/18/1981Adult BMI Follow Up Plan1987DTaP,Tdap and Td Vaccines (1 - Tdap)01/05/1988Zoster (Shingles) Vaccine (1 of 2)2019COVID-19 Vaccine (5 - season)/03/2022, 03/23/2021, 06/30/2020, Additional history existsInfluenza Gzguwjc751/12/2021, 05/09/2021, 03/28/2020Adult BMI Wvazbofhf02/07/01877301/24/2025 Medical Devices Not on file Insurance Care Teams Team MemberRelationshipSpecialtyStart DateEnd Date Mauro Mujica MD [address] [facility] [place] [address] [facility] - [facility]11/29/24
== END 2025-04-15 17:31 | disposition home or self-care (01) ==
LOC: LAB 17:30
PROVIDERS: PCP Family Medicine; Visit Provider Family Medicine
DX: Z00.00 Encounter for general adult medical examination without abnormal findings (principal); Z12.5 Encounter for screening for malignant neoplasm of prostate
CPT/HCPCS: G0328